=== PATIENT | female | born 1975 | race Caucasian/White ===

== ENCOUNTER 2022-03-08 08:44 | Emergency (ER) | payer OTHER, SELFPAY ==
--- NOTE | 2022-03-08 09:26 | EDPHYS ---
Physician Documentation [facility] Name: Judit Cox Age: 46 yrs Sex: Female : 1975 Arrival Date: 03/08/2022 Time: 08:48 Bed 12 Private MD: ED Physician Matthew Ruiz HPI: 03/08 09:00 This 46 yrs old Female presents to ER via Ambulatory with complaints of Thumb Injury, jmm Laceration. 09:00 The patient or guardian reports injury, pain. Onset: The symptoms/episode jmm began/occurred acutely, just prior to arrival. Modifying factors: The symptoms are alleviated by nothing, the symptoms are aggravated by nothing. Associated signs and symptoms: Pertinent negatives: fever. Patient states she accidently sliced her right thumb with a knife. Unsure of tetanus immunizations. . ROS: 09:00 Constitutional: Negative for fever, chills, and weight loss, Cardiovascular: Negative [facility] for chest pain, palpitations, and edema, Respiratory: Negative for shortness of breath, cough, wheezing, and pleuritic chest pain. 09:00 Skin: Positive for laceration(s). 09:00 All other systems are negative. Exam: 09:00 Constitutional: This is a well developed, well nourished patient who is awake, alert, jmm and in no acute distress. Head/Face: atraumatic. Eyes: EOMI, no conjunctival erythema appreciated ENT: Moist Mucus Membranes Neck: Trachea midline, Supple Chest/axilla: Normal chest wall appearance and motion. Cardiovascular: Regular rate and rhythm. No edema appreciated Respiratory: Normal respirations, no respiratory distress appreciated Abdomen/GI: Non distended Back: Normal ROM 09:00 Skin: small avulsion noted to the right thumb. 09:00 Neuro: Orientation: is normal, Mentation: is normal, Memory: is normal. 09:00 Psych: Behavior/mood is pleasant, cooperative. Vital Signs: 10:03 BP 134 / 85; Pulse 74; Resp 16; Pulse Ox 98% on R/A; iw MDM: 09:00 Patient medically screened. [facility] 09:25 Data reviewed: vital signs, nurses notes. Counseling: I had a detailed discussion with jmdyllan the patient and/or guardian regarding: the historical points, exam findings, and any diagnostic results supporting the discharge/admit diagnosis, the need for outpatient follow up, to return to the emergency department if symptoms worsen or persist or if there are any questions or concerns that arise at home. 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 Exp: iw 10/06/2023. Lot #: [id number]. } Route: IM; Site: right deltoid; 11:00 Follow up: Response: No adverse reaction iw Disposition Summary: 03/08/22 09:25 Discharge Ordered Location: Home [facility] Condition: Stable [facility] Diagnosis - Avulsion of the Thumb [facility] Followup: [facility] - With: Private Physician - When: 2 - 3 days - Reason: Recheck today's complaints, Continuance of care, Re-evaluation by your physician Followup: [facility] - With: Solitario Posada MD - When: 2 - 3 days - Reason: Recheck today's complaints, Continuance of care, Re-evaluation by your physician Discharge Instructions: - Discharge Summary Sheet [facility] - Nonsutured Laceration Care jm - Deep Skin Avulsion [facility] Forms: - Medication Reconciliation Form [facility] - Thank You Letter [facility] - Antibiotic Education [facility] - Prescription Opioid Use [facility] Addendum: 03/12/2022 04:04 Co-signature as Attending Physician, Matthew Ruiz MD I agree with the assessment and c connolly plan of care. Signatures: Matthew Ruiz MD MD cha Mickail, Joel, PA PA [facility] Taylor Valverde, RN RN
[2022-03-08] MEDS ORDERED: TETANUS & DIPHTHERIA TOX,ADULT 0.5 ML VIAL ONE (09:54)
--- NOTE | 2022-03-08 10:16 | ER ---
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 Risk iw Assessment: Do you want to hurt yourself or someone else? Patient reports no desire to harm self or others. Onset of symptoms was March 08, 2022. 10:03 Method Of Arrival: Ambulatory iw 10:03 Acuity: SEE 4 iw 10:05 Coronavirus screen: At this time, the client does not indicate any symptoms associated iw with coronavirus-19. Ebola Screen: Patient negative for fever greater than or equal to 101.5 degrees Fahrenheit, and additional compatible Ebola Virus Disease symptoms Patient denies exposure to infectious person. Patient denies travel to an Ebola-affected area in the 21 days before illness onset. No symptoms or risks identified at this time. Initial Sepsis Screen: Does the patient meet any 2 criteria? No. Patient's initial sepsis screen is negative. Does the patient have a suspected source of infection? No. Patient's initial sepsis screen is negative. Triage Assessment: 10:05 General: Appears in no apparent distress. Behavior is calm, cooperative. Neuro: Level iw of Consciousness is awake, alert, obeys commands. Injury Description: Avulsion sustained to palmar aspect of distal phalanx of left thumb. Screenin:14 Abuse screen: Denies threats or abuse. Denies injuries from another. Nutritional iw screening: No deficits noted. Tuberculosis screening: No symptoms or risk factors identified. Fall Risk None identified. Assessment: 10:05 General: Appears in no apparent distress. Behavior is calm, cooperative. Pain: iw Complains of pain in palmar aspect of distal phalanx of left thumb. Neuro: Level of Consciousness is awake, alert, obeys commands, Oriented to person, place, time, situation, Moves all extremities. Cardiovascular: Patient's skin is warm and dry. Respiratory: Respiratory effort is even, unlabored, Respiratory pattern is regular. Derm: Skin is intact, is healthy with good turgor. Musculoskeletal: Range of motion: intact in all extremities. Vital Signs: 10:03 BP 134 / 85; Pulse 74; Resp 16; Pulse Ox 98% on R/A; iw ED Course: 08:48 Patient arrived in ED. am2 08:48 Bryce Pritchard PA is PHCP. [facility] 08:48 Matthew Ruiz MD is Attending Physician. [facility] 09:25 Solitario Posada MD is Referral Physician. [facility] 09:51 Taylor Valverde, RN is Primary Nurse. iw 10:04 Triage completed. iw 10:05 No provider procedures requiring assistance completed. Patient did not have IV access iw during this emergency room visit. 10:14 Arm band placed on. 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 Exp: iw 10/06/2023. Lot #: [id number]. } Route: IM; Site: right deltoid; 11:00 Follow up: Response: No adverse reaction iw Medication: 10:15 Vaccine Information Statement (VIS) provided today. Questions and/or concerns iw addressed. VIS edition date: December 2020. Outcome: 09:25 Discharge ordered by . [facility] 10:14 Discharged to home ambulatory. iw 10:14 Condition: good 10:14 Discharge instructions given to patient, Instructed on discharge instructions, follow up and referral plans. Demonstrated understanding of instructions, follow-up care, medications. 10:15 Patient left the ED. iw Signatures: Bryce Pritchard PA PA jmm Williams, Irene, RN RN iw Anne-Marie Green am2
[2022-03-08 10:46] VITALS: BP 134/85; O2SAT 98
== END 2022-03-08 10:15 | disposition home or self-care (01) ==
LOC: ER 08:44
DX: S61.011A Laceration without foreign body of right thumb without damage to nail, initial encounter (principal); W45.8XXA Other foreign body or object entering through skin, initial encounter; Y93.89 Activity, other specified; Y92.9 Unspecified place or not applicable; Y99.9 Unspecified external cause status; Z23 Encounter for immunization
CPT/HCPCS: 90471; 90714; 99282

== ENCOUNTER 2022-07-18 09:35 | Emergency (ER) | payer SELFPAY ==
--- OUTSIDE RECORDS SUMMARY | 2022-07-18 09:42 | XMS REPORT | Continuity of Care Document ---
:1975 Author Organization [facility] t Address [address] [place] [address] Care Team Providers Name Role Phone Pcp, Patient Does Not Have A Primary Care Physician [id number] KAYA HERRERA Attending Clinician Unavailable Kaya Herrera DO Attending Clinician Doctor Unassigned, [place] Attending Clinician Unavailable Payers Payer Name Policy Type Policy Number Effective Date Expiration Date S ource [employer] [place] - [id number] 2016 00:00:00 OUT OF STATE Problems Condition Condition Condition Status Onset Resolution Last Treating Co mments Source Name Details Category Date Date Treatment Clinician Date B12 B12 Disease Active Univers deficiency deficiency 2-27 it y of 00:00: [place] 00 [facility] Anemia Anemia Disease Active Univers 2-09 ity of 00:00: [place] 00 [facility] Dyslipidem Dyslipidem Disease Active U nivers ia ia 2-09 ity of 00:00: [place] 00 [facility] Dizziness Dizziness Disease Active Uni vers 2-08 ity of 00:00: [place] 00 [facility] History of History of Disease Active U nivers abnormal abnormal 2-07 ity of cervical cervical 00:00: [place] Pap smear Pap smear 00 [facility] Tobacco Tobacco Disease Active Univers use use 1-23 ity of disorder disorder 00:00: [place] 00 [facility] Allergies, Adverse Reactions, Alerts Allergy Allergy Status Severity Reaction(s) Onset Inactive Treating Comm ents Source Name Type Date Date Clinician COCONUT DRUG Active Anaphylaxis 2021-05 Univ ers INGREDI 2-17 ity of 00:00: [place] 00 [facility] Coconut Propensi Active Anaphylaxis 2021-05 Un cassy ty to 17 ity of adverse 00:00: [place] reaction 00 [facility] NO KNOWN Drug Active Univers ALLERGIE Class ity of S [facility] Social History Social Habit Start Date Stop Date Quantity Comments Source History of Smokes tobacco University of tobacco use daily [facility] Alcohol intake 2022-05-04 2022-05-04 0 /d University of 00:00:00 00:00:00 [facility] Tobacco use and 2016-06-25 2016-06-25 Smokeless tobacco Un iversity of exposure 00:00:00 00:00:00 non-user [facility] Sex Assigned [birth year] Universit y of 00:00:00 00:00:00 [facility] Smoking Status Start Date Stop Date Source Smokes tobacco daily 2016-06-25 00:00:00 Univers ity [facility] Medications Ordered Filled Start Stop Current Ordering Indication Dosage Frequency Signature Comments Components Source Medication Medication Date Date Medication? Clinician (SIG) Name Name dexamethaso 2021-05 No 10mg 10 mg, Uni vers ne sod phos 07-05 Oral, ity of PF 20:00: 20:20 ONCE, 1 [place] injection 00 :00 dose, On Medica l 10 mg [facility] 05/04/22 at 1400, 1 mL diazePAM 2021-05 No 5mg 5 mg, Univers (VALIUM) 07-05 Oral, ity of tablet 5 mg 20:00[place] 20:20 [place] dose, On Medical [facility] 05/04/22 at 1400, FUNMILAYO cyclobenzap 2021-05 Yes [id number] 10mg Take 1 Univers rine 10 mg 2-17 tablet by ity of tablet 00:00: mouth 3 [place] 00 (three) Medical times [place] daily as needed for Muscle Spasms. vitamin Yes 1000ug Take 1 Univer s B-12 2-27 tablet by ity of (VITAMIN 00:00: mouth [place] B-12) 1,000 00 daily. Medica l mcg tablet Branch vitamin Yes 1000ug Take 1 Univer s B-12 2-27 tablet by ity of (VITAMIN 00:00: mouth [place] B-12) 1,000 00 daily. Medica l mcg tablet Branch meclizine Yes [id number] 25mg Take 1 Un cassy 25 mg 2-08 tablet by ity of tablet 00:00: mouth 3 00 (three) Medical times [place] daily as needed for Dizziness. meclizine Yes [id number] 25mg Take 1 Un cassy 25 mg 2-08 tablet by ity of tablet 00:00: mouth 3 00 (three) Medical times [place] daily as needed for Dizziness. Vital Signs Vital Name Observation Time Observation Value Comments Source Systolic blood 2022-05-04 19:51:00 159 mm[Hg] Univer sity of pressure [facility] Diastolic blood 2022-05-04 19:51:00 86 mm[Hg] [facility] rate 2022-05-04 19:51:00 86 /min [facility] Body temperature 2022-05-04 19:51:00 37.39 [place]ma [facility] Respiratory rate 2022-05-04 19:51:00 18 /min [facility] Body height 2022-05-04 19:51:00 175.3 cm [facility] Body weight 2022-05-04 19:51:00 83.462 kg [facility] BMI 2022-05-04 19:51:00 27.17 kg/m2 [facility] Oxygen saturation in 2022-05-04 19:51:00 99 /min [facility] Arterial blood by [facility] Pulse oximetry Branch Procedures Procedure Date / Time Performed Performing Clinician [facility] e NOTICE OF PRIVACY 2022-05-04 19:46:43 Doctor Unassigned, No Univ [facility] PRACTICES Name Medical Branch CONSENT/REFUSAL FOR 2022-05-04 19:45:29 [facility], [facility] AND Name Medical Branch TREATMENT Encounters Start End Encounter Admission Attending Care Care Encounter Source Date/Time Date/Time Type Type Clinicians Facility Department ID 2022-04-29 Outpatient [facility] [id number] Common 14:18:03 [id number] [facility] 2022-05-04 2022-05-04 Emergency X JAVIER [facility] ERT [id number] Univers 13:52:00 14:24:00 KAYA young of [facility] 2022-05-04 2022-05-04 Emergency Javier [facility] [id number] Univers 13:52:00 14:24:00 Kaya MOLINA [id number] ity of [place] [id number] [facility] [id number] [facility] 084 Branch 2022-05-04 2022-05-04 Orders Doctor LARON [id number] Univers 00:00:00 00:00:00 Only Unassigned, DAISY [id number] ity of [place] [facility] [id number] [facility] [id number] [facility] 009 Branch Results This patient has no known results.
[2022-07-18] MEDS ORDERED: DIPHENHYDRAMINE 25 MG TAB/CAP ONE (09:48)
--- NOTE | 2022-07-18 09:48 | ER ---
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 pt denies SOB. Pt reports allergy to coconut. 09:38 Onset of symptoms was July 17, 2022. aa5 09:38 Acuity: SEE 3 aa5 :38 Coronavirus screen: At this time, the client does not indicate any symptoms associated aa5 with coronavirus-19. Ebola Screen: Patient denies travel to an Ebola-affected area in the 21 days before illness onset. Onset: The symptoms/episode began/occurred 1 day(s) ago. :38 Method Of Arrival: Ambulatory aa5 09:38 Initial Sepsis Screen: Does the patient meet any 2 criteria? No. Patient's initial aa5 sepsis screen is negative. Does the patient have a suspected source of infection? No. Patient's initial sepsis screen is negative. Risk Assessment: Do you want to hurt yourself or someone else? Patient reports no desire to harm self or others. Historical: - Allergies: 09:48 Coconut; aa5 - Home Meds: 09:48 None [Active]; aa5 - PMHx: 09:48 None; aa5 - PSHx: 09:48 Cholecystectomy; Total abdominal hysterectomy; aa5 Vital Signs: 09:38 BP 148 / 96; Pulse 100; Resp 16 S; Temp 98.6(O); Pulse Ox 96% on R/A; Weight 83.91 kg aa5 (R); Height 5 ft. 9 in. (175.26 cm) (R); 09:38 Body Mass Index 27.32 (83.91 kg, 175.26 cm) aa5 ED Course: :38 Patient arrived in ED. mr 09:38 Radha Felix FNP-C is [facility]. kb 09:38 Angelo Archer MD is Attending Physician. kb 09:38 Arm band placed on Patient placed in an exam room, on a stretcher. aa5 09:44 Angeline Kaur, RN is Primary Nurse. ld1 09:45 Triage completed. aa5 10:12 Patient did not have IV access during this emergency room visit. ld1 Administered Medications: 09:49 Drug: predniSONE 40 mg Route: PO; ld1 09:49 Drug: Pepcid (famotidine) 20 mg Route: PO; ld1 09:49 Drug: Benadryl (diphenhydrAMINE) 25 mg Route: PO; ld1 Outcome: 09:47 Discharge ordered by . kb 10:11 Discharged to home ambulatory. ld1 10:11 Condition: good 10:11 Discharge instructions given to patient, family, Instructed on discharge instructions, follow up and referral plans. medication usage, safety practices, Demonstrated understanding of instructions, follow-up care, medications, Prescriptions given X 2. 10:12 Patient left the ED. ld1 Signatures: Radha Felix, SONIA AMAYAP-Jackie Brantley mr VidalTia, RN RN aa Angeline Kaur, RN RN ld1
--- NOTE | 2022-07-18 09:48 | EDPHYS ---
Physician Documentation [facility] Name: Judit Cox Age: 46 yrs Sex: Female : 1975 Arrival Date: 07/18/2022 Time: 09:38 Bed 13 Private MD: ED Physician Angelo Archer HPI: 07/18 09:46 This 46 yrs old Female presents to ER via Ambulatory with complaints of Allergic kb Reaction, Facial Swelling. 09:46 The patient presents with localized swelling. Onset: The symptoms/episode kb began/occurred yesterday. Associated signs and symptoms: Pertinent positives: swelling. Possible causes: coconut. At home the patient or guardian has treated the symptoms with Benadryl. Severity of symptoms: At their worst the symptoms were mild in the emergency department the symptoms are unchanged. The patient has not experienced similar symptoms in the past. The patient has not recently seen a physician. Historical: - Allergies: 09:48 Coconut; aa5 - Home Meds: 09:48 None [Active]; aa5 - PMHx: 09:48 None; aa5 - PSHx: 09:48 Cholecystectomy; Total abdominal hysterectomy; aa5 ROS: 09:43 Constitutional: Negative for fever, chills, and weight loss. kb 09:43 Neck: Positive for swelling. 09:43 All other systems are negative. Exam: 09:43 Constitutional: This is a well developed, well nourished patient who is awake, alert, kb and in no acute distress. Head/Face: Normocephalic, atraumatic. ENT: Moist Mucous membranes Cardiovascular: Regular rate and rhythm with a normal S1 and S2. No gallops, murmurs, or rubs. No pulse deficits. Respiratory: Respirations even and unlabored. No increased work of breathing. Talking in full sentences Abdomen/GI: Soft, non-tender. No distention MS/ Extremity: Pulses equal, no cyanosis. Neurovascular intact. Full, normal range of motion. Neuro: Awake and alert, GCS 15, oriented to person, place, time, and situation. Moves all extremities. Normal gait. Psych: Awake, alert, with orientation to person, place and time. Behavior, mood, and affect are within normal limits. 09:43 ENT: External ear(s): are unremarkable, Ear canal(s): are normal, TM's: erythema, is not appreciated, fluid levels, on the right, Mouth: is normal. 09:43 Neck: External neck: swelling, that is mild, of the left lateral aspect of neck and left anterior aspect of neck. Vital Signs: 09:38 BP 148 / 96; Pulse 100; Resp 16 S; Temp 98.6(O); Pulse Ox 96% on R/A; Weight 83.91 kg aa5 (R); Height 5 ft. 9 in. (175.26 cm) (R); 09:38 Body Mass Index 27.32 (83.91 kg, 175.26 cm) aa5 MDM: 09:38 Patient medically screened. kb 09:43 Differential diagnosis: anaphylaxis, angioedema. Data reviewed: vital signs, nurses kb notes. Counseling: I had a detailed discussion with the patient and/or guardian regarding: the historical points, exam findings, and any diagnostic results supporting the discharge/admit diagnosis, the need for outpatient follow up, a family practitioner, to return to the emergency department if symptoms worsen or persist or if there are any questions or concerns that arise at home. ED course: Patient is a 46-year-old female who developed swelling to the left side of her neck yesterday after drinking a vitamin water that contained coconut. Patient reports allergy to coconut. On exam patient has mild swelling to left side of neck, respirations even and unlabored, lungs clear bilaterally, posterior pharynx without redness or swelling, left ear exam normal, right TM with fluid levels noted. Gave option of IV or p.o. medications. Patient request oral medications. Educated on return precautions and need for follow-up with PCP.. Administered Medications: 09:49 Drug: predniSONE 40 mg Route: PO; ld1 09:49 Drug: Pepcid (famotidine) 20 mg Route: PO; ld1 09:49 Drug: Benadryl (diphenhydrAMINE) 25 mg Route: PO; ld1 Disposition: 10:31 Co-signature as Attending Physician, Angelo Archer MD I reviewed the patient's care rn provided by the Advanced Practice Provider and agree with the diagnosis and treatment plan. Disposition Summary: 07/18/22 09:47 Discharge Ordered Location: Home kb Condition: Stable kb Diagnosis - Allergy to other foods - coconut kb Followup: kb - With: Emergency Department - When: As needed - Reason: Worsening of condition Followup: kb - With: Private Physician - When: 2 - 3 days - Reason: Recheck today's complaints, Continuance of care, Re-evaluation by your physician Discharge Instructions: - Discharge Summary Sheet kb - Food Allergy, [id number] kb Forms: - Medication Reconciliation Form kb - Thank You Letter kb - Antibiotic Education kb - Prescription Opioid Use kb Prescriptions: - Pepcid 20 mg Oral Tablet - take 1 tablet by ORAL route every 12 hours for 5 days; 10 tablet; Refills: 0, kb Product Selection Permitted - Prednisone 20 mg Oral Tablet - take 1 tablet by ORAL route once daily for 5 days; 5 tablet; Refills: 0, kb Product Selection Permitted Signatures: Radha Felix, ANNEMARIE-C ANNEMARIE-Angelo Wu MD MD rn Calderon, Audri, RN RN aa5 Angeline Kaur RN RN ld1
[2022-07-18] MEDS ORDERED: FAMOTIDINE 20 MG TAB ONE (09:49)
[2022-07-18] MEDS ORDERED: predniSONE 20 MG TAB ONE (09:49)
[2022-07-18 10:35] VITALS: BP 136/78; TEMP 98; O2SAT 100
== END 2022-07-18 10:12 | disposition home or self-care (01) ==
LOC: ER 09:35
DX: R22.1 Localized swelling, mass and lump, neck (principal); Z91.018 Allergy to other foods
CPT/HCPCS: 99283; J7512

== ENCOUNTER 2022-07-25 08:38 | Emergency (ER) | payer SELFPAY ==
--- OUTSIDE RECORDS SUMMARY | 2022-07-25 08:42 | XMS REPORT | Continuity of Care Document ---
:1975 Author Organization [facility] t Address [address] [facility] [address] [place] [address] Care Team Providers Name Role Phone Pcp, Patient Does Not Have A Primary Care Physician [id number] KAYA HERRERA Attending Clinician Unavailable Kaya Herrera DO Attending Clinician Doctor Unassigned, [place] Attending Clinician Unavailable Payers Payer Name Policy Type Policy Number Effective Date Expiration Date S ource [employer] [place] - [id number] 2016 00:00:00 OUT OF STATE Problems Condition Condition Condition Status Onset Resolution Last Treating Co mments Source Name Details Category Date Date Treatment Clinician Date B12 B12 Disease Active Univers deficiency deficiency 2-27 it y of 00:00: [place] 00 [facility] Anemia Anemia Disease Active Univers 2-09 ity of 00:00: [place] 00 [facility] Dyslipidem Dyslipidem Disease Active U nivers ia ia 2-09 ity of 00:00: [place] 00 [facility] Dizziness Dizziness Disease Active Uni vers 2-08 ity of 00:00: [place] 00 Medical Branch History of History of Disease Active U nivers abnormal abnormal 2-07 ity of cervical cervical 00:00: [place] Pap smear Pap smear 00 [facility] Tobacco Tobacco Disease Active Univers use use 1-23 ity of disorder disorder 00:00: [place] 00 [facility] Allergies, Adverse Reactions, Alerts Allergy Allergy Status Severity Reaction(s) Onset Inactive Treating Comm ents Source Name Type Date Date Clinician COCONUT DRUG Active Anaphylaxis 2021-05 Univ ers INGREDI 2-17 ity of 00:00: [place] 00 Medical [facility] Coconut Propensi Active Anaphylaxis 2021-05 Un cassy ty to 17 ity of adverse 00:00: [place] reaction 00 [facility] NO KNOWN Drug Active Univers ALLERGIE Class ity of S [facility] Social History Social Habit Start Date Stop Date Quantity Comments Source History of Smokes tobacco University of tobacco use daily [facility] Alcohol intake 2022-05-04 2022-05-04 0 /d University of 00:00:00 00:00:00 [facility] Tobacco use and 2016-06-25 2016-06-25 Smokeless tobacco Un iversity of exposure 00:00:00 00:00:00 non-user [facility] Sex Ass[birth year] Universit y of 00:00:00 00:00:00 [facility] Smoking Status Start Date Stop Date Source Smokes tobacco daily 2016-06-25 00:00:00 Univers ity [facility] Medications Ordered Filled Start Stop Current Ordering Indication Dosage Frequency Signature Comments Components Source Medication Medication Date Date Medication? Clinician (SIG) Name Name dexamethaso 2021-05 No 10mg 10 mg, Uni vers ne sod phos 07-05 Oral, ity of PF 20:00: 20:20 ONCE, 1 [place] injection 00 :00 dose, On Medica l 10 mg [facility] 05/04/22 at 1400, 1 mL diazePAM 2021-05 No 5mg 5 mg, Univers (VALIUM) 07-05 Oral, ity of tablet 5 mg 20:00[place] 20[place]20 [place] dose[place] On Medical [facility] 05/04/22 at 1400, FUNMILAYO cyclobenzap 2021-05 Yes [id number] 10mg Take 1 Univers rine 10 mg 2-17 tablet by ity of tablet 00:00: mouth 3 [place] 00 (three) Medical times [place] daily as needed for Muscle Spasms. vitamin Yes 1000ug Take 1 Univer s B-12 2-27 tablet by ity of (VITAMIN 00:00: mouth [place] B-12) 1,000 00 daily. Medica l mcg tablet Branch vitamin Yes 1000ug Take 1 Univer s B-12 2-27 tablet by ity of (VITAMIN 00:00: mouth [place] B-12) 1,000 00 daily. Medica l mcg tablet Branch meclizine Yes [id number] 25mg Take 1 Un cassy 25 mg 2-08 tablet by ity of tablet 00:00: mouth 3 00 (three) Medical times [place] daily as needed for Dizziness. meclizine Yes [id number] 25mg Take 1 Un cassy 25 mg 2-08 tablet by ity of tablet 00:00: mouth 3 00 (three) Medical times [place] daily as needed for Dizziness. Vital Signs Vital Name Observation Time Observation Value Comments Source Systolic blood 2022-05-04 19:51:00 159 mm[Hg] Univer sity of pressure [facility] Diastolic blood 2022-05-04 19:51:00 86 mm[facility]Hg[facility] 2022-05-04 19:51:00 86 /min [facility] Body temperature 2022-05-04 19:51:00 37.39 [facility] Respiratory rate 2022-05-04 19:51:00 18 /min [facility] Body height 2022-05-04 19:51:00 175.3 cm [facility] Body weight 2022-05-04 19:51:00 83.462 kg [facility] BMI 2022-05-04 19:51:00 27.17 kg/m2 [facility] Oxygen saturation in 2022-05-04 19:51:00 99 /min [facility] Arterial blood by [facility] Pulse oximetry Branch Procedures Procedure Date / Time Performed Performing Clinician [facility] e NOTICE OF PRIVACY 2022-05-04 19:46:43 Doctor Unassigned, No Univ [facility] Name Medical Branch CONSENT/REFUSAL FOR 2022-05-04 19:45:29 [facility], [facility] AND Name Medical Branch TREATMENT Encounters Start End Encounter Admission Attending Care Care Encounter Source Date/Time Date/Time Type Type Clinicians Facility Department ID 2022-04-29 Outpatient [facility] [id number] Common 14:18:03 [id number] [facility] 2022-05-04 2022-05-04 Emergency X JAVIER [facility] ERT [id number] Univers 13:52:00 14:24:00 KAYA young of [facility] 2022-05-04 2022-05-04 Emergency Javier [facility] [id number] Univers 13:52:00 14:24:00 Kaya MOLINA [id number] ity of [place] [id number] [facility] [id number] [facility] 084 Branch 2022-05-04 2022-05-04 Orders Doctor LARON [id number] Univers 00:00:00 00:00:00 Only Unassigned, DAISY [id number] ity of [place] [facility] [id number] [facility] [id number] [facility] 009 Branch Results This patient has no known results.
[2022-07-25] MEDS ORDERED: KETOROLAC 30 MG/ML INJ ONE (09:19)
[2022-07-25] MEDS ORDERED: dexAMETHasone 10 MG/ML VIAL ONE (09:19)
[2022-07-25] MEDS ORDERED: HYDROCODONE/CHLORPHEN 5 ML/OSYR ONE (09:19)
[2022-07-25] MEDS ORDERED: ALBUTEROL 2.5 MG/3 ML NEB SOL ONE (09:19)
--- NOTE | 2022-07-25 10:04 | RAD REPORT ---
[facility]25/[facility] 9:30 am CLINICAL HISTORY: Chest pain;Cough COMPARISON: No comparisons TECHNIQUE: PA and lateral views of the chest. FINDINGS: Right hemidiaphragm is elevated. Patchy right basilar airspace opacities, could reflect at electasis or early airspace disease. No pneumothorax or effusion. The cardiomediastinal contours are unremarkable. IMPRESSION: Patchy right basilar airspace opacities, could reflect atelectasis or early airspace dis ease.
[2022-07-25 10:34] LABS: SARS-COV-2 RT PCR NEGATIVE (NEGATIVE)
[2022-07-25] MEDS ORDERED: NA CHLORIDE 0.9% 0 ML ONE (11:23)
[2022-07-25] MEDS ORDERED: CEFTRIAXONE 1000 MG/VIAL ONE (11:23)
[2022-07-25] MEDS ORDERED: LIDOCAINE 1% MPF 5 ML VIAL ONE (11:28)
[2022-07-25 12:58] VITALS: TEMP 97.5
[2022-07-25 13:01] VITALS: BP 138/80; O2SAT 96
--- NOTE | 2022-07-29 13:18 | EKG ---
Test Date: 2022-07-25 Test Time: 08:55:58 Combiner: DADA MEASUREMENT RESULTS: Intervals: Rate: 97 AR: 124 QRSD: 78 QT: 346 QTc: 439 [place]: P: 37 AR: 124 QRS: 45 T: 51 INTERPRETIVE STATEMENTS: Normal sinus rhythm Normal ECG No previous ECG available for comparison Electronically Signed On 07-29-22 13:09:47 CDT by Jean [place]
--- NOTE | 2022-07-29 13:18 | EKG ---
Test Date: 2022-07-25 Test Time: 08:57:12 Line Haul Driver: DADA MEASUREMENT RESULTS: Intervals: Rate: 94 MT: 122 QRSD: 78 QT: 340 QTc: 425 [place]: P: 52 MT: 122 QRS: 52 T: 52 INTERPRETIVE STATEMENTS: Normal sinus rhythm Normal ECG No previous ECG available for comparison Electronically Signed On 07-29-22 13:09:45 CDT by Jean [place]
--- NOTE | 2022-08-09 15:20 | ER ---
Nurse's Notes [facility] Name: Judit Cox Age: 46 yrs Sex: Female : 1975 Arrival Date: 07/25/2022 Time: 08:39 Bed 5 Private MD: Diagnosis: Pneumonia, unspecified organism Presentation: 07/25 08:43 Chief complaint: Right sided chest pressure, cough, congestion, pain with cough, and hb SOB x 2 days. Coronavirus screen: Client presents with at least one sign or symptom that may indicate coronavirus-19. Standard/surgical mask placed on the client. Provider contacted for isolation considerations. Ebola Screen: No symptoms or risks identified at this time. Initial Sepsis Screen: Does the patient meet any 2 criteria? No. Patient's initial sepsis screen is negative. Does the patient have a suspected source of infection? No. Patient's initial sepsis screen is negative. Risk Assessment: Do you want to hurt yourself or someone else? Patient reports no desire to harm self or others. Onset of symptoms was July 24, 2022. 08:43 Method Of Arrival: Ambulatory hb 08:43 Acuity: SEE 3 hb Triage Assessment: 09:00 General: Appears in no apparent distress. Behavior is calm, cooperative. Pain: db Complains of pain in chest. Respiratory: Reports shortness of breath cough that is Breath sounds are coarse bilaterally. Onset: The symptoms/episode began/occurred gradually, the patient has mild shortness of breath. 09:00 Neuro: Level of Consciousness is awake, alert, obeys commands, Oriented to person, db place, time. 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 - Social history:: Smoking status: Patient denies any tobacco usage or history of. Screenin:00 [facility] ED Fall Risk Assessment (Adult) History of falling in the last 3 months, db including since admission No falls in past 3 months (0 pts) Confusion or Disorientation No (0 pts) Intoxicated or Sedated No (0 pts) Impaired Gait No (0 pts) Mobility Assist Device Used No (0 pt) Altered Elimination No (0 pt) Score/Fall Risk Level 0 - 2 = Low Risk Oriented to surroundings, Maintained a safe environment, Educated pt \T\ family on fall prevention, incl call for assistance when getting out of bed. Abuse screen: Denies threats or abuse. Denies injuries from another. Nutritional screening: No deficits noted. Tuberculosis screening: No symptoms or risk factors identified. Assessment: 09:00 Reassessment: Patient appears in no apparent distress at this time. Patient and/or db family updated on plan of care and expected duration. Pain level reassessed. Patient is alert, oriented x 3, equal unlabored respirations, skin warm/dry/pink. sob at rest gradually worse. right side neck feels swollen. Reassessment: chest pain with cough. General: Appears in no apparent distress. comfortable. Pain: Complains of pain in chest. Neuro: Level of Consciousness is awake, alert, obeys commands, Oriented to person, place, time, situation, Speech is normal. Cardiovascular: Reports chest pain, with cough Capillary refill < 3 seconds Rhythm is sinus rhythm. 10:00 Reassessment: Patient appears in no apparent distress at this time. Patient and/or db family updated on plan of care and expected duration. Pain level reassessed. Patient is alert, oriented x 3, equal unlabored respirations, skin warm/dry/pink. 11:00 Reassessment: Patient appears in no apparent distress at this time. Patient and/or db family updated on plan of care and expected duration. Pain level reassessed. Patient is alert, oriented x 3, equal unlabored respirations, skin warm/dry/pink. 11:38 Respiratory: Airway is patent Respiratory effort is even, unlabored. db Vital Signs: 08:43 BP 183 / 93; Pulse 105; Resp 24; Temp 97.5(TE); Pulse Ox 100% on R/A; Weight 83.91 kg; hb Height 5 ft. 9 in. ; Pain 5/10; 09:00 BP 157 / 90; Pulse 96; Resp 18; Pulse Ox 96% on Nebulizer Mask; db 10:30 BP 141 / 75; Pulse 82; Resp 16; Pulse Ox 94% ; db 11:00 BP 138 / 80; Pulse 88; Resp 16; Pulse Ox 96% on R/A; db 08:43 Body Mass Index 27.32 (83.91 kg, 175.26 cm) hb 08:43 Pain Scale: Adult hb ED Course: 08:39 Patient arrived in ED. am2 08:40 Lane Solis, ROWENA is PHCP. pm1 08:40 Angelo Archer MD is Attending Physician. pm1 08:44 Triage completed. hb 09:05 Gricelda Cavanaugh, RN is Primary Nurse. db 09:08 EKG done, by ED staff, reviewed by Lane Solis NP. em1 09:31 Chest Pa And Lat (2 Views) XRAY In Process Unspecified. EDMS 11:37 Patient has correct armband on for positive identification. Placed in gown. Bed in low db position. Call light in reach. Side rails up X 1. Client placed on continuous cardiac and pulse oximetry monitoring. NIBP monitoring applied. Warm blanket given. 11:38 No provider procedures requiring assistance completed. Patient did not have IV access db during this emergency room visit. 11:38 Patient placed in an exam room. db Administered Medications: 09:20 Drug: Tussionex Pennkinetic ER PO Suspension 5 ml Route: PO; db 09:54 Follow up: Response: No adverse reaction; Pain is decreased db 11:32 Follow up: Response: No adverse reaction db 09:22 Drug: Ketorolac IM 60 mg Route: IM; Site: left ventrogluteal; db 11:32 Follow up: Response: No adverse reaction; Pain is decreased db 09:23 Drug: Dexamethasone IM 10 mg Route: IM; Site: right ventrogluteal; db 11:32 Follow up: Response: No adverse reaction db 09:30 Drug: Albuterol Inhalation 5 mg Route: Inhalation; db 11:32 Follow up: Response: No adverse reaction db 10:09 CANCELLED (pending covid and flu swabs): Rocephin IV 1 grams IV at calculated rate pm1 once; Given slow IV push per pharmacy instructions 11:22 CANCELLED (Physician Discretion): Rocephin IV 1 grams IV at calculated rate once; Given pm1 slow IV push per pharmacy instructions 11:22 Drug: Rocephin (cefTRIAXone) IM 1 grams Route: IM; Site: left ventrogluteal; db 11:33 Follow up: Response: No adverse reaction db Medication: 09:00 VIS not applicable for this client. db Outcome: 10:54 Discharge ordered by . pm1 11:38 Discharged to home ambulatory. db 11:38 Condition: stable 11:38 Discharge instructions given to patient, Instructed on discharge instructions, follow up and referral plans. Prescriptions given X 3. 11:44 Patient left the ED. db Signatures: Dispatcher [employer] [place] Harkins em1 Lane Solis, GLASS TECHNICIAN GLASS TECHNICIAN pm1 Karyn Lebron, RN RN Anne-Marie Cohen am2 Gricelda Cavanaugh RN RN db
--- NOTE | 2022-08-09 15:20 | EDPHYS ---
Physician Documentation [facility] Name: Judit Cox Age: 46 yrs Sex: Female : 1975 Arrival Date: 07/25/2022 Time: 08:39 Bed 5 Private MD: ED Physician Angelo Archer HPI: 07/25 09:00 This 46 yrs old Female presents to ER via Ambulatory with complaints of Cough, Chest pm1 pain, Breathing Difficulty, Chest Pressure. 09:00 The patient or guardian reports cough, with productive sputum. Onset: The pm1 symptoms/episode began/occurred 3 day(s) ago. Severity of symptoms: in the emergency department the symptoms are actually worse. Modifying factors: The symptoms are alleviated by nothing, the symptoms are aggravated by nothing. Associated signs and symptoms: Pertinent positives: chest pain, with cough, shortness of breath, post nasal drainage, Pertinent negatives: diarrhea, ear ache, fever, nausea, sore throat, vomiting. The patient has not experienced similar symptoms in the past. The patient has not recently seen a physician. 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 - Social history:: Smoking status: Patient denies any tobacco usage or history of. ROS: 09:00 Constitutional: Negative for fever, chills, and weight loss. pm1 09:00 Abdomen/GI: Negative for abdominal pain, nausea, vomiting, diarrhea, and constipation, Back: Negative for injury and pain, MS/Extremity: Negative for injury and deformity, Skin: Negative for injury, rash, and discoloration, Neuro: Negative for headache, weakness, numbness, tingling, and seizure. 09:00 Cardiovascular: Positive for chest pain, with cough, of the anterior aspect of right upper chest. 09:00 Respiratory: Positive for cough, shortness of breath. 09:00 All other systems are negative. Exam: 09:00 Constitutional: This is a well developed, well nourished patient who is awake, alert, pm1 and in no acute distress. Head/Face: Normocephalic, atraumatic. 09:00 Back: No spinal tenderness. No costovertebral tenderness. Full range of motion. Skin: Warm, dry with normal turgor. Normal color with no rashes, no lesions, and no evidence of cellulitis. MS/ Extremity: Pulses equal, no cyanosis. Neurovascular intact. Full, normal range of motion. 09:00 Eyes: Exam is negative for acute changes. 09:00 ENT: Exam is negative for acute changes, External ear(s): no acute changes, Ear canal(s): no acute changes, TM's: no acute changes, Mouth: no acute changes, Lips: normal, moist, Oral mucosa: normal, pink and intact, moist. 09:00 Neck: Exam negative for acute changes. 09:00 Chest/axilla: Inspection: normal, Palpation: tenderness, that is moderate, of the anterior aspect of right upper chest, that totally reproduces the patient's complaints, focal point pain on right upper chest that is reproducible with palpation, deep breathing, and coughing. 09:00 Cardiovascular: Exam negative for acute changes, Rate: normal, Rhythm: regular, Pulses: no pulse deficits are appreciated, Heart sounds: normal, normal S1and S2. 09:00 Respiratory: Exam negative for acute changes, respiratory distress, shortness of breath, Breath sounds: are clear throughout. 09:00 Abdomen/GI: Exam negative for acute changes, Inspection: abdomen appears normal, Palpation: abdomen is soft and non-tender. 09:00 Neuro: Exam negative for acute changes, Orientation: is normal, Mentation: is normal, Motor: is normal, moves all fours. Vital Signs: 08:43 BP 183 / 93; Pulse 105; Resp 24; Temp 97.5(TE); Pulse Ox 100% on R/A; Weight 83.91 kg; hb Height 5 ft. 9 in. ; Pain 5/10; 09:00 BP 157 / 90; Pulse 96; Resp 18; Pulse Ox 96% on Nebulizer Mask; db 10:30 BP 141 / 75; Pulse 82; Resp 16; Pulse Ox 94% ; db 11:00 BP 138 / 80; Pulse 88; Resp 16; Pulse Ox 96% on R/A; db 08:43 Body Mass Index 27.32 (83.91 kg, 175.26 cm) hb 08:43 Pain Scale: Adult hb MDM: 08:45 Patient medically screened. pm1 09:21 Differential Diagnosis: Bronchitis Influenza Upper Respiratory Infection Pneumonia pm1 Other COVID. 09:31 Data reviewed: vital signs. pm1 10:53 Counseling: I had a detailed discussion with the patient and/or guardian regarding: the pm1 historical points, exam findings, and any diagnostic results supporting the discharge/admit diagnosis, lab results, radiology results, the need for outpatient follow up, to return to the emergency department if symptoms worsen or persist or if there are any questions or concerns that arise at home. 07/25 09:12 Order name: COVID-19/FLU A+B; Complete Time: 10:47 pm1 07/25 08:58 Order name: Chest Pa And Lat (2 Views) XRAY; Complete Time: 10:04 pm1 07/25 08:58 Order name: EKG; Complete Time: 08:58 pm1 07/25 08:58 Order name: EKG - Nurse/Tech; Complete Time: 09:06 pm1 EC:11 Rate is 94 beats/min. Rhythm is regular, Normal Sinus Rhythm with No ectopy. QRS [place] pm1 is Normal. CA interval is normal. QRS interval is normal. QT interval is normal. No Q waves. T waves are Normal. No ST changes noted. Clinical impression: Normal ECG. Administered Medications: 09:20 Drug: Tussionex Pennkinetic ER PO Suspension 5 ml Route: PO; db 09:54 Follow up: Response: No adverse reaction; Pain is decreased db 11:32 Follow up: Response: No adverse reaction db 09:22 Drug: Ketorolac IM 60 mg Route: IM; Site: left ventrogluteal; db 11:32 Follow up: Response: No adverse reaction; Pain is decreased db 09:23 Drug: Dexamethasone IM 10 mg Route: IM; Site: right ventrogluteal; db 11:32 Follow up: Response: No adverse reaction db 09:30 Drug: Albuterol Inhalation 5 mg Route: Inhalation; db 11:32 Follow up: Response: No adverse reaction db 10:09 CANCELLED (pending covid and flu swabs): Rocephin IV 1 grams IV at calculated rate pm1 once; Given slow IV push per pharmacy instructions 11:22 CANCELLED (Physician Discretion): Rocephin IV 1 grams IV at calculated rate once; Given pm1 slow IV push per pharmacy instructions 11:22 Drug: Rocephin (cefTRIAXone) IM 1 grams Route: IM; Site: left ventrogluteal; db 11:33 Follow up: Response: No adverse reaction db Disposition: 15:18 Co-signature as Attending Physician, Angelo Archer MD I reviewed the patient's care rn provided by the Advanced Practice Provider and agree with the diagnosis and treatment plan. Disposition Summary: 07/25/22 10:54 Discharge Ordered Location: Home pm1 Problem: new pm1 Symptoms: have improved pm1 Condition: Stable pm1 Diagnosis - Pneumonia, unspecified organism pm1 Followup: pm1 - With: Emergency Department - When: As needed - Reason: Worsening of condition Followup: pm1 - With: Private Physician - When: 2 - 3 days - Reason: Recheck today's complaints, Continuance of care, Re-evaluation by your physician Discharge Instructions: - Discharge Summary Sheet pm1 - Community-Acquired Pneumonia, Adult pm1 Forms: - Work release form pm1 - Medication Reconciliation Form pm1 - Thank You Letter pm1 - Antibiotic Education pm1 - Prescription Opioid Use pm1 Prescriptions: - Ventolin HFA 90 mcg/actuation Inhalation HFA Aerosol Inhaler - inhale 2 inhalation by INHALATION route every 4 to 6 hours As needed; 1 unit; pm1 Refills: 0, Product Selection Permitted - Zithromax Z-Rich 250 mg Oral Tablet - take 1 tablet by ORAL route as directed for 5 days Day 1 - take two (2) tablets pm1 one time. Day 2, 3, 4 , 5 take one (1) tablet once daily.; 6 tablet; Refills: 0, Product Selection Permitted - Guaifenesin AC 10-100 mg/5 mL Oral Liquid - take 10 milliliters by ORAL route every 4 hours As needed; 240 milliliter; pm1 Refills: 0, Product Selection Permitted Signatures: Dispatcher [employer] EDME Angelo Archer MD MD rn Marinas, Patrick, NP BATH MIX OPERATOR pm1 Karyn Lebron RN RN hb Benton, Danielle, RN RN db Corrections: (The following items were deleted from the chart) 10:09 10:05 Rocephin IV 1 grams IV at calculated rate once; Given slow IV push per pharmacy pm1 instructions ordered. pm1 11:22 10:48 Rocephin IV 1 grams IV at calculated rate once; Given slow IV push per pharmacy pm1 instructions ordered. pm1
== END 2022-07-25 11:44 | disposition home or self-care (01) ==
LOC: ER 08:38
DX: J18.9 Pneumonia, unspecified organism (principal); Z20.822 Contact with and (suspected) exposure to COVID-19
CPT/HCPCS: 0240U; 71046; 93005; 96372; 99285; J1100; J2001; J7613

== ENCOUNTER 2022-10-05 20:47 | Emergency (ER) | payer OTHER ==
--- OUTSIDE RECORDS SUMMARY | 2022-10-05 20:52 | XMS REPORT | Clinical Summary ---
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 HYDROcodone-acetamin Take 1 tablet 60 tablet 0 09/10/2022 Active ophen (NORCO) 5 by mouth mg-325 mg per every 6 (six) tabletIndications: hours as Non-small cell lung needed for cancer <Right side>, moderate Neoplasm related pain. pain (acute) (chronic) clopidogrel (PLAVIX) Take 1 tablet 30 tablet 0 09/18/2022 Active 75 mg (75 mg) by tabletIndications: mouth daily. Non-small cell lung cancer <Right side> clopidogrel (Plavix) Take 1 tablet 60 tablet 0 09/19/2022 07/0 /20 Active 75 mg (75 mg) by 23 tabletIndications: mouth daily Non-small cell lung for 60 days. cancer <Right side>, Superior vena cava syndrome apixaban (Eliquis) 5 Take 1 tablet 60 tablet 10 09/19/2022 03/2 20 Active mg (5 mg) by 24 tabletIndications: mouth every Non-small cell lung 12 (twelve) cancer <Right side>, hours for 330 Stent in anterior days. descending branch of left coronary artery pantoprazole Take 1 tablet 30 tablet 1 09/25/2022 Ac tive (PROTONIX) 40 mg EC (40 mg) by tabletIndications: mouth every Non-small cell lung morning cancer <Right side> before breakfast. clopidogrel (PLAVIX) TAKE 1 TABLET 0 09/04/2022/0 08/05 Discontinued 75 mg tablet BY MOUTH IN 23 (Reor martha) THE MORNING dexAMETHasone TAKE 1 TABLET 0 09/04/2022 09/19/19 D iscontinued (DECADRON) 4 mg BY MOUTH IN 23 (D uplicate tablet THE MORNING order) enoxaparin (LOVENOX) INJECT 0.9 ML 0 09/05/20220 09/05 Discontinued 100 mg/1 mL UNDER THE 23 prefilled syringe SKIN EVERY 12 HOURS dexAMETHasone Take 1 tablet 18 tablet 2 09/15/2022 09/19/19 D iscontinued (DECADRON) 4 mg (4 mg) by 23 tabletIndications: mouth twice Non-small cell lung daily. On the cancer <Right side> day before and day after chemo ondansetron (ZOFRAN) Take 1 tablet 30 tablet 3 09/15/20220 08/05 Discontinued 8 mg (8 mg) by 23 tabletIndications: mouth every 8 Non-small cell lung (eight) hours cancer <Right side> as needed for nausea or vomiting. folic acid (FOLVITE) Take 1 tablet 30 tablet 2 09/15/20220 08/05 Discontinued 400 mcg (400 mcg) by 23 tabletIndications: mouth daily. Non-small cell lung cancer <Right side> pantoprazole Take 1 tablet 0 09/26/19 Dis continued (PROTONIX) 40 mg EC (40 mg) by 23 (Reorder) tablet mouth every morning before breakfast. ondansetron (ZOFRAN) Take 1 tablet 30 tablet 2 10/08/2022/0 10/05 Discontinued 8 mg (8 mg) by 23 tabletIndications: mouth every 8 Non-small cell lung (eight) hours cancer <Right side> as needed for nausea or vomiting. 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 Added automatically from request for inna koenig [id number] Cobalamin deficiency 07/15/2016 Anemia 06/27/2016 Chronic obstructive pulmonary disease 09/09/2014 Encounters Date Type Specialty Care Team Description 10/05/2022 Nurse Triage Rosa Wyatt PA 10/03/2022 Telephone Oncology Nicole Canales RN 09/25/2022 Infusion Infusion Services Mojgan Lopez MD Non-small cell lung cancer <Right side> (Primary Dx); Rosario Khanna Secondary an d unspecified malignant neoplasm of lymph nodes of head, face and neck CHELE Engle 09/25/2022 Follow-Up Thoracic Medicine Mojgan Lopez MD Non-small cell lung cancer <Right side> (Primary Dx); Secondary and u nspecified malignant neoplasm of lymph nodes of head, face and neck 09/25/2022 Travel 09/24/2022 Orders Only Thoracic Medicine Serafin Whitman-sm all cell Eloina, RN lung cancer <Right side> (Primary Dx) 09/24/2022 Orders Only Oncology Kaykay Hoyt, FINANCIAL SERVICES EDUCATION CONSULTANT 09/23/2022 Orders Only Head and Neck Medical Stewart Curry Non -small cell Oncology lung cancer <Right side> (Primary Dx) 09/20/2022 Orders Only Thoracic Medicine Serafin Whitman Non-sm all cell Eloina, RN lung cancer <Right side> (Primary Dx) 09/19/2022 Ancillary Procedure Radiology Kirit Escobar MD Non- small cell lung cancer <Right side> 09/19/2022 Telephone Oncology Kaykay Hoyt, FINANCIAL SERVICES EDUCATION CONSULTANT 09/19/2022 Orders Only Oncology Kaykay Hoyt, Superior ve na cava syndrome (Primary Dx); FINANCIAL SERVICES EDUCATION CONSULTANT Non-small cell lung cancer <Right side> 09/19/2022 Orders Only Oncology Papito Flores NP 09/19/2022 Travel 09/18/2022 Follow-Up Thoracic Medicine Mojgan Lopez MD Non-small cell lung cancer <Right side> (Primary Dx); Stent in anteri or descending branch of left coronary artery; Secondary and u nspecified malignant neoplasm of lymph nodes of head, face and neck 09/18/2022 Consult Radiation Oncology Kirit Escobar MD Non-s mall cell lung cancer <Right side> 09/18/2022 Documentation Radiation Oncology Kirit Escobar MD 09/18/2022 Orders Only Thoracic Medicine Mojgan Lopez MD 09/18/2022 Orders Only Radiation Oncology Kirit Escobar MD Non-s mall cell lung cancer <Right side> (Primary Dx) 09/18/2022 Travel 09/17/2022 Orders Only Oncology Papito Flores NP 09/16/2022 Anesthesia Event Radiology Buffy Serrano MD 09/16/2022 Hospital Encounter Radiology Mojgan Lopez MD Non-small cell Buffy Serrano, lung cancer MD <Unspecified Fang, Maddy, ENGINEERING RESEARCH MANAGER side> 09/16/2022 Orders Only Thoracic Surgery Britta Mckeon, FINANCIAL SERVICES EDUCATION CONSULTANT 09/16/2022 Travel 09/13/2022 Anesthesia Event Anesthesiology Paulette Hernandez, CHELE 09/13/2022 POEM Appointments Anesthesiology Mojgan Lopez MD 09/13/2022 Hospital Encounter Pulmonology Britta Mckeon Non-sma ll cell M, FINANCIAL SERVICES EDUCATION CONSULTANT lung cancer <Right side> 09/13/2022 Ancillary Procedure Radiology Mojgan Lopez MD Non-sma ll cell lung cancer <Unspecified side> 09/13/2022 Ancillary Procedure Radiology Mojgan Lopez MD Non-sma ll cell lung cancer <Unspecified side> 09/13/2022 Hospital Encounter Radiology Papito Flores NP Non-sm all cell lung cancer <Right side> 09/13/2022 Orders Only Thoracic Medicine Mojgan Lopez MD Non-small cell lung cancer <Unspecified side> (Primary Dx) 09/13/2022 Travel 09/09/2022 Ancillary Procedure Radiology Mojgan Lopez MD Cancer 09/09/2022 Ancillary Procedure Radiology Mojgan Lopez MD Cancer 09/09/2022 Ancillary Procedure Radiology Mojgan Lopez MD Cancer 09/09/2022 Ancillary Procedure Radiology Mojgan Lopez MD Cancer 09/09/2022 Ancillary Procedure Radiology Mojgan Lopez MD Cancer 09/09/2022 Ancillary Procedure Radiology Mojgan Lopez MD Cancer 09/09/2022 Ancillary Procedure Radiology Mojgan Lopez MD Cancer 09/09/2022 Ancillary Procedure Radiology Mojgan Lopez MD Cancer 09/09/2022 Office Visit Thoracic Medicine Mojgan Lopez MD Non-small cell lung cancer <Right side> (Primary Dx); Neoplasm relate d pain (acute) (chronic) 09/09/2022 Orders Only Thoracic Surgery Britta Mckeon Non-small cell M, FINANCIAL SERVICES EDUCATION CONSULTANT lung cancer <Right side> (Primary Dx) 09/09/2022 Travel 09/09/2022 Orders Only Radiology Beth Leon MD 09/09/2022 Orders Only Thoracic Medicine Mojgan Lopez MD Non-small cell lung cancer <Unspecified side> (Primary Dx) 09/05/2022 NPR Patient Access Mojgan Lopez MD Services 09/05/2022 Lab Requisition El Garcia MD Nawgiri, Jazmin Urena MD 09/05/2022 Travel after 10/05/2021 Surgical History Surgery Date Site/Laterality Comments LAPAROSCOPIC HYSTERECTOMY 2001 ROBOTIC ASSISTED CHOLYCYSTECTOMY 05/19/2016 - 05/18/2017 N/A Medical History Medical History Date Comments Cervical cancer 2001 Family History Medical History Relation Name Comments Emphysema Father Diabetes Mother Fibromyalgia Mother Hypertension Mother Kidney cancer Paternal Grandfather Alzheimer's disease Paternal Grandmother Relation Name Status Comments Father Mother Paternal Grandfather Paternal Grandmother Social History Tobacco Use Types Packs/Day Years Used Date Smoking Tobacco: Former Cigarettes 1.5 20 Quit : 08/09/2022 Smokeless Tobacco: Never Tobacco Cessation: Counseling Given: Not Answered Alcohol Use Standard Drinks/Week Comments Not Currently 0 (1 standard drink = 0.6 oz pure alcoho l) Sex Assigned at Date Recorded Not on file Job Start Date Occupation Industry Not on file Not on file Not on file COVID-19 Exposure Response Date Recorded In the last 10 days, have you been in contact with No / Unsu re 09/25/2022 9:27 AM CDT someone who was confirmed or suspected to have Coronavirus/COVID-19? Obstetrics History Last Filed Vital Signs Vital Sign Reading Time Taken Comments Blood Pressure 143/89 09/25/2022 11:18 AM CDT Pulse 102 09/25/2022 11:18 AM CDT Temperature 37 C (98.6 F) 09/25/2022 11:18 AM CDT Respiratory Rate 19 09/25/2022 11:18 AM CDT Oxygen Saturation 97% 09/19/2022 9:30 AM CDT Inhaled Oxygen Concentration - - Weight 87.3 kg (192 lb 7.4 oz) 09/25/2022 11:18 AM CDT Height 170.1 cm (5' 6.97") 09/25/2022 11:18 AM CDT Body Mass Index 30.17 09/25/2022 11:18 AM CDT Plan of Treatment Date Type Specialty Care Team Description 10/16/2022 Lab Lab Mojgan Lopez MD [address] [place] [address] 7703 (Kenan rk) 10/16/2022 Follow-Up Thoracic Medicine Mojgan Lopez MD [address] [place] [address] 7703 (Kenan rk) 10/16/2022 Infusion Infusion Services Mojgan Lopez MD [address] [place] [address] 7703 (Kenan rk) 11/06/2022 Lab Lab Mojgan Lopez MD [address] [place] [address] 7703 (Wo rk) 11/06/2022 Follow-Up Thoracic Medicine Mojgan Lopez MD [address] [place] [address] 7703 (Kenan rk) 11/06/2022 Infusion Infusion Services Mojgan Lopez MD [address] [place] [address] 7703 (Kenan rk) 11/27/2022 Lab Lab Mojgan Lopez MD [address] [place], [place] 7703 (Wo rk) 11/27/2022 Follow-Up Thoracic Medicine Mojgan Lopez MD [address] [place], [place] 7703 (Wo rk) 11/27/2022 Infusion Infusion Services Mojgan Lopez MD [address] [place], [place] 7703 (Kenan rk) Health Maintenance Due Date Last Done Comments COVID-19 Vaccination (#1) 04[birth year]06/1976 Medical Devices Implanted Type Area Outbound Sales Representative Device Identifier Shelf Exp iration Model / Serial Date / Lot Stent Stent Procedures Procedure Name Priority Date/Time Associated Comments Diagnosis LACTATE DEHYDROGENASE Routine 09/25/2022 10:41 Non-small cell Results for this AM CDT lung cancer <Right procedure are in side> the results section. HUMAN CHORIONIC Routine 09/25/2022 9:29 Non-small cell Results for this GONADOTROPIN, AM CDT lung cancer <Right procedur e are in QUALITATIVE, URINE side> the resul ts section. MANUAL DIFFERENTIAL Routine 09/25/2022 9:26 Non-small cell Res ults for this AM CDT lung cancer <Right procedure are in side> the results section. Results CBC Routine 09/25/2022 9:26 Non-small cell Results fo r this AM CDT lung cancer <Right procedure are in side> the results section. FRACTIONATED BILIRUBIN Routine 09/25/2022 9:26 Non-small cell Results for this AM CDT lung cancer <Right procedure are in side> the results section. TOTAL PROTEIN Routine 09/25/2022 9:26 Non-small cell Results f or this AM CDT lung cancer <Right procedure are in side> the results section. ASPARTATE Routine 09/25/2022 9:26 Non-small cell Results fo r this AMINOTRANSFERASE AM CDT lung cancer <Right proce dure are in side> the results section. ALANINE AMINOTRANSFERASE Routine 09/25/2022 9:26 Non-small coretta l Results for this AM CDT lung cancer <Right procedure are in side> the results section. ALKALINE PHOSPHATASE Routine 09/25/2022 9:26 Non-small cell Re sults for this AM CDT lung cancer <Right procedure are in side> the results section. CALCIUM LEVEL TOTAL Routine 09/25/2022 9:26 Non-small cell Res ults for this AM CDT lung cancer <Right procedure are in side> the results section. .GLOMERULAR FILTRATION Routine 09/25/2022 9:26 Non-small cell Results for this RATE AM CDT lung cancer <Right procedure are in side> the results section. SERUM CREATININE Routine 09/25/2022 9:26 Non-small cell Result s for this AM CDT lung cancer <Right procedure are in side> the results section. ELECTROLYTE PANEL Routine 09/25/2022 9:26 Non-small cell Resul ts for this AM CDT lung cancer <Right procedure are in side> the results section. BLOOD UREA NITROGEN Routine 09/25/2022 9:26 Non-small cell Res ults for this AM CDT lung cancer <Right procedure are in side> the results section. GLUCOSE LEVEL Routine 09/25/2022 9:26 Non-small cell Results f or this AM CDT lung cancer <Right procedure are in side> the results section. RESEARCH PROTOCOL Routine 09/25/2022 9:26 Non-small cell Resul ts for this [id number] AM CDT lung cancer <Right procedure are in side> the results section. PROTHROMBIN TIME Routine 09/25/2022 9:26 Non-small cell Result s for this AM CDT lung cancer <Right procedure are in side> the results section. APTT Routine 09/25/2022 9:26 Non-small cell Results fo r this AM CDT lung cancer <Right procedure are in side> the results section. COMPLETE BLOOD COUNT W/ Routine 09/25/2022 9:26 Non-small cell DIFFERENTIAL AM CDT lung cancer <Right side> URIC ACID Routine 09/25/2022 9:26 Non-small cell Results fo r this AM CDT lung cancer <Right procedure are in side> the results section. MAGNESIUM LEVEL Routine 09/25/2022 9:26 Non-small cell Results for this AM CDT lung cancer <Right procedure are in side> the results section. THYROID STIMULATING Routine 09/25/2022 9:26 Non-small cell Res ults for this HORMONE AM CDT lung cancer <Right procedure are in side> the results section. FREE THYROXINE Routine 09/25/2022 9:26 Non-small cell Results for this AM CDT lung cancer <Right procedure are in side> the results section. COMPREHENSIVE METABOLIC Routine 09/25/2022 9:26 Non-small cell PANEL AM CDT lung cancer <Right side> ALBUMIN LEVEL Routine 09/25/2022 9:26 Non-small cell Results f or this AM CDT lung cancer <Right procedure are in side> the results section. AP IHC PD-L1 MATERIAL Routine 09/19/2022 3:44 Non-small cell REQUEST PM CDT lung cancer <Right side> US FINE NEEDLE Routine 09/19/2022 9:55 Non-small cell Results for this ASPIRATION AM CDT lung cancer <Right procedure are in side> the results section. US HEAD NECK SOFT TISSUE Routine 09/19/2022 9:55 Non-small coretta l Results for this AM CDT lung cancer <Right procedure are in side> the results section. CYTOLOGY IMAGE-GUIDED Routine 09/19/2022 9:09 Non-small cell R esults for this FNA INTERPRETATION AM CDT lung cancer <Right pro cedure are in side> the results section. MRI BRAIN W WO CONTRAST Routine 09/16/2022 11:00 Non-small coretta l Results for this AM CDT lung cancer procedure are i n <Unspecified side> the resul ts section. SPIROMETRY W/DILATORS, Routine 09/13/2022 3:38 Non-small cell Results for this DLCO AND BODY PM CDT lung cancer <Right procedur e are in PLETHSMOGRAPHIC LUNG side> the res ults VOLUMES section. PETCT INITIAL TREATMENT Routine 09/13/2022 12:28 Non-small coretta l Results for this STRATEGY PM CDT lung cancer procedure are i n <Unspecified side> the resul ts section. CT CHEST W CONTRAST Routine 09/13/2022 9:42 Non-small cell Res ults for this AM CDT lung cancer <Right procedure are in side> the results section. AP IHC PD-L1 MATERIAL Routine 09/11/2022 4:29 Non-small cell REQUEST PM CDT lung cancer <Right side> NGS BLOOD CONTROL STAT 09/09/2022 12:17 Res ults for this PM CDT procedure are i n the results section. HP LB LIQUID BIOPSY STAT 09/09/2022 12:17 PANEL V1 INTERPRETATION PM CDT AND REPORT FRACTIONATED BILIRUBIN STAT 09/09/2022 12:17 Non-small cell Results for this PM CDT lung cancer procedure are i n <Unspecified side> the resul ts section. TOTAL PROTEIN STAT 09/09/2022 12:17 Non-small cell Results for this PM CDT lung cancer procedure are i n <Unspecified side> the resul ts section. ASPARTATE STAT 09/09/2022 12:17 Non-small cell Results f or this AMINOTRANSFERASE PM CDT lung cancer procedure a re in <Unspecified side> the resul ts section. ALANINE AMINOTRANSFERASE STAT 09/09/2022 12:17 Non-small ce ll Results for this PM CDT lung cancer procedure are i n <Unspecified side> the resul ts section. ALKALINE PHOSPHATASE STAT 09/09/2022 12:17 Non-small cell R esults for this PM CDT lung cancer procedure are i n <Unspecified side> the resul ts section. ALBUMIN LEVEL STAT 09/09/2022 12:17 Non-small cell Results for this PM CDT lung cancer procedure are i n <Unspecified side> the resul ts section. CALCIUM LEVEL TOTAL STAT 09/09/2022 12:17 Non-small cell Re sults for this PM CDT lung cancer procedure are i n <Unspecified side> the resul ts section. .GLOMERULAR FILTRATION STAT 09/09/2022 12:17 Non-small cell Results for this RATE PM CDT lung cancer procedure are i n <Unspecified side> the resul ts section. SERUM CREATININE STAT 09/09/2022 12:17 Non-small cell Resul ts for this PM CDT lung cancer procedure are i n <Unspecified side> the resul ts section. ELECTROLYTE PANEL STAT 09/09/2022 12:17 Non-small cell Resu lts for this PM CDT lung cancer procedure are i n <Unspecified side> the resul ts section. BLOOD UREA NITROGEN STAT 09/09/2022 12:17 Non-small cell Re sults for this PM CDT lung cancer procedure are i n <Unspecified side> the resul ts section. GLUCOSE LEVEL STAT 09/09/2022 12:17 Non-small cell Results for this PM CDT lung cancer procedure are i n <Unspecified side> the resul ts section. MANUAL DIFFERENTIAL STAT 09/09/2022 12:17 Non-small cell Re sults for this PM CDT lung cancer procedure are i n <Unspecified side> the resul ts section. Results CBC STAT 09/09/2022 12:17 Non-small cell Results f or this PM CDT lung cancer procedure are i n <Unspecified side> the resul ts section. HP LB ROS1 FUSION STAT 09/09/2022 12:17 Non-small cell Resu lts for this ANALYSIS COLLECTION, PM CDT lung cancer procedu re are in BLOOD <Unspecified side> the resul ts section. HP LB RET FUSION STAT 09/09/2022 12:17 Non-small cell Resul ts for this ANALYSIS COLLECTION, PM CDT lung cancer procedu re are in BLOOD <Unspecified side> the resul ts section. HP LB MET MUTATION STAT 09/09/2022 12:17 Non-small cell Res ults for this ANALYSIS COLLECTION, PM CDT lung cancer procedu re are in BLOOD <Unspecified side> the resul ts section. HP LB ERBB2 FULL GENE STAT 09/09/2022 12:17 Non-small cell Results for this MUTATION ANALYSIS PM CDT lung cancer procedure are in COLLECTION, BLOOD <Unspecified side> the results section. HP LB EML4/ALK FUSION STAT 09/09/2022 12:17 Non-small cell Results for this ANALYSIS COLLECTION, PM CDT lung cancer procedu re are in BLOOD <Unspecified side> the resul ts section. HP LB BRAF MUTATION STAT 09/09/2022 12:17 Non-small cell Re sults for this ANALYSIS COLLECTION, PM CDT lung cancer procedu re are in BLOOD <Unspecified side> the resul ts section. APTT STAT 09/09/2022 12:17 Non-small cell Results f or this PM CDT lung cancer procedure are i n <Unspecified side> the resul ts section. PROTHROMBIN TIME STAT 09/09/2022 12:17 Non-small cell Resul ts for this PM CDT lung cancer procedure are i n <Unspecified side> the resul ts section. LACTATE DEHYDROGENASE STAT 09/09/2022 12:17 Non-small cell Results for this PM CDT lung cancer procedure are i n <Unspecified side> the resul ts section. MAGNESIUM LEVEL STAT 09/09/2022 12:17 Non-small cell Result s for this PM CDT lung cancer procedure are i n <Unspecified side> the resul ts section. COMPREHENSIVE METABOLIC STAT 09/09/2022 12:17 Non-small coretta l PANEL PM CDT lung cancer <Unspecified side> COMPLETE BLOOD COUNT W/ STAT 09/09/2022 12:17 Non-small coretta l DIFFERENTIAL PM CDT lung cancer <Unspecified side> OSI CHEST Routine 08/23/2022 3:20 Cancer Results for this PM CDT procedure are i n the results section. OSI CATHETER PLACEMENT Routine 08/23/2022 3:20 Cancer Re sults for this STUDY PM CDT procedure are i n the results section. OSI CHEST Routine 08/21/2022 3:20 Cancer Results for this PM CDT procedure are i n the results section. PATHOLOGY OUTSIDE Routine 08/21/2022 Results fo r this INTERPRETATION procedure are in the results section. OSI CT ABDOMEN AND Routine 08/17/2022 3:19 Cancer Result s for this PELVIS PM CDT procedure are i n the results section. OSI CT CHEST Routine 08/15/2022 3:32 Cancer Results for this PM CDT procedure are i n the results section. OSI CT MAXILLOFACIAL Routine 08/15/2022 3:31 Cancer Resu lts for this AREA PM CDT procedure are i n the results section. OSI CT SFT TISS NECK Routine 08/15/2022 3:31 Cancer Resu lts for this PM CDT procedure are i n the results section. OSI CHEST Routine 08/15/2022 3:18 Cancer Results for this PM CDT procedure are i n the results section. after 10/05/2021 Results (ABNORMAL) LDH (09/25/2022 10:41 AM CDT)Only the most recent of2 resultswithin the time period is included. athologist Signature LDH 294 (H) 135 - 214 [place] U/L Comment: Results greater than 1651 U/L may not be reliable due to matrix effect with extended dilution as it exceeds the metal roaster's recommended limit. Caution should be exercised when interpreting such values and done in conjunction with clinical context. Testing performed at [facility], [address] [place] [id number] Specimen Anatomical Collection Method Collection Time Receive d Time (Source) Location / / Volume Laterality Blood 09/25/2022 10:41 09/25/2022 5:51 AM CDT PM CDT Mojgan Lopez MD LAB BLOOD ORDERABLES Performing Organization Address City/State/[place] [address] [place] [address] U HCG (09/25/2022 9:29 AM CDT) athologist Signature U beta hCG Ql Negative Negative [place] Comment: Very dilute urine specimens may cause fa lse negative results. Suggest repeat in 48 hours with a first morning voided urine or request quantitative serum beta HCG test. Testing performed at [facility], [address] [place], [place] [id number] Specimen Anatomical Collection Method Collection Time Receive d Time (Source) Location / / Volume Laterality Urine 09/25/2022 9:29 AM 3 9:29 CDT AM CDT Mojgan Lopez MD URINE ORDERABLES Performing Organization Address City/State/ZIP Code Phon e Number [place] [id number] [place] [address] Research Protocol [id number] (09/25/2022 9:26 AM CDT) athologist Signature Research Prot [id number] [facility] Specimen Anatomical Collection Method Collection Time Receive d Time (Source) Location / / Volume Laterality Blood 09/25/2022 9:26 AM 3 2:09 CDT PM CDT Mojgan Lopez MD RESEARCH LAB Z CODES Performing Organization Address City/[facility]/ZIP Code Phon e Number [facility] Unless otherwise noted, [place] [address] [place] all lab tests performed by: Division of Pathology and Laboratory Medicine [address] [place], [place] [address]luciano MoraPlush .Serum Creatinine (09/25/2022 9:26 AM CDT)Only the most recent of2 resultswithin the time period is included. athologist [facility] Creatinine 0.62 0.51 - 0.95 [place] mg/dL Comment: [facility], [address] [place] [id number] Specimen Anatomical Collection Method Collection Time Receive d Time (Source) Location / / Volume Laterality Blood 09/25/2022 9:26 AM 9:26 CDT AM CDT Mojgan Lopez MD LAB BLOOD ORDERABLES Performing Organization Address City/State/ZIP Code Phon e Number [place] [address] (ABNORMAL) .CBC (09/25/2022 9:26 AM CDT)Only the most recent of2 resultswithin the time period is included. athologist Signature WBC 10.4 4.0 - 11.0 [place] K/uL Comment: All components of the CBC perfo rmed at [facility], [address] [place] [address] RBC 3.85 (L) 4.00 - 5.50 M/uL [place] Comment: As part of CBC testing performe d at [facility], [address] [place] [address] Hgb 11.6 (L) 12.0 - 16.0 gm/dL [place] Comment: As part of CBC or as an individ ual orderable testing performed at [facility], [address] [place] [address] Hct 34.9 (L) 37.0 - 47.0 % [place] Comment: As part of CBC or as an individ ual orderable testing performed at [facility], [address] [place] [address] MCV 91 82 - 98 fL [place] Comment: As part of CBC testing performe d at [facility], [address] [place] [address] MCH 30.1 27.0 - 31.0 pg [place] Comment: As part of CBC testing performe d at [facility], [address] [place] [address] MCHC 33.2 31.0 - 36.0 gm/dL [place] Comment: As part of CBC testing performe d at [facility], [address] [place] [address] RDW-SD 47.3 (H) 35.1 - 46.3 fL [place] Comment: As part of CBC testing performe d at [facility], [address] [place] [address] RDW-CV 14.5 12.0 - 15.5 % [place] Comment: As part of CBC testing performe d at [facility], [address] [place] [address] Platelet count 338 140 - 440 K/uL [place] Comment: As part of CBC or as an individ ual orderable testing performed at [facility], [address] [place] [address] MPV 9.3 4.0 - 10.4 fL [place] Comment: As part of CBC testing performe d at [facility], [address] [place] [address] Specimen Anatomical Collection Method Collection Time Receive d Time (Source) Location / / Volume Laterality Blood 09/25/2022 9:26 AM 9:26 CDT AM CDT Mojgan Lopez MD LAB BLOOD ORDERABLES Performing Organization Address City/State/ZIP Code Phon e Number PETR BLOOM MD [place] [id number] [place] [address] Glomerular Filtration Rate (09/25/2022 9:26 AM CDT)Only the most recent of2 resultswithin the time period is included. P athologist Signature eGFR 110 >=60 [place] mL/min/1.73 sq. m Comment: The eGFRcr is calculated with the 2020 KD-EPI creatinine equation using creatinine, patient's age, and sex for adults 18 years of age and older. Other factors, especially muscle mass, may affect accuracy and need to be considered. According to the Kidney Disease: Improvi ng Global Outcomes (KDIGO) CKD Work Group 2012 Clinical Practice Guideline, chronic kidney disease (CKD) is defined as the abnormalities of kidney structure or function, present for more than 3 months, with implications for health. CKD should be c lassified by cause, GFR category, and albuminuria category. KDIGO guidelines provide the following GFR categories Stage Description GFR mL/min/1.73 m2 G1* Normal or high >= 90 G2* Mildly decreased 60-89 G3a Mildly to moderately decreased 45-59 G3b Moderately to severely decreased 30- 44 G4 Severely decreased 15-29 G5 Kidney failure <15 *In the absence of evidence of kidney da mage, neither G1 nor G2 fulfill criteria for CKD. Testing performed at [facility], [address] [place], [place] [address] Specimen Anatomical Collection Method Collection Time Receive d Time (Source) Location / / Volume Laterality Blood 09/25/2022 9:26 AM 3 9:26 CDT AM CDT Mojgan Lopez MD LAB BLOOD ORDERABLES Performing Organization Address [facility] [place] [address] [place] [address] Fractionated Bilirubin (09/25/2022 9:26 AM CDT)Only the most recent of2 results within the time period is included. athologist Signature Bili Total 0.3 <=1.2 mg/dL [place] Comment: Indocyanine Green (ICG) may cause falsel y elevated bilirubin results. Total and direct bilirubin must not be measured from samples containing indocyanine green. False elevation of total bilirubin can b e seen in patients with IgG concentrations above 28 g/L. Testing performed at [facility], [address] [place] [address] Bili Direct <0.2 <=0.3 mg/dL [place] Comment: Indocyanine Green (ICG) may cause falsel y elevated bilirubin results. Total and direct bilirubin must not be measured from samples containing indocyanine green. Testing performed at [facility], [address] [place], [place] [address] Bili Indirect See Note 0.0 - 0.9 mg/dL [place] Comment: Unable to calculate Indirect Bilirubin r esult due to some parameters are outside reportable range Testing performed at [facility], [address] [place] [address] Specimen Anatomical Collection Method Collection Time Receive d Time (Source) Location / / Volume Laterality Blood 09/25/2022 9:26 AM 3 9:26 CDT AM CDT Mojgan Lopez MD LAB BLOOD ORDERABLES Performing Organization Address [facility] [place] [address] [place] [address] aPTT (09/25/2022 9:26 AM CDT)Only the most recent of2 resultswithin the time period is included. athologist Signature aPTT 29.6 22.8 - 34.2 [place] second(s) Comment: Testing performed at [facility], [address] [place] [address] Specimen Anatomical Collection Method Collection Time Receive d Time (Source) Location / / Volume Laterality Blood 09/25/2022 9:26 AM 3 9:26 CDT AM CDT Narrative [place] - 09/25/2022 10:10 AM CDT This lab cannot be scheduled at the foll owing locations due to collection/proccessing restrictions: [facility] and [facility]. Mojgan Lopez MD LAB BLOOD ORDERABLES Performing Organization Address City/State/ZIP Code Phon e Number [address] (ABNORMAL) Differential (09/25/2022 9:26 AM CDT)Only the most recent of2 results within the time period is included. athologist Signature Neutrophil % 79.4 (H) 42.0 - [place] 66.0 % Comment: All components of the Different ial performed at [facility], [address] [place] [address] Lymphocyte % 11.8 (L) 24.0 - 44.0 % [place] Comment: As part of Differential, testin g performed at [facility], [address] [place] [address] Monocyte % 8.7 (H) 2.0 - 7.0 % [place] [facility] Comment: As part of Differential, testin g performed at [facility], [address] [place] [address] Eosinophil % 0.0 (L) 1.0 - 4.0 % [place] [facility] Comment: As part of Differential, testin g performed at [facility], [address] [place] [address] Basophil % 0.1 0.0 - 1.0 % [place] Comment: As part of Differential, testin g performed at [facility], [address] [place] [address] Neutrophil Abs 8.24 (H) 1.70 - 7.30 K/uL [place] Comment: As part of Differential, testin g performed at [facility], [address] [place] [address] Lymphocyte Abs 1.22 1.00 - 4.80 K/uL [place] Comment: As part of Differential, testin g performed at [facility], [address] [place] [address] Monocyte Abs 0.90 (H) 0.08 - 0.70 K/uL [place] Comment: As part of Differential, testin g performed at [facility], [address] [place] [address] Eosinophil Abs 0.00 (L) 0.04 - 0.40 K/uL [place] Comment: As part of Differential, testin g performed at [facility], [address] [place] [address] Basophil Abs 0.01 0.00 - 0.10 K/uL [place] Comment: As part of Differential, testin g performed at [facility], [address] [place] [address] Specimen Anatomical Collection Method Collection Time Receive d Time (Source) Location / / Volume Laterality Blood 09/25/2022 9:26 AM 9:26 CDT AM CDT Mojgan Lopez MD LAB BLOOD ORDERABLES Performing Organization Address City/State/ZIP Code Phon e Number [address] (ABNORMAL) Prothrombin Time (09/25/2022 9:26 AM CDT)Only the most recent of2 resultswithin the time period is included. athologist Signature PT 15.6 (H) 11.9 - 14.1 [place] second(s) Comment: Repeated and verified Testing performed at [facility], [address] [place] [address] INR 1.29 (H) 0.89 - 1.10 [place] Comment: Testing performed at [facility], [address] [place] [address] Specimen Anatomical Collection Method Collection Time Receive d Time (Source) Location / / Volume Laterality Blood 09/25/2022 9:26 AM 3 CDT 9:26 AM CDT Narrative [place] - 09/25/2022 10:16 AM CDT This lab cannot be scheduled at the [facility] locations due to collection/proccessing restrictions: [facility] and [facility]. Mojgan Lopez MD LAB BLOOD ORDERABLES Performing Organization Address City/[facility] Phon e Number [address] Uric Acid (09/25/2022 9:26 AM CDT) P athologist Signature Uric Acid 4.7 2.4 - 5.7 [place] mg/dL Comment: Testing performed at [facility], [address] [place] [address] Specimen Anatomical Collection Method Collection Time Receive d Time (Source) Location / / Volume Laterality Blood 09/25/2022 9:26 AM 3 9:26 CDT AM CDT Mojgan Lopez MD LAB BLOOD ORDERABLES Performing Organization Address City/[facility] Code Phon e Number [address] BUN (09/25/2022 9:26 AM CDT)Only the most recent of2 resultswithin the time period is included. P athologist Signature BUN 18 6 - 23 mg/dL [place] Comment: Testing performed at [facility], [address] [place] [address] Specimen Anatomical Collection Method Collection Time Receive d Time (Source) Location / / Volume Laterality Blood 09/25/2022 9:26 AM 3 9:26 CDT AM CDT Mojgan Lopez MD LAB BLOOD ORDERABLES Performing Organization Address City/[facility]/[place] [address] [place] [address] ALT (09/25/2022 9:26 AM CDT)Only the most recent of2 resultswithin the time period is included. P athologist Signature ALT 31 <=33 U/L [place] Comment: Testing performed at [facility], [address] [place] [address] Specimen Anatomical Collection Method Collection Time Receive d Time (Source) Location / / Volume Laterality Blood 09/25/2022 9:26 AM 3 9:26 CDT AM CDT Mojgan Lopez MD LAB BLOOD ORDERABLES Performing Organization Address [facility] Phon e Number [address] Aspartate Aminotransferase (09/25/2022 9:26 AM CDT)Only the most recent of2 resultswithin the time period is included. athologist Signature AST 16 <=32 U/L [place] Comment: Testing performed at [facility], [address] [place], [place] [address] Specimen Anatomical Collection Method Collection Time Receive d Time (Source) Location / / Volume Laterality Blood 09/25/2022 9:26 AM 3 9:26 CDT AM CDT Mojgan Lopez MD LAB BLOOD ORDERABLES Performing Organization Address [facility] Phon e Number [place] [id number] [place] [address] TSH (09/25/2022 9:26 AM CDT) athologist Signature TSH 0.80 0.27 - 4.20 [place] mcunit/mL Comment: Testing performed at [facility], [address] [place] [address] Specimen Anatomical Collection Method Collection Time Receive d Time (Source) Location / / Volume Laterality Blood 09/25/2022 9:26 AM 3 9:26 CDT AM CDT Mojgan Lopez MD LAB BLOOD ORDERABLES Performing Organization Address City/[facility]/ZIP Code Phon e Number [address] Free T4 (09/25/2022 9:26 AM CDT) athologist Signature T4 Free 1.10 0.93 - 1.70 [place] ng/dL Comment: Testing performed at [facility], [address] [place] [address] Specimen Anatomical Collection Method Collection Time Receive d Time (Source) Location / / Volume Laterality Blood 09/25/2022 9:26 AM 9:26 CDT AM CDT Mojgan Lopez MD LAB BLOOD ORDERABLES Performing Organization Address City/[facility]/ZIP Code Phon e Number [address] Total Protein (09/25/2022 9:26 AM CDT)Only the most recent of2 resultswithin the time period is included. athologist Signature Total Protein 8.0 6.4 - 8.3 [place] [facility] g/dL Comment: Testing performed at [facility], [address] [place] [address] Specimen Anatomical Collection Method Collection Time Receive d Time (Source) Location / / Volume Laterality Blood 09/25/2022 9:26 AM 3 9:26 CDT AM CDT Mojgan Lopez MD LAB BLOOD ORDERABLES Performing Organization Address City/[facility]/ZIP Code Phon e Number [address] (ABNORMAL) Alkaline Phosphatase (09/25/2022 9:26 AM CDT)Only the most recent of2 resultswithin the time period is included. athologist Signature Alk Phos 158 (H) 35 - 104 [place] U/L Comment: Testing performed at [facility], [address] [place] [address] Specimen Anatomical Collection Method Collection Time Receive d Time (Source) Location / / Volume Laterality Blood 09/25/2022 9:26 AM 3 9:26 CDT AM CDT Mojgan Lopez MD LAB BLOOD ORDERABLES Performing Organization Address City/[facility] Code Phon e Number PETR BLOOM MD [address] Magnesium Level (09/25/2022 9:26 AM CDT)Only the most recent of2 resultswithin the time period is included. athologist Signature Magnesium 2.0 1.6 - 2.6 [place] [facility] mg/dL Comment: [facility], [address] [place] [address] Specimen Anatomical Collection Method Collection Time Receive d Time (Source) Location / / Volume Laterality Blood 09/25/2022 9:26 AM 3 9:26 CDT AM CDT Mojgan Lopez MD LAB BLOOD ORDERABLES Performing Organization Address [facility] Phon e Number [place]R [facility] [address] (ABNORMAL) Glucose Level (09/25/2022 9:26 AM CDT)Only the most recent of2 resultswithin the time period is included. athologist Signature Glucose Level 140 (H) 70 - 99 [place] mg/dL Comment: Effective 12/13/15, the glucose reference intervals have been updated based on [place] [employer] guidelines (Standards of Medical Care in Diabetes 2016. Diabetes Care 2016; 39: S13-S22). Fasting blood glucose: Normal: 70-99 mg/dL Impaired fasting glucose (increased risk for diabetes or pre-diabetes): 100- 125 mg/dL Diabetes mellitus: >/=126 mg/dL Random blood glucose: Normal: 70-199 mg/dL Note: Random glucose >100 mg/dL is assoc iated with increased risk for diabetes [facility] [address] [place] [address] Specimen Anatomical Collection Method Collection Time Receive d Time (Source) Location / / Volume Laterality Blood 09/25/2022 9:26 AM 3 9:26 CDT AM CDT Mojgan Lopez MD LAB BLOOD ORDERABLES Performing Organization Address City/State/ZIP Code Phon e Number [place] [id number] [place] [address] Calcium Level (09/25/2022 9:26 AM CDT)Only the most recent of2 resultswithin the time period is included. athologist Signature Calcium Lvl 10.0 8.4 - 10.2 [place] mg/dL Comment: Testing performed at [facility], [address] [place] [address] Specimen Anatomical Collection Method Collection Time Receive d Time (Source) Location / / Volume Laterality Blood 09/25/2022 9:26 AM 3 9:26 CDT AM CDT Mojgan Lopez MD LAB BLOOD ORDERABLES Performing Organization Address City/[facility]/ZIP Code Phon e Number [place] [id number] [place] [address] Albumin Level (09/25/2022 9:26 AM CDT)Only the most recent of2 resultswithin the time period is included. athologist Signature Albumin Lvl 4.3 3.5 - 5.2 [place] gm/dL Comment: Testing performed at [facility], [address] [place], [place] [address] Specimen Anatomical Collection Method Collection Time Receive d Time (Source) Location / / Volume Laterality Blood 09/25/2022 9:26 AM 9:26 CDT AM CDT Mojgan Lopez MD LAB BLOOD ORDERABLES Performing Organization Address City/[facility]/ZIP Code Phon e Number [place] [id number] [place] [address] Electrolyte Panel (09/25/2022 9:26 AM CDT)Only the most recent of2 resultswithin the time period is included. athologist Signature Sodium Lvl 137 136 - 145 [place] mEq/L Comment: Testing performed at [facility], [address] [place], [place] [address] Potassium Lvl 3.6 3.5 - 5.1 mEq/L [place] Comment: Testing performed at [facility], [address] [place] [address] Chloride 102 98 - 107 mEq/L [place] Comment: Testing performed at [facility], [address] [place] [id number] CO2 22 22 - 29 mEq/L [place] Comment: Testing performed at [facility], [address] [place] [id number] Anion Gap 13 4 - 14 mEq/L [place] Comment: Testing performed at [facility], [address] [place], [place] [address] Specimen Anatomical Collection Method Collection Time Receive d Time (Source) Location / / Volume Laterality Blood 09/25/2022 9:26 AM 9:26 CDT AM CDT Mojgan Lopez MD LAB BLOOD ORDERABLES Performing Organization Address City/State/ZIP Code Phon e Number [address] IHC PD-L1 Material Request (09/19/2022 3:44 PM CDT)Only the most recent of2 resultswithin the time period is included. Specimen Anatomical Collection Method Collection Time Receive d Time (Source) Location / / Volume Laterality Tissue 09/19/2022 3:44 PM 3:44 CDT PM CDT Mojgan Lopez MD, MDA IP AP BIOMARKERS Performing Organization Address City/State/ZIP Code Phon e Number [facility] [place] [address] [address] US Fine Needle Aspiration (09/19/2022 9:55 AM CDT) Anatomical Region Laterality Modality Ultrasound Specimen (Source) Anatomical Collection Method Collection Time Re ceived Time Location / / Volume Laterality 09/19/2022 8:27 AM CDT Impressions 09/19/2022 12:03 PM CDT 1. Right mid and inferior neck cervical adenopathy with ultrasonographic features concerning for metastasis. The larger 2.4 cm right mid neck lymph node was targeted for biopsy. Technically successful percutaneous ultrasound-guided fine nee dle aspiration with immediate cytologic assessment concerning for metastasis. Final cytologic report is pending to be followed. 2. Subcentimeter left supraclavicular lymph nodes are also suspicious for metastatic adenopathy. Patient opted out from the biopsy of the FDG avid lymph node after discussion of the risks. Narrative 09/19/2022 12:03 PM CDT FULL RESULT: Examination: US HEAD NECK SOFT TISSUE, U S FINE NEEDLE ASPIRATION, 09/19/2022 9:55 AM Clinical History: Non-small cell lung cancer for evaluation of cervical adenopathy. Indication: Abnormal Lymph Node, Biopsy Comparison: PET/CT from 09/13/2022 Technique: Grayscale and color Doppler ultrasound of the neck was performed. Subsequently, an ultrasound-guided fine needle aspiration was performed, as described in detail below. Findings: Right neck: A mildly enlarged lymph node measuring 1.2 x 0.7 x 0.7 cm is seen within right inferior neck with asymmetrical cortical bulge. Another enlarged lymph node measuring 1. 2 x 2.4 x 0.8 cm is seen within right mid neck with asymmetrical cortical bulge. This lymph node was selected for FNA. Left neck: Two subcentimeter suspicious looking lymph nodes are seen in the left supraclavicular region measuring 0.7 x 0.6 x 0.3 cm and 0.4 x 0.7 x 0.7 cm respectively. The latter lymph node correspond s to the FDG avid lymph node seen on the recent PET/CT from 09/05/2022. Given its small in size, deeper location and close proximity with the blood vessels, it was deemed to be a difficult biopsy. Upon explaining the procedure to the patient, the patient opted out of the biopsy given the risks. ULTRASOUND-GUIDED FINE NEEDLE ASPIRATION : The procedure(s) and associated risks, b enefits, and alternatives were discussed with the patient, who agreed to proceed and signed an informed consent form. A safety timeout was done to verify the patient's identity, review any allergies, and confirm the side and site of the procedure. The right neck was cleansed with alcohol . 1% Xylocaine was used for local anesthesia. Fine-needle aspiration of the 2.4 cm r ight mid neck lymph node was performed using a 20-gauge needle under sonographic guidance. 2 passes were made. Immediate cytologic assessment: Adequate cellularity Preliminary cytology result is concernin g for metastasis and final results are pending. Estimated Blood Loss: None. Specimens removed: No Immediate Complications:None. The sandy ent tolerated the procedure well. Disposition: The post-biopsy instruction s were reviewed with the patient. The patient was discharged from Neurointerventional Ultrasound in stable in condition. Procedure Note Baljinder Cornejo MD - 09/19/2022Form atting of this note might be different from the original. FULL RESULT: Examination: US HEAD NECK SOFT TISSUE, U S FINE NEEDLE ASPIRATION, 09/19/2022 9:55 AM Clinical History: Non-small cell lung ca ncer for evaluation of cervical adenopathy. Indication: Abnormal Lymph Node, Biopsy Comparison: PET/CT from 09/13/2022 Technique: Grayscale and color Doppler u ltrasound of the neck was performed. Subsequently, an ultrasound-guided fine needle aspiration was performed, as described in detail below. Findings: Right neck: A mildly enlarged lymph node measuring 1.2 x 0.7 x 0.7 cm is seen within right inferior neck with asymmetrical cortical bulge. Another enlarged lymph node measuring 1. 2 x 2.4 x 0.8 cm is seen within right mid neck with asymmetrical cortical bulge. This lymph node was selected for FNA. Left neck: Two subcentimeter suspicious looking lymph nodes are seen in the left supraclavicular region measuring 0.7 x 0.6 x 0.3 cm and 0.4 x 0.7 x 0.7 cm respectively. The latter lymph node corresponds to the FDG avid lymph node seen on the recent PET/CT fro m 09/05/2022. Given its small in size, deeper location and close proximity with the blood vessels, it was deemed to be a difficult biopsy. Upon explaining the procedure to the patient, the patient opted out of the bi opsy given the risks. ULTRASOUND-GUIDED FINE NEEDLE ASPIRATION : The procedure(s) and associated risks, b enefits, and alternatives were discussed with the patient, who agreed to proceed and signed an informed consent form. A safety timeout was done to verify the patient's identity, review any allergies, and confirm the side and site of the procedure. The right neck was cleansed with alcohol . 1% Xylocaine was used for local anesthesia. Fine-needle aspiration of the 2.4 cm rig ht mid neck lymph node was performed using a 20-gauge needle under sonographic guidance. 2 passes were made. Immediate cytologic assessment: Adequate cellularity Preliminary cytology result is concernin g for metastasis and final results are pending. Estimated Blood Loss: None. Specimens removed: No Immediate Complications:None. The sandy ent tolerated the procedure well. Disposition: The post-biopsy instruction s were reviewed with the patient. The patient was discharged from Neurointerventional Ultrasound in stable in condition. IMPRESSION: 1. Right mid and inferior neck cervical adenopathy with ultrasonographic features concerning for metastasis. The larger 2.4 cm right mid neck lymph node was targeted for biopsy. Technically successful percutaneous ultrasound-guided fine needle aspiration with immediate cytologic assessment concerning for metastasis. Final cytologic report is pending to be followed. 2. Subcentimeter left supraclavicular ly mph nodes are also suspicious for metastatic adenopathy. Patient opted out from the biopsy of the FDG avid lymph node after discussion of the risks. Kirit Escobar MD IMG US ORDERABLES US HEAD NECK SOFT TISSUE (09/19/2022 9:55 AM CDT) Anatomical Region Laterality Modality Head, Neck Ultrasound Specimen (Source) Anatomical Collection Method Collection Time Re ceived Time Location / / Volume Laterality 09/19/2022 8:27 AM CDT Impressions 09/19/2022 12:03 PM CDT 1. Right mid and inferior neck cervical adenopathy with ultrasonographic features concerning for metastasis. The larger 2.4 cm right mid neck lymph node was targeted for biopsy. Technically successful percutaneous ultrasound-guided fine nee dle aspiration with immediate cytologic assessment concerning for metastasis. Final cytologic report is pending to be followed. 2. Subcentimeter left supraclavicular lymph nodes are also suspicious for metastatic adenopathy. Patient opted out from the biopsy of the FDG avid lymph node after discussion of the risks. Narrative 09/19/2022 12:03 PM CDT FULL RESULT: Examination: US HEAD NECK SOFT TISSUE, U S FINE NEEDLE ASPIRATION, 09/19/2022 9:55 AM Clinical History: Non-small cell lung cancer for evaluation of cervical adenopathy. Indication: Abnormal Lymph Node, Biopsy Comparison: PET/CT from 09/13/2022 Technique: Grayscale and color Doppler ultrasound of the neck was performed. Subsequently, an ultrasound-guided fine needle aspiration was performed, as described in detail below. Findings: Right neck: A mildly enlarged lymph node measuring 1.2 x 0.7 x 0.7 cm is seen within right inferior neck with asymmetrical cortical bulge. Another enlarged lymph node measuring 1. 2 x 2.4 x 0.8 cm is seen within right mid neck with asymmetrical cortical bulge. This lymph node was selected for FNA. Left neck: Two subcentimeter suspicious looking lymph nodes are seen in the left supraclavicular region measuring 0.7 x 0.6 x 0.3 cm and 0.4 x 0.7 x 0.7 cm respectively. The latter lymph node correspond s to the FDG avid lymph node seen on the recent PET/CT from 09/05/2022. Given its small in size, deeper location and close proximity with the blood vessels, it was deemed to be a difficult biopsy. Upon explaining the procedure to the patient, the patient opted out of the biopsy given the risks. ULTRASOUND-GUIDED FINE NEEDLE ASPIRATION : The procedure(s) and associated risks, b enefits, and alternatives were discussed with the patient, who agreed to proceed and signed an informed consent form. A safety timeout was done to verify the patient's identity, review any allergies, and confirm the side and site of the procedure. The right neck was cleansed with alcohol . 1% Xylocaine was used for local anesthesia. Fine-needle aspiration of the 2.4 cm r ight mid neck lymph node was performed using a 20-gauge needle under sonographic guidance. 2 passes were made. Immediate cytologic assessment: Adequate cellularity Preliminary cytology result is concernin g for metastasis and final results are pending. Estimated Blood Loss: None. Specimens removed: No Immediate Complications:None. The sandy ent tolerated the procedure well. Disposition: The post-biopsy instruction s were reviewed with the patient. The patient was discharged from Neurointerventional Ultrasound in stable in condition. Procedure Note Baljinder Cornejo MD - 09/19/2022Form atting of this note might be different from the original. FULL RESULT: Examination: US HEAD NECK SOFT TISSUE, U S FINE NEEDLE ASPIRATION, 09/19/2022 9:55 AM Clinical History: Non-small cell lung ca ncer for evaluation of cervical adenopathy. Indication: Abnormal Lymph Node, Biopsy Comparison: PET/CT from 09/13/2022 Technique: Grayscale and color Doppler u ltrasound of the neck was performed. Subsequently, an ultrasound-guided fine needle aspiration was performed, as described in detail below. Findings: Right neck: A mildly enlarged lymph node measuring 1.2 x 0.7 x 0.7 cm is seen within right inferior neck with asymmetrical cortical bulge. Another enlarged lymph node measuring 1. 2 x 2.4 x 0.8 cm is seen within right mid neck with asymmetrical cortical bulge. This lymph node was selected for FNA. Left neck: Two subcentimeter suspicious looking lymph nodes are seen in the left supraclavicular region measuring 0.7 x 0.6 x 0.3 cm and 0.4 x 0.7 x 0.7 cm respectively. The latter lymph node corresponds to the FDG avid lymph node seen on the recent PET/CT fro m 09/05/2022. Given its small in size, deeper location and close proximity with the blood vessels, it was deemed to be a difficult biopsy. Upon explaining the procedure to the patient, the patient opted out of the bi opsy given the risks. ULTRASOUND-GUIDED FINE NEEDLE ASPIRATION : The procedure(s) and associated risks, b enefits, and alternatives were discussed with the patient, who agreed to proceed and signed an informed consent form. A safety timeout was done to verify the patient's identity, review any allergies, and confirm the side and site of the procedure. The right neck was cleansed with alcohol . 1% Xylocaine was used for local anesthesia. Fine-needle aspiration of the 2.4 cm rig ht mid neck lymph node was performed using a 20-gauge needle under sonographic guidance. 2 passes were made. Immediate cytologic assessment: Adequate cellularity Preliminary cytology result is concernin g for metastasis and final results are pending. Estimated Blood Loss: None. Specimens removed: No Immediate Complications:None. The sandy ent tolerated the procedure well. Disposition: The post-biopsy instruction s were reviewed with the patient. The patient was discharged from Neurointerventional Ultrasound in stable in condition. IMPRESSION: 1. Right mid and inferior neck cervical adenopathy with ultrasonographic features concerning for metastasis. The larger 2.4 cm right mid neck lymph node was targeted for biopsy. Technically successful percutaneous ultrasound-guided fine needle aspiration with immediate cytologic assessment concerning for metastasis. Final cytologic report is pending to be followed. 2. Subcentimeter left supraclavicular ly mph nodes are also suspicious for metastatic adenopathy. Patient opted out from the biopsy of the FDG avid lymph node after discussion of the risks. Kirit Escobar MD IM US ORDERABLES (ABNORMAL) Cytology Image-Guided FNA Interpretation (09/19/2022 9:09 AM CDT) Component Value Ref Test Analysis Performed Pathologis t Range Method Time At Signature Gross Specimens procured: 09/23/2022 [facility] Description 2 Diff Quik; 6 Pap Stain Slides 8:53 A M 10 ml, slightly cloudy bloody fluid in RPMI CDT 1 Cell Block Date/Time Placed in Formalin: 09/19/22 @ 10:03 AM Size: 2.4 cm Immediate assessment for specimen adequacy was made x1 by Dr Randy Perla. Immediate Adequate 09/23/2022 [facility] Assessment cellularity, 8:53 AM favor malignant CDT Major MALIGNANT (A) 09/23/2022 [facility] Ruth ctronically Classification 8:53 AM livan d by Heath Perla MD on 09/23/2022 a t 8:53 AM Diagnosis Lymph node, right middle neck, fine needle aspiration: 09/23/2022 [facility] Electronically 8:53 AM signed by Heath SPARSE MALIGNANT CELLS, CONS ISTENT WITH METASTATIC ADENOCARCINOMA (see comment) BRITTA Perla MD on 09/23/2022 a t 8:53 AM Comment The cell block preparation w as contributory toward making the above diagnosis, but containing limited amount of tumor cells. The material is not adequate for molecular test. 09/23/2022 [facility] 8:53 AM PD-L1 (Clone 22C3, Dako Phar mDx) Tumoral Proportion Score (TPS): negative. Please note, the cellularity of tumor cells is very limited in this specimen (<50). Repeat testing is recommended if other specimen is available. CDT Assay Information: This assa y is manufactured by [employer] and uses a monoclonal anti-PD-L1, clone [id number]. It is performed on formalin-fixed paraffin- embedded tissue using an [employer] Dako autostainer a nd polymer based detection k it, as specified by the metal roaster. It is approved for use as a director of parks and recreation diagnostic assay for specific therapies on certain tumor types. Interpretation guidelines vary. Fo r tumoral percentage score ( TPS), the percentage of tumoral membranous labeling of any intensity is assessed. Please refer to the intended therapy package insert for appropriate use of results. Performa nce characteristics on other tissue types such decalcified specimens and on non-approved tumor types and therapies cannot be guaranteed. Retained/Biomark SR: 8 S, 2 CB, 1 IP 09/23/2022 [facility] er Testing 8:53 AM Biomarker Testing: CDT MDRedd Cell Block: <50 ([facility] only) MAUREEN Pap: No MDL DQ: No FISH DQ: No Informational Some tests 09/23/2022 [facility] Points reported here may 8:53 AM have been CDT developed and performance characteristics determined by [facility]. These tests have not been specifically cleared or approved by the U.S. Food and Drug Administration. Specimen Anatomical Collection Method Collection Time Receive d Time (Source) Location / / Volume Laterality Fine Needle Asp 09/19/2022 9:09 AM 2022 9:26 (Lymph Node(s), CDT AM CDT Right Middle, Neck) Kirit Escobar MD LAB CYTOLOGY ORDERABLES Performing Organization Address City/State/ZIP Code Phon e Number [facility] [place] [id number] [facility] MRI Brain with and without Contrast (09/16/2022 11:00 AM CDT) Anatomical Region Laterality Modality Head Magnetic Resonance Specimen (Source) Anatomical Collection Method Collection Time Re ceived Time Location / / Volume Laterality 09/16/2022 12:35 PM CDT Impressions 09/16/2022 2:23 PM CDT No definite intracranial metastasis. Questionable punctate foci of enhancement in the internal auditory canals are favored artifactual and have been annotated for close follow-up. Narrative 09/16/2022 2:23 PM CDT FULL RESULT: EXAMINATION: MRI BRAIN W WO CONTRAST on 09/16/2022 11:00 AM CLINICAL HISTORY: Non-small cell lung ca ncer <Unspecified side> INDICATION: Cancer staging or restaging COMPARISON: None TECHNIQUE: MRI of the brain without and with administration of intravenous contrast. FINDINGS: Intracranial: There is no acute hemorrhage or acute in farct. There is no mass effect or midline shift . The ventricles and extra-axial spaces ar e appropriate for age. There is no definite parenchymal or lept omeningeal enhancement. Questionable punctate enhancement in the bilateral internal auditory canals is favored artifactual and has been annotated for future follow-up. There is no sellar or suprasellar abnorm alities. Bone: There are no suspicious calvarial or sku ll base lesions. Extracranial: The orbits are unremarkable. The visualized paranasal sinuses are pre dominantly clear. The mastoid air cells are predominantly clear. Few opacified mastoid air cells are noted in the right mastoid tip. Procedure Note Sofie Fulton MD - 09/16/2022 FULL RESULT: EXAMINATION: MRI BRAIN W WO CONTRAST on 09/16/2022 11:00 AM CLINICAL HISTORY: Non-small cell lung ca ncer <Unspecified side> INDICATION: Cancer staging or restaging COMPARISON: None TECHNIQUE: MRI of the brain without and with administration of intravenous contrast. FINDINGS: Intracranial: There is no acute hemorrhage or acute in farct. There is no mass effect or midline shift . The ventricles and extra-axial spaces ar e appropriate for age. There is no definite parenchymal or lept omeningeal enhancement. Questionable punctate enhancement in the bilateral internal auditory canals is favored artifactual and has been annotated for future follow-up. There is no sellar or suprasellar abnorm alities. Bone: There are no suspicious calvarial or sku ll base lesions. Extracranial: The orbits are unremarkable. The visualized paranasal sinuses are pre dominantly clear. The mastoid air cells are predominantly clear. Few opacified mastoid air cells are noted in the right mastoid tip. IMPRESSION: No definite intracranial metastasis. Que stionable punctate foci of enhancement in the internal auditory canals are favored artifactual and have been annotated for close follow-up. Mojgan Lopez MD IMG MRI ORDERABLES (ABNORMAL) SPIROMETRY W/DILATORS, DLCO AND BODY PLETHSMOGRAPHIC LUNG VOLUMES (09/13/2022 3:38 PM CDT) Analysis Performed At Patho logist Time Signature FVC (L) post 2.081 (L) 3.288 - 09/13/2022 [facility] 4.836 L 3:38 PM CDT FEV1 (L) post 1.570 (L) 2.581 - 09/13/2022 [facility] 3.891 L 3:38 PM CDT FEV1/FVC (%) 75.454 71.028 - 09/13/2022 [facility] post 90.615 % 3:38 PM CDT DLCO_SB 13.306 (L) 15.953 - 09/13/2022 [facility] ml/(min*mmHg) 36.120 3:38 PM CDT ml/(min*mm Hg) DLCOc_SB 13.654 (L) 15.953 - 09/13/2022 [facility] ml/(min*mmHg) 36.120 3:38 PM CDT ml/(min*mm Hg) TLC (L) 3.984 (L) 4.575 - 09/13/2022 [facility] 6.549 L 3:38 PM CDT RV (L) 1.842 1.289 - 09/13/2022 [facility] 2.441 L 3:38 PM CDT RV/TLC (%) 46.235 (H) 25.350 - 09/13/2022 [facility] 44.530 % 3:38 PM CDT FVC (L) pre 1.983 (L) 3.288 - 09/13/2022 [facility] 4.836 L 3:38 PM CDT FEV1 (L) pre 1.468 (L) 2.581 - 09/13/2022 [facility] 3.891 L 3:38 PM CDT FEV1/FVC (%) 74.017 71.028 - 09/13/2022 [facility] pre 90.615 % 3:38 PM CDT FVC (% pred) 49 % 09/13/2022 [facility] pre 3:38 PM CDT FVC (% pred) 51 % 09/13/2022 [facility] post 3:38 PM CDT FEV1 (%pred) 45 % 09/13/2022 [facility] pre 3:38 PM CDT FEV1 (% pred) 49 % 09/13/2022 [facility] post 3:38 PM CDT FEV1/FVC (% 92 % 09/13/2022 [facility] pred) pre 3:38 PM CDT FEV1/FVC (% 93 % 09/13/2022 [facility] pred) post 3:38 PM CDT TLC (% pred) 72 % 09/13/2022 [facility] 3:38 PM CDT RV (% pred) 99 % 09/13/2022 [facility] 3:38 PM CDT RV/TLC (% 132 % 09/13/2022 [facility] pred) 3:38 PM CDT DLCO_SB (% 51 % 09/13/2022 [facility] pred) 3:38 PM CDT DLCOc_SB (% 52 % 09/13/2022 [facility] pred) 3:38 PM CDT Specimen (Source) Anatomical Collection Method Collection Time Re ceived Time Location / / Volume Laterality 09/13/2022 2:55 PM CDT Narrative This result has an attachment that is no t available. Britta Shay Mike [employer] SERVICES EDUCATION CONSULTANT PFT ORDERABLES Performing Organization Address City/State/ZIP Code Phon e Number [facility] PETCT Initial Treatment Strategy (09/13/2022 12:28 PM CDT) Anatomical Region Laterality Modality Whole Body Positron Emission To mography (PET) Specimen (Source) Anatomical Collection Method Collection Time Re ceived Time Location / / Volume Laterality 09/13/2022 4:14 PM CDT Impressions 09/13/2022 4:23 PM CDT 1. Confluent tumor at the right hilum and right mediastinum up to the thoracic inlet surrounds the stented superior vena cava is markedly FDG avid. There is extensive adenopathy along the left main br onchus. There are also suspicious but sm all lymph nodes in the lower neck bilaterally. 2. There is postobstructive consolidat ion in the right middle and lower lobe but no definite primary lung nodule could be separately identified. No distant metastatic disease is otherwise seen. Narrative 09/13/2022 4:23 PM CDT FULL RESULT: Examination: PETCT INITIAL TREATMENT STR ATEGY, 09/13/2022 12:28 PM Clinical History: Lung adenocarcinoma Indication: Staging. Determine initial t reatment strategy. Comparison: CT 09/13/[address] 08/15/2022 Technique: F-18 fluorodeoxyglucose (FDG) 9.7 mCi was administered intravenously via right antecubital vein. To allow for distribution and uptake of radiotracer, the patient was asked to rest quietly f or approximately 60-90 minutes. PET/CT imaging was performed from the skull vertex to upper thighs. CT scanning was done for attenuation correction, image registration, and diagnosis with scan paramet ers optimized to minimize radiation expo sure to the patient. SUV measurements are reported as maximum SUV based on body weight unless otherwise specified. Findings: Head and Neck: No intracranial abnormali ty. The orbits and paranasal sinuses are normal. Small thoracic inlet lymph nodes are mildly avid bilaterally. Chest: Cardiac chamber sizes are normal. There is a stent in the right brachiocephalic vein and superior vena cava. Confluent mass in the right mid and upper mediastinum extending down to the subcarinal station surrounds the superior vena cav a. SUV max is 52. The adenopathy is partly contiguous into the right hilum. The adenopathy only extends slightly across the midline but there is avid adenopathy a long the left main bronchus. There is co nsolidation peripheral to the adenopathy along the right hemidiaphragm and in the basal segments of the right lower lobe. There is little or no avidity in the con solidation. Scarring at the lung apices. No separate pulmonary nodules. No pleural effusion. Abdomen and Pelvis: Left hemidiaphragm i s elevated. Cholecystectomy. The liver, spleen, pancreas, adrenals and kidneys are unremarkable. Contrast media presumably from preceding chest CT. Nodularity in the anterior abdominal wall presumably i njection sites. There is no mesenteric adenopathy. There is no retroperitoneal adenopathy. The bowel appears normal. The uterus is absent, presumably surgically. The urinary bladder is normal. No pelvic or inguinal adenopathy. Musculoskeletal: There is no focal FDG a vid or destructive bone lesion. Procedure Note Xander Scanlon MD - 09/13/2022Formatt ing of this note might be different from the original. FULL RESULT: Examination: PETCT INITIAL TREATMENT STR GIANNA, 09/13/2022 12:28 PM Clinical History: Lung adenocarcinoma Indication: Staging. Determine initial t reatment strategy. Comparison: CT 09/13/[address] 08/15/2022 Technique: F-18 fluorodeoxyglucose (FDG) 9.7 mCi was administered intravenously via right antecubital vein. To allow for distribution and uptake of radiotracer, the patient was asked to rest quietly for approximately 60-90 minutes. PET/CT imag ing was performed from the skull vertex to upper thighs. CT scanning was done for attenuation correction, image registration, and diagnosis with scan parameters optimized to minimize radiation exposure to the patie nt. SUV measurements are reported as maximum SUV based on body weight unless otherwise specified. Findings: Head and Neck: No intracranial abnormali ty. The orbits and paranasal sinuses are normal. Small thoracic inlet lymph nodes are mildly avid bilaterally. Chest: Cardiac chamber sizes are normal. There is a stent in the right brachiocephalic vein and superior vena cava. Confluent mass in the right mid and upper mediastinum extending down to the subcarinal station surrounds the superior vena cava. SUV ma x is 52. The adenopathy is partly contiguous into the right hilum. The adenopathy only extends slightly across the midline but there is avid adenopathy along the left main bronchus. There is consolidation periphe ral to the adenopathy along the right hemidiaphragm and in the basal segments of the right lower lobe. There is little or no avidity in the consolidation. Scarring at the lung apices. No separate pulmonary nodules. N o pleural effusion. Abdomen and Pelvis: Left hemidiaphragm i s elevated. Cholecystectomy. The liver, spleen, pancreas, adrenals and kidneys are unremarkable. Contrast media presumably from preceding chest CT. Nodularity in the anterior abdominal wall presumably injection site s. There is no mesenteric adenopathy. There is no retroperitoneal adenopathy. The bowel appears normal. The uterus is absent, presumably surgically. The urinary bladder is normal. No pelvic or inguinal adenopa thy. Musculoskeletal: There is no focal FDG a vid or destructive bone lesion. IMPRESSION: 1. Confluent tumor at the right hilum an d right mediastinum up to the thoracic inlet surrounds the stented superior vena cava is markedly FDG avid. There is extensive adenopathy along the left main bronchus. There are also suspicious but small lymph node s in the lower neck bilaterally. 2. There is postobstructive consolidatio n in the right middle and lower lobe but no definite primary lung nodule could be separately identified. No distant metastatic disease is otherwise seen. Mojgan Lopez MD IMG PETCT ORDERABLES CT Chest with Contrast (09/13/2022 9:42 AM CDT) Anatomical Region Laterality Modality Chest Computed Tomography Specimen (Source) Anatomical Collection Method Collection Time Re ceived Time Location / / Volume Laterality 09/13/2022 4:13 PM CDT Impressions 09/13/2022 4:33 PM CDT Right hilar, infrahilar and bilateral mediastinal lymphadenopathy, some of which have increased in size since 08/15/2022. Subcentimeter supraclavicular lymph nodes are nonspecific but metastatic involvement cannot be excluded Nonspecific stable asymmetric right apic al opacity may represent sequela of prior infection. This can be reevaluated on follow-up CT. Narrative 09/13/2022 4:33 PM CDT FULL RESULT: Examination: CT CHEST W CONTRAST, 023 9:42 AM Clinical History: Non-small cell lung ca ncer <Right side> Indication: Cancer staging or restaging, COVID-19 Not Suspected, baseline CT chest Comparison: Outside CT chest 08/15/2022, outside abdominal CT 08/17/2022 Technique: CT of the chest was performed using intravenous contrast. Findings: Tubes and Lines: None Lungs and Airways: There is elevation of the right hemidiaphragm with associated basilar atelectasis. Upper lobe predominant emphysema is noted. Asymmetric right apical nodular opacity (image 24) measuring 1.6 cm stable. There are nonspecific 2 to 4 mm pulmonary nodules, for example in the left apex (images 21, 22), in the left upper lobe (image 53) Pleura: The pleural spaces are clear. Heart and Mediastinum: A stent is note d in the superior vena cava. Right hilar lymph node measures 2 cm, previously 1.8 cm. Subcarinal lymph node measures 2.2 cm, previously 1.4 cm. Lower right paratr acheal lymph node measures 2.5 cm, previ ously 2.1 cm. A right infrahilar confluent reji mass measures 2.6 cm in short axis, previously 1.5 cm. A left lower paratracheal lymph node measures 1 cm has inc reased in size. Other mediastinal lymph nodes are stable or larger. The heart is normal in size Soft Tissues: A right supraclavicular ly mph node measures 7 mm. There are additional subcentimeter bilateral supraclavicular lymph nodes Upper Abdomen: The patient is status pos t cholecystectomy. No evidence of hydronephrosis in the visualized right kidney. Visualized adrenal glands are within normal limits. The spleen is not enlarged. Bones: The visualized bony thorax show s degenerative changes. Procedure Note Susanne Tavarez MD - 09/13/2022 FULL RESULT: Examination: CT CHEST W CONTRAST, 023 9:42 AM Clinical History: Non-small cell lung ca ncer <Right side> Indication: Cancer staging or restaging, COVID-19 Not Suspected, baseline CT chest Comparison: Outside CT chest 08/15/2022, outside abdominal CT 08/17/2022 Technique: CT of the chest was performed using intravenous contrast. Findings: Tubes and Lines: None Lungs and Airways: There is elevation of the right hemidiaphragm with associated basilar atelectasis. Upper lobe predominant emphysema is noted. Asymmetric right apical nodular opacity (image 24) measuring 1.6 cm stable. There are nonspecific 2 to 4 mm pulmonary nodules, for example in the left apex (images 21, 22), in the left upper lobe (image 53) Pleura: The pleural spaces are clear. Heart and Mediastinum: A stent is noted in the superior vena cava. Right hilar lymph node measures 2 cm, previously 1.8 cm. Subcarinal lymph node measures 2.2 cm, previously 1.4 cm. Lower right paratracheal lymph node measures 2.5 cm, previously 2.1 cm. A ri ght infrahilar confluent reji mass measures 2.6 cm in short axis, previously 1.5 cm. A left lower paratracheal lymph node measures 1 cm has increased in size. Other mediastinal lymph nodes are stable or la rger. The heart is normal in size Soft Tissues: A right supraclavicular ly mph node measures 7 mm. There are additional subcentimeter bilateral supraclavicular lymph nodes Upper Abdomen: The patient is status pos t cholecystectomy. No evidence of hydronephrosis in the visualized right kidney. Visualized adrenal glands are within normal limits. The spleen is not enlarged. Bones: The visualized bony thorax shows degenerative changes. IMPRESSION: Right hilar, infrahilar and bilateral me diastinal lymphadenopathy, some of which have increased in size since 08/15/2022. Subcentimeter supraclavicular lymph nodes are nonspecific but metastatic involvement cannot be excluded Nonspecific stable asymmetric right apic al opacity may represent sequela of prior infection. This can be reevaluated on follow-up CT. Papito Flores NP IM CT ORDERABLES LB Liquid Biopsy Panel V1 Interpretation and Report (09/09/2022 12:17 PM CDT) Specimen (Source) Anatomical Collection Method Collection Time Re ceived Time Location / / Volume Laterality 09/09/2022 12:17 PM CDT Narrative This result has an attachment that is no t available. Mojgan Lopez MD, MDA [facility] MOLECULAR DIAGNOSTICS (HP MD) LB EML4/ALK Fusion Analysis Collection, Blood (09/09/2022 12:17 PM CDT) athologist Signature Molecular Yes [facility] (Received) Specimen Anatomical Collection Method Collection Time Receive d Time (Source) Location / / Volume Laterality Blood 09/09/2022 12:17 09/09/2022 2:37 PM CDT PM CDT Narrative [facility] - 3 2:38 PM CDT Link with other labwork ordered. Mojgan Lopez MD, MDA HP MD BLOOD COLLECTIONS Performing Organization Address City/[facility] Phon e Number [facility] Unless otherwise noted, [address] all lab tests performed by: Division of Pathology and Laboratory Medicine [address] [place], [place] [address]vinnie Coughlin LB ROS1 Fusion Analysis Collection, Blood (09/09/2022 12:17 PM CDT) athologist Signature Molecular Yes [facility] (Received) Specimen Anatomical Collection Method Collection Time Receive d Time (Source) Location / / Volume Laterality Blood 09/09/2022 12:17 09/09/2022 2:37 PM CDT PM CDT Narrative [facility] - 3 2:38 PM CDT Link with other labwork ordered. Mojgan GUAN MD BLOOD COLLECTIONS Performing Organization Address City/State/ZIP Code Phon e Number [facility] Unless otherwise noted, [address] all lab tests performed by: Division of Pathology and Laboratory Medicine [address] [place] [address] Ced LB RET Fusion Analysis Collection, Blood (09/09/2022 12:17 PM CDT) athologist Signature Molecular Yes [facility] (Received) Specimen Anatomical Collection Method Collection Time Receive d Time (Source) Location / / Volume Laterality Blood 09/09/2022 12:17 09/09/2022 2:37 PM CDT PM CDT Narrative [facility] - 3 2:38 PM CDT Link with other labwork ordered. Mojgan GUAN MD BLOOD COLLECTIONS Performing Organization Address City/[facility]/ZIP Code Phon e Number [facility] Unless otherwise noted, [address] all lab tests performed by: Division of Pathology and Laboratory Medicine Олег HARRINGTON MET Mutation Analysis Collection, Blood (09/09/2022 12:17 PM CDT) athologist Signature Molecular Yes [facility] (Received) Specimen Anatomical Collection Method Collection Time Receive d Time (Source) Location / / Volume Laterality Blood 09/09/2022 12:17 09/09/2022 2:37 PM CDT PM CDT Narrative [facility] - 3 2:38 PM CDT Link with other labwork ordered. Mojgan GUAN MD BLOOD COLLECTIONS Performing Organization Address City/[facility]/ZIP Code Phon e Number [facility] Unless otherwise noted, [address] all lab tests performed by: Division of Pathology and Laboratory Medicine Олег Coughlin LB ERBB2 Full Gene Mutation Analysis Collection, Blood (09/09/2022 12:17 PM CDT) athologist Signature Molecular Yes [facility] (Received) Specimen Anatomical Collection Method Collection Time Receive d Time (Source) Location / / Volume Laterality Blood 09/09/2022 12:17 09/09/2022 2:37 PM CDT PM CDT Narrative [facility] - 3 2:38 PM CDT Link with other labwork ordered. Mojgan GUAN MD BLOOD COLLECTIONS Performing Organization Address City/[facility]/ZIP Code Phon e Number [facility] Unless otherwise noted, [address] all lab tests performed by: Division of Pathology and Laboratory Medicine [address]av[address] LB BRAF Mutation Analysis Collection, Blood (09/09/2022 12:17 PM CDT) athologist Signature Molecular Yes [facility] (Received) Specimen Anatomical Collection Method Collection Time Receive d Time (Source) Location / / Volume Laterality Blood 09/09/2022 12:17 09/09/2022 2:37 PM CDT PM CDT Narrative [facility] - 2:38 PM CDT Link with other labwork ordered. Mojgan GUAN MD BLOOD COLLECTIONS Performing Organization Address City/State/ZIP Code Phon e Number [facility] Unless otherwise noted, [address] all lab tests performed by: Division of Pathology and Laboratory Medicine [facility]5 Tatyana Coughlin MD NGS Blood Control (09/09/2022 12:17 PM CDT) P athologist [facility] Molecular Yes [facility] (Received) Specimen Anatomical Collection Method Collection Time Receive d Time (Source) Location / / Volume Laterality Blood 09/09/2022 12:17 09/09/2022 2:38 PM CDT PM CDT Mojgan Lopez MD, MDA IP HP MOLECULAR DIAG IF ORDERABLES Performing Organization Address City/[facility]/ZIP Code Phon e Number [facility] Unless otherwise noted, [address] all lab tests performed by: Division of Pathology and Laboratory Medicine [facility]5 Tatyana Coughlin OSI Chest (08/23/2022 3:20 PM CDT)Only the most recent of3 resultswithin the time period is included. Specimen (Source) Anatomical Location Collection Method / Collectio n Time Received Time / Laterality Volume Narrative Systemgenerated, Documentation - 023 3:20 PM CDT Study acquired at another institution. For comparison only. No Joseph originated interpretation requested or a vailable. Mojgan GUEVARAG OUTSIDE IMAGE ORDERABLES OSI Catheter Placement Study (08/23/2022 3:20 PM CDT) Specimen (Source) Anatomical Location Collection Method / Collectio n Time Received Time / Laterality Volume Narrative Systemgenerated, Documentation - 023 3:20 PM CDT Study acquired at another institution. For comparison only. No MD Ruiz originated interpretation requested or a vailable. Mojgan DURANT OUTSIDE IMAGE ORDERABLES Pathology Outside Interpretation (08/21/2022) Component Value Ref Test Analysis Performed Pathologis t Range Method Time At [facility] Materials Accession#, Stained, Block, Unstained Collected Received 09/06/2022 [facility] Received A. [id number], 22 SS, 0 BLOCKS, 0 USS 08/21/2022 09/05/2022 3:20 PM CDT Diagnosis Received 22 slides ([id number]) designated lymph node, station 4R, EBUS-fine needle aspiration and biopsy: 09/06/2022 [facility] Electronically 3:20 PM signed by Mark TALBOT CDT Alfredo white MD on 09/06/2022 at 3:20 PM Comment Immunoperoxidase 09/06/2022 [facility] stains, performed 3:20 PM on cell block (A3) CDT sections at the referring institution and submitted for review with appropriate controls, are positive for CK7 and negative for CK20, CK5/6, p40, TTF1, NapsinA, ER, DC, and HER2 (score 0+). Although not specific, the findings would be compatible with a lung primary in the appropriate clinical and radiological setting. Biomarker Insufficient 09/06/2022 [facility] Block(s) 3:20 PM CDT Disclaimer "Some tests 09/06/2022 [facility] reported here may 3:20 PM have been developed CDT and performance characteristics determined by [facility] Pathology and Laboratory Medicine. These tests have not been specifically cleared or approved by the U.S. Food and Drug Administration. If applicable, controls were reviewed and showed appropriate reactivity." Specimen (Source) Anatomical Collection Method Collection Time Re ceived Time Location / / Volume Laterality Tissue 08/21/2022 09/05/2022 2:50 PM CDT Jazmin Fox MD LAB PATHOLOGY ORDERABLES Performing Organization Address City/State/ZIP Code Phon e Number [facility] [place] [address] [id number] [facility] [address] Abdomen and Pelvis (08/17/2022 3:19 PM CDT) Specimen (Source) Anatomical Location Collection Method / Collectio n Time Received Time / Laterality Volume Narrative Systemgenerated, Documentation - 023 3:19 PM CDT Study acquired at another institution. For comparison only. No [facility] originated interpretation requested or a vailable. Mojgan Lopez MD IMG OUTSIDE IMAGE ORDERABLES OSI CT Chest (08/15/2022 3:32 PM CDT) Specimen (Source) Anatomical Location Collection Method / Collectio n Time Received Time / Laterality Volume Narrative Systemgenerated, Documentation - 023 3:32 PM CDT Study acquired at another institution. For comparison only. No MD Ruiz originated interpretation requested or a vailable. Mojgan DURANT OUTSIDE IMAGE ORDERABLES OSI CT Sft Tiss Neck (08/15/2022 3:31 PM CDT) Specimen (Source) Anatomical Location Collection Method / Collectio n Time Received Time / Laterality Volume Narrative Systemgenerated, Documentation - 023 3:31 PM CDT Study acquired at another institution. For comparison only. No MD Ruiz originated interpretation requested or a vailable. Mojgan DURANT OUTSIDE IMAGE ORDERABLES OSI CT Maxillofacial Area (08/15/2022 3:31 PM CDT) Specimen (Source) Anatomical Location Collection Method / Collectio n Time Received Time / Laterality Volume Narrative Systemgenerated, Documentation - 023 3:31 PM CDT Study acquired at another institution. For comparison only. No MD Ruiz originated interpretation requested or a vailable. Mojgan DURANT OUTSIDE IMAGE ORDERABLES after 10/05/2021 Insurance Payer Benefit Plan / Subscriber ID Effective Dates Phone Addre ss Type Group [facility] [id number] 2022-Presen [address] [facility] [place] [address] Care Teams [employer] Attendant Relationship Specialty Start Date End Date Mojgan Lopez MD PCP - General Medical Oncology 09/03/[address] [place] [id number]
--- OUTSIDE RECORDS SUMMARY | 2022-10-05 20:56 | XMS REPORT | Continuity of Care Document ---
:1975 Author Organization [facility] t Address [address] [facility]. [address] [place] [address] Care Team Providers Name Role Phone [phone] Primary Care Physician Unavailable Mahendra Malik Attending Clinician Unavailable DEBORAH SANDHU Attending Clinician Unavailable DEBORAH SANDHU Attending Clinician Unavailable Rosa Carney Attending Clinician Nicole Canales RN Attending Clinician Unavailable Mojgan Lopez MD Attending Clinician Rosario Khanna RN Attending Clinician MOJGAN LOPEZ Attending Clinician Unavailable Serafin Whitman RN Attending Clinician Kaykay Silva Attending Clinician Stewart Curry Attending Clinician Unavailable Oliva Webster MD Attending Clinician OLIVA WEBSTER Attending Clinician Unavailable Papito Larry NP Attending Clinician Buffy Serrano MD Attending Clinician Maddy Godoy CRNA Attending Clinician Britta Hylton Attending Clinician David ELAINE, Paulette Attending Clinician BRITTA SWEET Attending Clinician Unavailable PAPITO LARRY Attending Clinician Unavailable Edward LANDA, Beth Attending Clinician [phone] Heidi Garcia MD, El Qureshi Attending Clinician Dominique LANDA, Jazmin Urena Attending Clinician Unavailable Shree LANDA, Deshaun Shay Attending Clinician Praveen ELAINE, Jackie Estrella Attending Clinician Kim RALPH, Radha Attending Clinician Zulma LANDA, Onofre Attending Clinician Gini AMAYAP, Troy Zamudio Attending Clinician Carlos Alberto LANDA, Bety Attending Clinician Gregory Helm MD Attending Clinician GREGORY HELM Attending Clinician Unavailable Mine LANDA, Lawanda Attending Clinician Ratna Ramirez LVN Attending Clinician Brenda Dobbins MD Attending Clinician Ronnie Hammond DO Attending Clinician Jack Webster DO Attending Clinician Clinic-Stv, Care Transition Attending Clinician Unavailable Doctor Unassigned, Maeser Attending Clinician Unavailable KAYA HERRERA Attending Clinician Unavailable Kaya Herrera DO Attending Clinician DEBORAH SANDHU Admitting Clinician Unavailable Bety Carcamo MD Admitting Clinician BETY CARCAMO Admitting Clinician Unavailable Payers Payer Name Policy Type Policy Number Effective Date Expiration Date Donald grant [facility] [id number] 2022 PPO 00:00:00 [place] [id number] 2016 OF [facility] 00:00:00 Problems Condition Condition Condition Status Onset Resolution Last Treating Co mments Source Name Details Category Date Date Treatment Clinician Date 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 Center Formattin g of this note might be different from the original. Added automatic ally from request for surgery [id number] Cobalamin Cobalamin Disease Active Uni vers deficiency deficiency 2-27 it y of 00:00: [place] 00 MD Nadege domínguez [facility] Dyslipidem Dyslipidem Disease Active U john ia ia 2- ity of 00:00: [place] [facility] Anemia Anemia Disease Active Univers 2-09 ity of 00:00: [place] 00 MD Nadege domínguez [facility] Dizziness Dizziness Disease Active Uni vers 2-08 ity of 00:00: [place] 00 [facility] History of History of Disease Active U nivakash abnormal abnormal 2-07 ity of cervical cervical 00:00: [place] Pap smear Pap smear 00 [facility] Chronic Chronic Disease Active Univers obstructiv obstructiv 4-24 it y of e e 00:00: [place] pulmonary pulmonary 00 disease [facility] Tobacco Tobacco Disease Active Univers use use 1-23 ity of disorder disorder 00:00: [place] 00 [facility] Allergies, Adverse Reactions, Alerts Allergy Allergy Status Severity Reaction(s) Onset Inactive Treating Comm ents Source Name Type Date Date Clinician AZITHROM DRUG Active Swelling Univer s YCIN INGREDI 3-30 ity of 00:00: [place] 00 Medical Branch AZITHROM DRUG Active Swelling MD YCIN INGREDI 3-30 Anderso 00:00: n 00 AZITHROM DRUG Active Swelling MD YCIN INGREDI 3-30 Anderso 00:00: n 00 AZITHROM DRUG Active Swelling 2023-0 MD YCIN INGREDI 3-30 Anderso 00:00: n 00 AZITHROM DRUG Active Swelling 2023-0 MD YCIN INGREDI 3-30 Anderso 00:00: n 00 AZITHROM DRUG Active Swelling 2023-0 MD YCIN INGREDI 3-30 Anderso 00:00: n 00 AZITHROM DRUG Active Swelling 2023-0 MD YCIN INGREDI 3-30 Anderso 00:00: n 00 AZITHROM DRUG Active Swelling 2023-0 MD YCIN INGREDI 3-30 Anderso 00:00: n 00 AZITHROM DRUG Active Swelling 2023-0 MD YCIN INGREDI 3-30 Anderso 00:00: n 00 AZITHROM DRUG Active Swelling 2023-0 MD YCIN INGREDI 3-30 Anderso 00:00: n 00 AZITHROM DRUG Active Swelling 2023-0 MD YCIN INGREDI 3-30 Anderso 00:00: n 00 AZITHROM DRUG Active Swelling 2023-0 MD YCIN INGREDI 3-30 Anderso 00:00: n 00 AZITHROM DRUG Active Swelling 2023-0 MD YCIN INGREDI 3-30 Anderso 00:00: n 00 AZITHROM DRUG Active Swelling 2023-0 MD YCIN INGREDI 3-30 Anderso 00:00: n 00 AZITHROM DRUG Active Swelling 2023-0 MD YCIN INGREDI 3-30 Anderso 00:00: n 00 AZITHROM DRUG Active Swelling 2023-0 MD YCIN INGREDI 3-30 Anderso 00:00: n 00 AZITHROM DRUG Active Swelling 2023-0 MD YCIN INGREDI 3-30 Anderso 00:00: n 00 AZITHROM DRUG Active Swelling 2023-0 MD YCIN INGREDI 3-30 Anderso 00:00: n 00 AZITHROM DRUG Active Swelling 2023-0 MD YCIN INGREDI 3-30 Anderso 00:00: n 00 AZITHROM DRUG Active Swelling 2023-0 MD YCIN INGREDI 3-30 Anderso 00:00: n 00 AZITHROM DRUG Active Swelling 2023-0 MD YCIN INGREDI 3-30 Anderso 00:00: n 00 AZITHROM DRUG Active Swelling 2023-0 MD YCIN INGREDI 3-30 Anderso 00:00: n 00 AZITHROM DRUG Active Swelling 2023-0 MD YCIN INGREDI 3-30 [place]o 00:00: n 00 AZITHROM DRUG Active Swelling 2023-0 MD YCIN INGREDI 3-30 [place]o 00:00: n 00 AZITHROM DRUG Active Swelling 2023-0 MD YCIN INGREDI 3-30 [place]o 00:00: n 00 AZITHROM DRUG Active Swelling 2023-0 MD YCIN INGREDI 3-30 Anderso 00:00: n 00 AZITHROM DRUG Active Swelling 2023-0 MD YCIN INGREDI 3-30 Anderso 00:00: n 00 AZITHROM DRUG Active Swelling 2023-0 MD YCIN INGREDI 3-30 Anderso 00:00: n 00 AZITHROM DRUG Active Swelling 2023-0 MD YCIN INGREDI 3-30 Anderso 00:00: n 00 AZITHROM DRUG Active Swelling 2023-0 MD YCIN INGREDI 3-30 Anderso 00:00: n 00 AZITHROM DRUG Active Swelling 2023-0 MD YCIN INGREDI 3-30 [place]o 00:00: n 00 AZITHROM DRUG Active Swelling 2023-0 MD YCIN INGREDI 3-30 [place]o 00:00: n 00 AZITHROM DRUG Active Swelling 2023-0 MD YCIN INGREDI 3-30 [place]o 00:00: n 00 AZITHROM DRUG Active Swelling 2023-0 MD YCIN INGREDI 3-30 [place]o 00:00: n 00 AZITHROM DRUG Active Swelling 2023-0 MD YCIN INGREDI 3-30 [place]o 00:00: n 00 AZITHROM DRUG Active Swelling 2023-0 MD YCIN INGREDI 3-30 [place]o 00:00: n 00 AZITHROM DRUG Active Swelling 2023-0 MD YCIN INGREDI 3-30 Anderso 00:00: n 00 AZITHROM DRUG Active Swelling 2023-0 MD YCIN INGREDI 3-30 Anderso 00:00: n 00 AZITHROM DRUG Active Swelling 2023-0 MD YCIN INGREDI 3-30 Anderso 00:00: n 00 Azithrom Propensi Active Swelling 2023-0 Univ ers ycin ty to 3-30 ity of adverse 00:00: [place] reaction 00 [facility] AZITHROM DRUG Active Swelling 2023-0 MD YCIN INGREDI 3-30 Anderso 00:00: n 00 AZITHROM DRUG Active Swelling 2023-0 MD YCIN INGREDI 3-30 Anderso 00:00: n 00 AZITHROM DRUG Active Swelling 2023-0 MD YCIN INGREDI 3-30 Anderso 00:00: n 00 AZITHROM DRUG Active Swelling 2023-0 MD YCIN INGREDI 3-30 Anderso 00:00: n 00 AZITHROM DRUG Active Swelling 2023-0 MD YCIN INGREDI 3-30 Anderso 00:00: n 00 AZITHROM DRUG Active Swelling 2023-0 MD YCIN INGREDI 3-30 Anderso 00:00: n 00 AZITHROM DRUG Active Swelling 2023-0 MD YCIN INGREDI 3-30 Anderso 00:00: n 00 AZITHROM DRUG Active Swelling 2023-0 MD YCIN INGREDI 3-30 Anderso 00:00: n 00 AZITHROM DRUG Active Swelling 2023-0 MD YCIN INGREDI 3-30 Anderso 00:00: n 00 AZITHROM DRUG Active Swelling 2023-0 MD YCIN INGREDI 3-30 Anderso 00:00: n 00 AZITHROM DRUG Active Swelling 2023-0 MD YCIN INGREDI 3-30 Anderso 00:00: n 00 AZITHROM DRUG Active Swelling 2023-0 MD YCIN INGREDI 3-30 Anderso 00:00: n 00 AZITHROM DRUG Active Swelling 2023-0 MD YCIN INGREDI 3-30 Anderso 00:00: n 00 AZITHROM DRUG Active Swelling 2023-0 MD YCIN INGREDI 3-30 Anderso 00:00: n 00 AZITHROM DRUG Active Swelling 2023-0 MD YCIN INGREDI 3-30 Anderso 00:00: n 00 AZITHROM DRUG Active Swelling 2023-0 MD YCIN INGREDI 3-30 Anderso 00:00: n 00 AZITHROM DRUG Active Swelling 2023-0 MD YCIN INGREDI 3-30 Anderso 00:00: n 00 AZITHROM DRUG Active Swelling 2023-0 MD YCIN INGREDI 3-30 Anderso 00:00: n 00 AZITHROM DRUG Active Swelling 2022-0 YCIN INGREDI 3-30 Anderso 00:00: n 00 AZITHROM DRUG Active Swelling 2022-0 MD YCIN INGREDI 3-30 Anderso 00:00: n 00 AZITHROM DRUG Active Swelling 2022-0 MD YCIN INGREDI 3-30 Anderso 00:00: n 00 AZITHROM DRUG Active Swelling 2022-0 MD YCIN INGREDI 3-30 Anderso 00:00: n 00 COCONUT DRUG Active Anaphylaxis 2021-05 Univ ers INGREDI 2-17 ity of 00:00: [address] [place] Propensi Active Anaphylaxis 2021-05 Un cassy ty to 217 ity of adverse 00:00: [place] reaction 00 MD donald Light [facility] COCONUT DRUG Active High Anaphylaxis 2021-05 MD INGREDI 2 Anderso 00:00: n 00 NO KNOWN Drug Active Univers ALLERGIE Class ity of [facility] Family History Family Member Diagnosis Comments Start Date Stop Date Source Natural father Bipolar disorder Univ ersity [facility] Natural father Pulmonary [facility] Natural father Emphysema [facility]iel [facility] Natural [facility] Natural mother Diabetes [facility] Jasiel son Cancer Center Natural mother Fibromyalgia Universi ty [facility] Jasiel son Cancer Center Natural mother Hypertension Universi ty of [place] [facility] Cancer Center Paternal Kidney cancer [facility] MD [place] rs Cancer [place] Paternal Alzheimer's disease Unive rsity of grandmother [place] MD [facility] [place] Social History Social Habit Start Date Stop Date Quantity Comments Source History SDOH University o f Alcohol Std Drinks [place] [facility] History SDOH University o f Alcohol Binge [place] [facility] History SDOH Social Unive rsity of Connections Phone [place] M edical Branch History SDOH Social Unive rsity of Connections Get [place] Med ical Together Branch History SDOH Social Unive rsity of Connections [facility] Medical Branch History SDOH Social Unive rsity of Connections [place] Medical Membership Branch History SDOH Social Unive rsity of Connections [place] Medical Meetings Branch History SDOH University o f Housing Places [facility] Branch Exposure to 2022-09-15 2022-09-25 Not sure University of SARS-CoV-2 (event) 00:00:00 09:27:00 [facility] Alcohol intake 2022-09-25 2022-09-25 Ex-drinker University of 00:00:00 00:00:00 (finding) [place] MD Jasiel fernandez [facility] Cigarettes smoked 2022-09-09 2022-09-09 Univers ity of current (pack per 00:00:00 00:00:00 [place] Jaspal Dupont ) - Reported Cancer Ce nter Cigarette 2022-09-09 2022-09-09 University of pack-years 00:00:00 00:00:00 [place] MD Jasiel fernandez [facility] Tobacco use and 2022-09-09 2022-09-09 Smokeless Universit y of exposure 00:00:00 00:00:00 tobacco non-user [facility] History SDOH 2022-08-20 2022-08-20 1 University o f Financial 00:00:00 00:00:00 [place] [facility] History SDOH Food 2022-08-20 2022-08-20 1 Univers ity of Worry 00:00:00 00:00:00 [place] [facility] History SDOH Food 2022-08-20 2022-08-20 1 Univers ity of Scarcity 00:00:00 00:00:00 [place] [facility] History SDOH 2022-08-20 2022-08-20 2 University o f Transport Med 00:00:00 00:00:00 [place] Medic al [facility] History SDOH 2022-08-20 2022-08-20 2 University o f Transport Non-Med 00:00:00 00:00:00 [place] M edical Branch History SDOH 2022-08-20 2022-08-20 2 University o f Housing Unable to 00:00:00 00:00:00 [place] M edical Pay Branch History SDOH 2022-08-20 2022-08-20 2 University o f Housing Homeless 00:00:00 00:00:00 [place] Me dical Last Year Branch History SDOH 2022-08-17 2022-08-17 1 University o f Alcohol Frequency 00:00:00 00:00:00 [facility] edical Branch History SDOH Social 2022-08-17 2022-08-17 8 Unive rsity of Connections Living 00:00:00 00:00:00 [place] [facility] History of tobacco 2022-08-09 Current smoker Un iversity of use 00:00:00 [facility] Sex Ass[birth year] Universit y of 00:00:00 00:00:00 [place] MD Jasiel fernandez [facility] Smoking Status Start Date Stop Date Source Ex-smoker 2022-09-09 00:00:00 2022-09-09 00:00:00 [facility] [place] Smokes tobacco daily 2022-08-17 00:00:00 [facility] ity [facility] Medications Ordered Filled Start Stop Current Ordering Indication Dosage Frequency Signature Comments Components Source Medication Medication Date Date Medication? Clinician (SIG) Name Name pantoprazol 2022- No 40mg Take 1 Uni vers e 5-10 05-10 tablet (40 ity of (PROTONIX) 10:27: 00:00 mg) [place] 40 mg EC 52 :00 mouth MD tablet every [place] morning n before Cancer breakfast. [place] acetaminoph Yes 500mg Take 1 Uni vers en 5-10 tablet ity of (TYLENOL) 09:41: (500 mg[place] 500 mg 49 by mouth MD tablet every 6 [place]o (six) n hours as Cancer needed for Center mild pain. pantoprazol Yes Non-small 40mg Take 1 Univers e 5-10 cell lung tablet (40 ity of (PROTONIX) 00:00: cancer mg) by Luis Angel as 40 mg EC 00 <Right mouth MD tablet side> every [place] morning n before Cancer breakfast. [place] apixaban 2023- Yes Stent in 5mg Take 1 Un cassy (Eliquis) 5 04 03-30 anterior tablet (5 ity of mg tablet 00:00: 04:59 descending mg) by [place] 00 :00 branch of mouth left every 12 Anderso coronary (twelve) n artery hours for Cancer 330 days. [place] clopidogrel 2022- Yes Superior 75mg Take 1 Univers (Plavix) 75 5-04 07-04 vena cava tablet (75 ity of mg tablet 00:00: 04:59 syndrome mg) by Lizz hinojosa 00 :00 mouth daily for Anderso 60 days. n Cancer Center clopidogrel Yes Non-small 75mg Take 1 Univers (PLAVIX) 75 5-03 cell lung tablet (75 ity of mg tablet 00:00: [place] mg[place] <Right mouth MD side> daily. [facility] dexAMETHaso 2022- No Non-small 4mg Take 1 Univers ne 09-15- cell lung tablet (4 ity of (DECADRON) 00:00: 00:00 [place] mg[place] 4 mg tablet 00 :00 <Right mouth MD side> twice Anderso daily. On n the day Cancer before and Center day after chemo ondansetron 2022- No Non-small 8mg Take 1 Univers (ZOFRAN) 8 09-15 cell lung tablet (8 ity of mg tablet 00:00: 00:00 cancer mg) by Luis Angel as 00 :00 <Right mouth MD side> every 8 Anderso (eight) n hours as Cancer needed for Center nausea or vomiting. folic acid 2022- No Non-small 400ug Take 1 Univers (FOLVITE) 09-15 cell lung tablet it y of 400 mcg 00:00: 00:00 cancer (400 mcg) [place] tablet 00 :00 <Right by mouth MD side> daily. [facility] HYDROcodone Yes Neoplasm 1{tbl} Take 1 Univers -acetaminop 4-25 related tablet by ity of hen (NORCO) 00:00: pain mouth [place] 5 mg-325 mg 00 (acute) every 6 MD per tablet (chronic) (six) And erso hours as n needed for Cancer moderate Center pain. enoxaparin 2022- No INJECT 0.9 Univers (LOVENOX) 4-20 05-04 ML UNDER ity o f 100 mg/1 mL 00:00: 00:00 THE SKIN [place] prefilled 00 :00 EVERY 12 MD syringe HOURS [facility] clopidogrel 2022- No TAKE 1 Uni vers (PLAVIX) 75 -04 10- TABLET BY it y of mg tablet 00:00: 00:00 MOUTH IN [place] Angel as 00 :00 THE MD MORNING [facility] dexAMETHaso 2022- No TAKE 1 Uni vers ne 4-19 05-03 TABLET BY ity of (DECADRON) 00:00: 00:00 [place]TH IN [place] 4 mg tablet 00 :[address] [facility] clopidogreL 2022-0 Yes [id number] 75mg Take 1 Univers 75 mg 4-18 tablet by ity of tablet 00:00: mouth in [place] 00 the Medical morning. Branch dexAMETHaso 2022-0 Yes [id number] 4mg Take 1 Univers ne 4 mg 4-18 tablet by ity of tablet 00:00: mouth in [place] 00 the Medical morning. Branch enoxaparin 2022-0 Yes [id number] 90mg inject 0.9 Univers 100 mg/mL 4-18 mL under ity of injection 00:00: the skin [place] 00 every 12 Medical (twelve) Branch hours. pantoprazol 2022-0 Yes [id number] 40mg Take 1 Univers e 40 mg EC 4-18 tablet by ity of tablet 00:00: mouth in [place] the Medical morning. 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 Branch clopidogreL 2022-0 Yes [id number] 75mg Take 1 Univers 75 mg 4-09 tablet by ity of tablet 00:00: mouth in [place] the Medical morning. Branch clopidogreL 2022-0 Yes [id number] 75mg Take 1 Univers 75 mg 4-09 tablet by ity of tablet 00:00: mouth in [place] the Medical morning. Branch clopidogreL 3-0 Yes [id number] 75mg Take 1 Univers 75 mg 4-09 tablet by ity of tablet 00:00: mouth in [place] the Medical morning. Branch clopidogreL 3-0 Yes [id number] 75mg Take 1 Univers 75 mg 4-09 tablet by ity of tablet 00:00: mouth in [place] 00 the Medical morning. Branch clopidogreL 3-0 Yes [id number] 75mg Take 1 Univers 75 mg 4-09 tablet by ity of tablet 00:00: mouth in [place] 00 the Medical morning. Branch clopidogreL 2022-0 Yes [id number] 75mg Take 1 Univers 75 mg 4-09 tablet by ity of tablet 00:00: mouth in [place] 00 the Medical morning. Branch clopidogreL 2022-0 2022- No [id number] 75mg Take 1 Univers 75 mg 4-09 04-18 tablet by ity of tablet 00:00: 00:00 mouth in [place] 00 :00 the Medical morning. Branch Cetirizine 2022-0 Yes 20mg Take 2 Unive rs (ZYRTEC) 10 4-08 capsules ity of mg capsule 17:28: by mouth. [address] Branch ALBUTEROL 2022-0 Yes 1{puff} Inhale 1 U nivers INHALE 4-08 Puff as ity of 17:28: needed. [address] Branch fluticasone 2022-0 Yes 1{puff} Inhale 1 Univers -umeclidin- 4-08 Puff in ity o f vilanter 17:28: the [address] Medical [facility]) Branch 200-62.5-25 mcg DsDv meloxicam 0 Yes 15mg Take 1 Univer s 15 mg 4-08 tablet by ity of tablet 17:28: mouth in [place] [address] the Medical morning. Branch Cetirizine 2022-0 Yes 20mg Take 2 Unive rs (ZYRTEC) 10 4-08 capsules ity of mg capsule 17:28: by mouth. [address] Branch ALBUTEROL 0 Yes 1{puff} Inhale 1 U nivers INHALE 4-08 Puff as ity of 17:28: needed. [place] [address] Medical Branch fluticasone 2022-0 Yes 1{puff} Inhale 1 Univers -umeclidin- 4-08 Puff in ity o f vilanter 17:28: the [place] ([place] [address] morning. Medical ELLIP) Branch 200-62.5-25 mcg DsDv meloxicam 2022-0 Yes 15mg Take 1 Univer s 15 mg 4-08 tablet by ity of tablet 17:28: mouth in [place] [address] the Medical morning. Branch Cetirizine 2022-0 Yes 20mg Take 2 Unive rs (ZYRTEC) 10 4-08 capsules ity of mg capsule 17:28: by mouth. [address] Branch ALBUTEROL 2022-0 Yes 1{puff} Inhale 1 U nivers INHALE 4-08 Puff as ity of 17:28: needed. [address] Branch fluticasone 2022-0 Yes 1{puff} Inhale 1 Univers -umeclidin- 4-08 Puff in ity o f vilanter 17:28: the [place] ([place] [address] morning. [facility]) Branch 200-62.5-25 mcg DsDv meloxicam 2022-0 Yes 15mg Take 1 Univer s 15 mg 4-08 tablet by ity of tablet 17:28: mouth in [place] [address] the [facility] morning. Branch Cetirizine 2022-0 Yes 20mg Take 2 Unive rs (ZYRTEC) 10 4-08 capsules ity of mg capsule 17:28: by mouth. [address] Branch ALBUTEROL 2022-0 Yes 1{puff} Inhale 1 U nivers INHALE 4-08 Puff as ity of 17:28: needed. [address] Branch fluticasone 0 Yes 1{puff} Inhale 1 Univers -umeclidin- 4-08 Puff in ity o f vilanter 17:28: the [place] ([place] [address] morning. [facility]) Branch 200-62.5-25 mcg DsDv meloxicam 2022-0 Yes 15mg Take 1 Univer s 15 mg 4-08 tablet by ity of tablet 17:28: mouth in [place] [address] the [facility] morning. Branch Cetirizine 2022-0 Yes 20mg Take 2 Unive rs (ZYRTEC) 10 4-08 capsules ity of mg capsule 17:28: by mouth. [address] Branch ALBUTEROL 2022-0 Yes 1{puff} Inhale 1 U nivers INHALE 4-08 Puff as ity of 17:28: needed. [address] Branch fluticasone 2022-0 Yes 1{puff} Inhale 1 Univers -umeclidin- 4-08 Puff in ity o f vilanter 17:28: the [place] ([place] [address] morning. Medical [facility]) Branch 200-62.5-25 mcg DsDv meloxicam 2022-0 Yes 15mg Take 1 Univer s 15 mg 4-08 tablet by ity of tablet 17:28: mouth in [place] [address] the [facility] morning. Branch Cetirizine 2022-0 Yes 20mg Take 2 Unive rs (ZYRTEC) 10 4-08 capsules ity of mg capsule 17:28: by mouth. [place] [address] Medical Branch ALBUTEROL 2022-0 Yes 1{puff} Inhale 1 U nivers INHALE 4-08 Puff as ity of 17:28: needed. [place] [address] Medical Branch fluticasone 2022-0 Yes 1{puff} Inhale 1 Univers -umeclidin- 4-08 Puff in ity o f vilanter 17:28: the [place] ([place] [address] morning. Medical [facility]) Branch 200-62.5-25 mcg DsDv meloxicam 2022-0 Yes 15mg Take 1 Univer s 15 mg 4-08 tablet by ity of tablet 17:28: mouth in [address] morning. Branch Cetirizine 2022-0 Yes 20mg Take 2 Unive rs (ZYRTEC) 10 4-08 capsules ity of mg capsule 17:28: by mouth. [place] [address] Medical Branch ALBUTEROL 2022-0 Yes 1{puff} Inhale 1 U nivers INHALE 4-08 Puff as ity of 17:28: needed. [place] [address] Medical Branch fluticasone 2022-0 Yes 1{puff} Inhale 1 Univers -umeclidin- 4-08 Puff in ity o f vilanter 17:28: the [place] ([place] [address] morning. Medical ELLIP) Branch 200-62.5-25 mcg DsDv meloxicam 2022-0 Yes 15mg Take 1 Univer s 15 mg 4-08 tablet by ity of tablet 17:28: mouth in [address] morning. Branch Cetirizine 2022-0 Yes 20mg Take 2 Unive rs (ZYRTEC) 10 4-08 capsules ity of mg capsule 17:28: by mouth. [place] [address] Medical Branch ALBUTEROL 2022-0 Yes 1{puff} Inhale 1 U nivers INHALE 4-08 Puff as ity of 17:28: needed. [place] [address] Medical Branch fluticasone 2023-0 Yes 1{puff} Inhale 1 Univers -umeclidin- 4-08 Puff in ity o f vilanter 17:28: the [place] ([place] [address] morning. [facility]) Branch 200-62.5-25 mcg DsDv meloxicam 0 Yes 15mg Take 1 Univer s 15 mg 4-08 tablet by ity of tablet 17:28: mouth in [place] [address] the Medical morning. Branch Cetirizine 0 Yes 20mg Take 2 Unive rs (ZYRTEC) 10 4-08 capsules ity of mg capsule 17:28: by mouth. [place] [address] Medical Branch ALBUTEROL 0 Yes 1{puff} Inhale 1 U nivers INHALE 4-08 Puff as ity of 17:28: needed. [place] [address] Medical Branch fluticasone 0 Yes 1{puff} Inhale 1 Univers -umeclidin- 4-08 Puff in ity o f vilanter 17:28: the [place] ([place] [address] morning. [facility]) Branch 200-62.5-25 mcg DsDv meloxicam 0 Yes 15mg Take 1 Univer s 15 mg 4-08 tablet by ity of tablet 17:28: mouth in [place] [address] the Medical morning. Branch cefdinir 2022-0 2022- No 300mg Take 1 Unive rs 300 mg 4-08 04-08 capsule by ity of capsule 17:28: 00:00 mouth [place] 55 :00 every 12 Medical (twelve) Branch hours. cefdinir 2022-0 2022- No 300mg Take 1 Unive rs 300 mg 4-08 04-08 capsule by ity of capsule 17:28: 00:00 mouth [place] 55 :00 every 12 Medical (twelve) Branch hours. clopidogreL 0 Yes [id number] 75mg 75 mg, Univers (PLAVIX) 75 4-08 Oral, ity of mg tablet 14:00: DAILY, [place] 75 mg 00 First dose Medical on Sat Branch 08/24/22 at 0900, Until Discontinu ed, Routine enoxaparin 2022-0 Yes [id number] 1mg/kg 90 mg Univers (LOVENOX) 4-08 (rounded ity of injection 01:00: from 88.5 Luis Angel as 90 mg 00 mg = 1 Medical mg/kg Branch ?88.5 kg), Subcutaneo us, Q12H, First dose on Fri08/23/22 at 2000, Until Discontinu ed, Routine enoxaparin 2023-0 Yes [id number] 90mg inject 0.9 Univers 100 mg/mL 4-08 mL under ity of injection 00:00: [place] 00 every 12 Medical (twelve) Branch hours. dexAMETHaso 2023-0 Yes [id number] 4mg Take 1 Univers ne 4 mg 4-08 tablet by ity of tablet 00:00: mouth in [place] 00 the Medical morning. Branch enoxaparin 2023-0 Yes [id number] 90mg inject 0.9 Univers 100 mg/mL 4-08 mL under ity of injection 00:00: [place] 00 every 12 Medical (twelve) Branch hours. dexAMETHaso 2023-0 Yes [id number] 4mg Take 1 Univers ne 4 mg 4-08 tablet by ity of tablet 00:00: mouth in [place] 00 the Medical morning. Branch enoxaparin 2023-0 Yes [id number] 90mg inject 0.9 Univers 100 mg/mL 4-08 mL under ity of injection 00:00: [place] 00 every 12 Medical (twelve) Branch hours. dexAMETHaso 2023-0 Yes [id number] 4mg Take 1 Univers ne 4 mg 4-08 tablet by ity of tablet 00:00: mouth in [place] 00 the Medical morning. Branch enoxaparin 2023-0 Yes [id number] 90mg inject 0.9 Univers 100 mg/mL 4-08 mL under ity of injection 00:00: [place] 00 every 12 Medical (twelve) Branch hours. dexAMETHaso 2023-0 Yes [id number] 4mg Take 1 Univers ne 4 mg 4-08 tablet by ity of tablet 00:00: mouth in [place] 00 the Medical morning. Branch enoxaparin 2023-0 Yes [id number] 90mg inject 0.9 Univers 100 mg/mL 4-08 mL under ity of injection 00:00: [place] 00 every 12 Medical (twelve) Branch hours. dexAMETHaso 2023-0 Yes [id number] 4mg Take 1 Univers ne 4 mg 4-08 tablet by ity of tablet 00:00: mouth in [place] 00 the Medical morning. Branch enoxaparin 3-0 Yes [id number] 90mg inject 0.9 Univers 100 mg/mL 4-08 mL under ity of injection 00:00: [place] 00 every 12 Medical (twelve) Branch hours. dexAMETHaso 3-0 Yes [id number] 4mg Take 1 Univers ne 4 mg 4-08 tablet by ity of tablet 00:00: mouth in [place] 00 the Medical morning. [place] enoxaparin 2022-0 Yes [id number] 90mg inject 0.9 Univers 100 mg/mL 4-08 mL under ity of injection 00:00: [place] 00 every 12 Medical (twelve) Branch hours. dexAMETHaso 2022-0 Yes [id number] 4mg Take 1 Univers ne 4 mg 4-08 tablet by ity of tablet 00:00: mouth in [place] 00 the Medical morning. [place] enoxaparin 2022-0 2022- No [id number] 90mg inject 0.9 Univers 100 mg/mL 4-08 04-18 mL under ity o f injection 00:00: 00:00 the skin [place] Angel as 00 :00 every 12 Medical (twelve) Branch hours. dexAMETHaso 2022-0 2022- No [id number] 4mg Take 1 Univers ne 4 mg 4-08 04-18 tablet by ity of tablet 00:00: 00:00 mouth in [place] 00 :00 the Medical morning. [place] clopidogreL 2022- No [id number] 300mg 300 mg, Univers (PLAVIX) 08-23 04-07 Oral, ity of 300 mg 21:15: 23:17 ONCE, 1 [place] tablet 300 00 :00 dose, On Medic al mg Fri08/23/22 Branch at 1615, FUNMILAYO FENTanyl PF 2022-0 Yes Slow IV Uni vers (SUBLIMAZE 4-07 Push, PRN, ity of (PF)) 20:17: Starting [place] injection 46 on Fri08/23/22 at Branch 1517, Until Discontinu ed, Routine, Intra-op iopamidol 2022-0 2022- No [id number] 150mL 150 mL, Univers (ISOVUE - 04-07 Intravenou ity o f 300-100 mL) 20:00: 19:57 s, ONCE, 1 [place] injection 00 :00 dose, On Medica l 150 mL Fri08/23/22 Branch at 1500, Routine magnesium 2022-0 2022- No 2g 2 g, IV Univ ers sulfate in 08-23 Piggyback, it y of water 2 13:00: 15:15 Administer Luis Angel as gram/50 mL 00 :00 over 60 Medica l (4 %) Minutes, Branch infusion 2 ONCE, 1 g dose, On Fri08/23/22 at 0800, Routine LORazepam 2022-0 Yes .5mg 0.5 mg, Unive rs (ATIVAN) 08-22 Oral, ity of tablet 0.5 13:40: TIDPRN, [place] mg 50 Starting Medical on [facility] Branch 08/22/22 at 0840, Until Discontinu ed, Routine, Anxiety LORazepam 2022-0 Yes .5mg 0.5 mg, Unive rs (ATIVAN) 08-22 Oral, ity of tablet 0.5 13:40: TIDPRN, [place] mg 50 Starting Medical on [facility] Branch 08/22/22 at 0840, Until Discontinu ed, Routine, Anxiety lidocaine 2022-0 2022- No PRN, Univers in 08-21 Starting ity of NaCl,iso-os 16:26: 17:41 on Fri Luis Angel as mo(PF) 100 00 :30 08/21/22 at Medi inocencio mg/10 mL (1 1126, Branch %) Until Fri injection 08/21/22 at syringe 1241, Routine, Intra-op cefdinir 2022-0 Yes 300mg Take 1 Univer s 300 mg 4-05 capsule by ity of capsule 13:09: mouth [place] 19 every 12 Medical (twelve) Branch hours. Cetirizine 2022-0 Yes 20mg Take 2 Unive rs (ZYRTEC) 10 4-05 capsules ity of mg capsule 13:09: [place] [place] ALBUTEROL 2022-0 Yes 1{puff} Inhale 1 U nivers INHALE 4-05 Puff as ity of 13:09: needed. [address] Branch fluticasone 2022- Yes 1{puff} Inhale 1 Univers -umeclidin- 4-05 Puff in ity o f vilanter 13:09: the [place] (TRELEGY 19 morning. Medical ELLIP) Branch 200-62.5-25 mcg DsDv meloxicam 2022-0 Yes 15mg Take 1 Univer s 15 mg 4-05 tablet by ity of tablet 13:09: mouth in [place] 19 the Medical morning. Branch cefdinir 2022-0 Yes 300mg Take 1 Univer s 300 mg 4-05 capsule by ity of capsule 13:09: mouth [place] [address] every 12 Medical (twelve) Branch hours. Cetirizine 2022-0 Yes 20mg Take 2 Unive rs (ZYRTEC) 10 4-05 capsules ity of mg capsule 13:09: [place] 19 [place] Branch ALBUTEROL 2022-0 Yes 1{puff} Inhale 1 U nivers INHALE 4-05 Puff as ity of 13:09: needed. [place] [address] Medical Branch fluticasone 2022-0 Yes 1{puff} Inhale 1 Univers -umeclidin- 4-05 Puff in ity o f vilanter 13:09: the [place] (TREGY 19 morning. Medical ELLIP) Branch 200-62.5-25 mcg DsDv meloxicam 2022-0 Yes 15mg Take 1 Univer s 15 mg 4-05 tablet by ity of tablet 13:09: mouth in [place] [address] the Medical morning. Branch dextrometho 3-0 Yes 5mL 5 mL, Unive rs rphan-guaif 4-04 Oral, QHS, it y of enesin 02:00: First dose [place] (ROBITUSSIN 00 on Fri Medica l DM) 1008/19/22 at Bran ch mg/5 mL 2099, solution 5 Until mL Discontinu ed, Routine melatonin 3-0 Yes 3mg 3 mg, Univers (MELATIN) 4-04 Oral, QHS, ity of tablet 3 mg 02:00: First dose Fri Medical 08/19/22 at Branch 2100, Until Discontinu ed, Routine dextrometho 3-0 Yes 5mL 5 mL, Unive rs rphan-guaif 4-04 Oral, QHS, it y of enesin 02:00: First dose [place] (ROBITUSSIN 00 on Fri Medica l DM) 10-100 08/19/22 at Bran ch mg/5 mL 2100, solution 5 Until mL Discontinu ed, Routine melatonin 2022-0 Yes 3mg 3 mg, Univers (MELATIN) 04 Oral, QHS, ity of tablet 3 mg 02:00: First dose [place] 00 on Mon Medical 08/19/22 at Branch 2100, Until Discontinu ed, Routine benzonatate 0 Yes 100mg 100 mg, Un cassy (TESSALON 03 Oral, ity of PERLES) 14:58: Q8HPRN, [place] capsule 100 05 Starting Medi inocencio mg on Mon Branch 08/19/22 at 0958, Until Discontinu ed, Routine, Cough benzonatate 2022-0 Yes 100mg 100 mg, Un cassy (TESSALON 03 Oral, ity of PERLES) 14:58: Q8HPRN, [place] capsule 100 05 Starting Medi inocencio mg on Mon Branch 08/19/22 at 0958, Until Discontinu ed, Routine, Cough enoxaparin Yes 40mg 40 mg, Unive rs (LOVENOX) 08-18 Subcutaneo ity of injection 14:00: [place], [place]ILY, [place] 40 mg 00 First dose [facility] 08/18/22 at 0900, Until Discontinu ed, Routine enoxaparin 2022- No 40mg 40 mg, Univ ers (LOVENOX) 08-1808 Subcutaneo ity of injection 14:00: 00:44 us, DAILY, [place] 40 mg 00 :12 First dose Medical on [facility] 08/18/22 at 0900, Until Discontinu ed, Routine iopamidol 2022- No [id number] 80mL 80 mL, U nivers (ISOVUE 08-17 Intravenou ity o f 370-500 mL) 11:13: 11:05 s, ONCE, 1 [place] injection 00 :00 dose, On Medica l 80 mL 08/17/22 Branch at 0615, Routine NaCl 0.9% Yes 10mL 10 mL, Univer s (NS) 3-31 Slow IV ity of injection 16:21: Push, PRN, [place] 10 mL 53 Starting Medical on Fri Branch 08/16/22 at 1121, Until Discontinu ed, Routine, line maintenanc e lidocaine 2022-0 Yes 5mL 5 mL, Univers 1% (PF) 08-16 Subcutaneo ity of (XYLOCAINE) 16:21: us, PRN, [place] injection 5 53 Starting Medi inocencio mL on Fri Branch 08/16/22 at 1121, Until Discontinu ed, Routine, Local anesthesia NaCl 0.9% 2022-0 Yes 10mL 10 mL, Univer s (NS) 08-16 Slow IV ity of injection 16:21: Push, PRN, [place] 10 mL 53 Starting Medical on Fri Branch 08/16/22 at 1121, Until Discontinu ed, Routine, line maintenanc e lidocaine 2022-0 Yes 5mL 5 mL, Univers 1% (PF) 08-16 Subcutaneo ity of (XYLOCAINE) 16:21: us, PRN, [place] injection 5 53 Starting Medi inocencio mL on Fri Branch 08/16/22 at 1121, Until Discontinu ed, Routine, Local anesthesia meloxicam 0 Yes 15mg 15 mg, Univer s (MOBIC) 08-16 Oral, ity of tablet 15 14:00: DAILY, [place] mg 00 First dose Medical on Fri Branch 08/16/22 at 0900, Until Discontinu ed, Routine meloxicam 0 Yes 15mg 15 mg, Univer s (MOBIC) 08-16 Oral, ity of tablet 15 14:00: DAILY, [place] mg 00 First dose Medical on Fri Branch 08/16/22 at 0900, Until Discontinu ed, Routine heparin 2022- No 5000U 5,000 Univers (porcine) 08-16 Units, ity of injection 13:00: 16:26 Subcutaneo [place] 5,000 Units 00 :27 us, Q12H, Med ical First dose Branch on Fri08/16/22 at 0800, Until Discontinu ed, Routine cefdinir 2022-0 2022- No 300mg 300 mg, Univ ers (OMNICEF) 08-16 Oral, ity of capsule 300 13:00: 20:39 Q12H, 10 [place] mg 00 :28 doses, Medical First dose Branch on Fri08/16/22 at 0800, Last dose on Fri08/20/22 at 2000, FUNMILAYO
Re ason for Anti-Infec tive: Empiric Therapy for Suspected Infection< br>Empiric Therapy Site: Respirator y
Durat ion of therapy: 5 days acetaminoph 2022-0 Yes 650mg 650 mg, Un cassy en 08-16 Oral, ity of (TYLENOL) 09:21: Q6HPRN, [place] tablet 650 11 Starting Medic al mg on Fri Branch 08/16/22 at 0421, Until Discontinu ed, Routine, Pain (scale 1-3) acetaminoph 2022-0 Yes 650mg 650 mg, Un cassy en 08-16 Oral, ity of (TYLENOL) 09:21: Q6HPRN, [place] tablet 650 11 Starting Medic al mg on Fri Branch 08/16/22 at 0421, Until Discontinu ed, Routine, Pain (scale 1-3) albuterol 0 Yes 1{puff} 1 Puff, Un cassy (VENTOLIN) 08-16 Inhalation ity of inhaler 1 09:16: , Q6HPRN, Luis Angel as Puff 52 Starting Medical on Fri Branch 08/16/22 at 0416, Until Discontinu ed, Shortness of Breath albuterol 0 Yes 1{puff} 1 Puff, Un cassy (VENTOLIN) 08-16 Inhalation ity of inhaler 1 09:16: , Q6HPRN, Luis Angel as Puff 52 Starting Medical on Fri Branch 08/16/22 at 0416, Until Discontinu ed, Shortness of Breath iopamidol 2022- No [id number] 65mL 65 mL, Univers (ISOVUE 08-16 Intravenou ity o f 370-500 mL) 04:00: 04:00 s, ONCE, 1 [place] injection 00 :00 dose, On Medica l 65 mL Rosemary Branch 08/15/22 at 2300, Routine dexamethaso 2022- No 10mg 10 mg, Uni vers ne sod phos 08-16 Slow IV ity of PF 02:15: 02:18 Push, [place] injection 00 :00 ONCE, 1 Medical 10 mg dose, On Branch [facility] 08/15/22 at 2115, 1 mL iopamidol 2022- No [id number] 65mL 65 mL, Univers (ISOVUE 08-15 Intravenou ity o f 370-500 mL) 23:24: 23:24 s, ONCE, 1 [place] injection 00 :00 dose, On Medica l 65 mL [place] Branch 08/15/22 at 1845, Routine ondansetron 2022- No 4mg 4 mg, Slow Univers (ZOFRAN 08-15 IV Push, ity of (PF)) 22:45: 22:54 ONCE, 1 [place] injection 4 00 :00 dose, On Medi inocencio mg [place] Branch 08/15/22 at 1745, FUNMILAYO dexamethaso 2021-05- No 10mg 10 mg, Uni vers ne sod phos 2-17 - Oral, ity of PF 20:00: 20:20 ONCE, 1 [place] injection 00 :00 dose, On Medica l 10 mg Sat Branch 05/04/22 at 1400, 1 mL diazePAM 2021-05- No 5mg 5 mg, Univers (VALIUM) -17 05-04 Oral, ity of tablet 5 mg 20:00: 20:20 ONCE, 1 [place] 00 :[place] dose, On Medical Sat Branch 05/04/22 at 1400, FUNMILAYO cyclobenzap 2021-05 Yes [id number] 10mg Take 1 Univers rine 10 mg 2-17 tablet by ity of tablet 00:00: mouth 3 [place] 00 (three) Medical times Branch daily as needed for Muscle Spasms. cyclobenzap 2021-05 Yes [id number] 10mg Take 1 Univers rine 10 mg 2-17 tablet by ity of tablet 00:00: mouth 3 [place] 00 (three) Medical times Branch daily as needed for Muscle Spasms. cyclobenzap 2021-05 Yes [id number] 10mg Take 1 Univers rine 10 mg 2-17 tablet by ity of tablet 00:00: mouth 3 [place] 00 (three) Medical times Branch daily as needed for Muscle Spasms. cyclobenzap 2021-05 Yes [id number] 10mg Take 1 Univers rine 10 mg 2-17 tablet by ity of tablet 00:00: mouth 3 [place] 00 (three) Medical times Branch daily as needed for Muscle Spasms. cyclobenzap 2021-05 Yes [id number] 10mg Take 1 Univers rine 10 mg 2-17 tablet by ity of tablet 00:00: mouth 3 00 (three) Medical times Branch daily as needed for Muscle Spasms. cyclobenzap 2021-05 Yes [id number] 10mg Take 1 Univers rine 10 mg 2-17 tablet by ity of tablet 00:00: mouth 3 00 (three) Medical times Branch daily as needed for Muscle Spasms. cyclobenzap 2021-05 Yes [id number] 10mg Take 1 Univers rine 10 mg 2-17 tablet by ity of tablet 00:00: mouth 3 00 (three) Medical times Branch daily as needed for Muscle Spasms. cyclobenzap 2021-05 Yes [id number] 10mg Take 1 Univers rine 10 mg 2-17 tablet by ity of tablet 00:00: mouth 3 00 (three) Medical times Branch daily as needed for Muscle Spasms. cyclobenzap 2021-05 Yes [id number] 10mg Take 1 Univers rine 10 mg 2-17 tablet by ity of tablet 00:00: mouth 3 00 (three) Medical times Branch daily as needed for Muscle Spasms. cyclobenzap 2021-05 Yes [id number] 10mg Take 1 Univers rine 10 mg 2-17 tablet by ity of tablet 00:00: mouth 3 00 (three) Medical times Branch daily as needed for Muscle Spasms. cyclobenzap 2021-05 Yes [id number] 10mg Take 1 Univers rine 10 mg 2-17 tablet by ity of tablet 00:00: mouth 3 (three) Medical times Branch daily as needed for Muscle Spasms. cyclobenzap 2021-05 Yes [id number] 10mg Take 1 Univers rine 10 mg 2-17 tablet by ity of tablet 00:00: mouth 3 00 (three) Medical times Branch daily as needed for Muscle Spasms. vitamin 2017-0 Yes 1000ug Take 1 Univer s B-12 2-27 tablet by ity of (VITAMIN 00:00: mouth [place] B-12) 1,000 00 daily. Medica l mcg tablet Branch vitamin 2017-0 Yes 1000ug Take 1 Univer s B-12 2-27 tablet by ity of (VITAMIN 00:00: mouth [place] B-12) 1,000 00 daily. Medica l mcg tablet Branch vitamin 2017-0 Yes 1000ug Take 1 Univer s B-12 2-27 tablet by ity of (VITAMIN 00:00: mouth [place] B-12) 1,000 00 daily. Medica l mcg tablet Branch vitamin 2017-0 Yes 1000ug Take 1 Univer s B-12 2-27 tablet by ity of (VITAMIN 00:00: mouth [place] B-12) 1,000 00 daily. Medica l mcg tablet Branch vitamin 2017-0 Yes 1000ug Take 1 Univer s B-12 2-27 tablet by ity of (VITAMIN 00:00: mouth [place] B-12) 1,000 00 daily. Medica l mcg tablet Branch vitamin 2017-0 Yes 1000ug Take 1 Univer s B-12 2-27 tablet by ity of (VITAMIN 00:00: mouth [place] B-12) 1,000 00 daily. Medica l mcg tablet Branch vitamin 2017-0 Yes 1000ug Take 1 Univer s B-12 2-27 tablet by ity of (VITAMIN 00:00: mouth [place] B-12) 1,000 00 daily. Medica l mcg tablet Branch vitamin 2017-0 Yes 1000ug Take 1 Univer s B-12 2-27 tablet by ity of (VITAMIN 00:00: mouth [place] B-12) 1,000 00 daily. Medica l mcg tablet Branch vitamin [id number] Yes 1000ug Take 1 Univer s B-12 2-27 tablet by ity of (VITAMIN 00:00: mouth [place] B-12) 1,000 00 daily. Medica l mcg tablet Branch vitamin 2017-0 Yes 1000ug Take 1 Univer s B-12 2-27 tablet by ity of (VITAMIN 00:00: mouth [place] B-12) 1,000 00 daily. Medica l mcg tablet Branch vitamin 2017-0 Yes 1000ug Take 1 Univer s B-12 2-27 tablet by ity of (VITAMIN 00:00: mouth [place] B-12) 1,000 00 daily. Medica l mcg tablet Branch vitamin 2017-0 Yes 1000ug Take 1 Univer s B-12 2-27 tablet by ity of (VITAMIN 00:00: mouth [place] B-12) 1,000 00 daily. Medica l mcg tablet Branch vitamin 2017-0 Yes 1000ug Take 1 Univer s B-12 2-27 tablet by ity of (VITAMIN 00:00: mouth [place] B-12) 1,000 00 daily. Medica l mcg tablet Branch meclizine Yes [id number] 25mg Take 1 Un cassy 25 mg 2-08 tablet by ity of tablet 00:00: mouth 3 [place] 00 (three) Medical times Branch daily as needed for Dizziness. meclizine Yes [id number] 25mg Take 1 Un cassy 25 mg 2-08 tablet by ity of tablet 00:00: mouth 3 [place] 00 (three) Medical times Branch daily as needed for Dizziness. meclizine 2022- No [id number] 25mg Take 1 U nivers 25 mg 2-08 -31 tablet by ity of tablet 00:00: 00:00 mouth 3 [place] 00 :00 (three) Medical times Branch daily as needed for Dizziness. meclizine 2022- No [id number] 25mg Take 1 U nivers 25 mg 2-08 -31 tablet by ity of tablet 00:00: 00:00 mouth 3 [place] 00 :00 (three) Medical times Branch daily as needed for Dizziness. meclizine 2022- No [id number] 25mg Take 1 U nivers 25 mg 2-08 -31 tablet by ity of tablet 00:00: 00:00 mouth 3 [place] 00 :00 (three) Medical times Branch daily as needed for Dizziness. Vital Signs Vital Name Observation Time Observation Value Comments Source Systolic blood 2022-08-24 17:32:00 153 mm[Hg] Univer sity of pressure [facility] Diastolic blood 2022-08-24 17:32:00 80 [facility] 2022-08-24 17:32:00 95 /min [facility] Body temperature 2022-08-24 17:32:00 37.17 [facility] 2022-08-24 17:32:00 18 /min [facility] Oxygen saturation in 2022-08-24 12:40:00 99 /min [facility] Arterial blood by [facility] Pulse oximetry Branch Body height 2022-08-23 15:16:00 175.3 cm [facility] [place] [facility] Body weight 2022-08-23 15:16:00 88.451 kg [facility] [place] [facility] BMI 2022-08-23 15:16:00 28.80 kg/m2 [facility] [place] [facility] Systolic blood 2022-08-21 12:17:00 143 mm[Hg] Univer sity of pressure [place] [facility] Diastolic blood 2022-08-21 12:17:00 88 mm[Hg] Unive rsity of pressure [place] [facility] Heart rate 2022-08-21 12:17:00 98 /min [facility] [place] [facility] Body temperature 2022-08-21 12:17:00 36.5 Zulma Univ ersity of [place] [facility] Respiratory rate 2022-08-21 12:17:00 18 /min Univ ersity of [place] [facility] Oxygen saturation in 2022-08-21 12:17:00 93 /min University of Arterial blood by [facility] Pulse oximetry Branch Body height 2022-08-15 22:05:00 175.3 cm [facility] [place] [facility] Body weight 2022-08-15 22:05:00 88.542 kg [facility] [place] [facility] BMI 2022-08-15 22:05:00 28.83 kg/m2 [facility] [place] [facility] Systolic blood 2022-05-04 19:51:00 159 mm[Hg] Univer sity of pressure [place] [facility] Diastolic blood 2022-05-04 19:51:00 86 mm[Hg] Unive rsity of pressure [place] [facility] Heart rate 2022-05-04 19:51:00 86 /min [facility] [place] [facility] Body temperature 2022-05-04 19:51:00 37.39 Zulma Univ ersity [facility] [place] [facility] Respiratory rate 2022-05-04 19:51:00 18 /min Univ ersity of [place] [facility] Body height 2022-05-04 19:51:00 175.3 cm [facility] [place] [facility] Body weight 2022-05-04 19:51:00 83.462 kg [facility] [place] [facility] BMI 2022-05-04 19:51:00 27.17 kg/m2 [facility] [place] [facility] Oxygen saturation in 2022-05-04 19:51:00 99 /min University of Arterial blood by [place] Medi inocencio Pulse oximetry Branch Systolic blood 2022-09-25 16:18:00 143 mm[Hg] Univer sity of pressure [facility] Diastolic blood 2022-09-25 16:18:00 89 mm[Hg] Unive rsity of pressure [facility] Heart rate 2022-09-25 16:18:00 102 /min [facility]i [facility] of [facility] Body temperature 2022-09-25 16:18:00 37 Zulma Univ ersity of [facility] Respiratory rate 2022-09-25 16:18:00 19 /min Univ ersity of [facility] Body height 2022-09-25 16:18:00 170.1 cm [facility]i ty of [facility] Body weight 2022-09-25 16:18:00 87.3 kg [facility]i [facility] of [facility] BMI 2022-09-25 16:18:00 30.17 kg/m2 [facility] of [facility] Oxygen saturation in 2022-09-19 14:30:24 97 /min University of Arterial blood by [facility] Systolic blood 2022-08-24 17:32:00 153 mm[Hg] Univer sity of pressure [facility] Diastolic blood 2022-08-24 17:32:00 80 mm[Hg] Unive rsity of pressure [facility] Heart rate 2022-08-24 17:32:00 95 /min Universi ty of [facility] Body temperature 2022-08-24 17:32:00 37.17 Zulma Univ ersity of [facility] Respiratory rate 2022-08-24 17:32:00 18 /min Univ ersity of [facility] Oxygen saturation in 2022-08-24 12:40:00 99 /min University of Arterial blood by [facility] Pulse oximetry Branch Body height 2022-08-23 15:16:00 175.3 cm Universi ty of [facility] Body weight 2022-08-23 15:16:00 88.451 kg Universi ty of [facility] BMI 2022-08-23 15:16:00 28.80 kg/m2 Universi ty of [facility] Procedures Procedure Date / Time Performing Clinician Source Performed LACTATE DEHYDROGENASE 2022-09-25 15:41:00 [facility] [place] H[facility]ORIONIC 2022-09-25 14:29:08 Tu, [facility] GONADOTROPIN, QUALITATIVE, MD Nesha polanco [facility] ALBUMIN LEVEL 2022-09-25 14:26:32 Tu, [facility] [place] [facility] COMPREHENSIVE METABOLIC 2022-09-25 14:26:32 Tu, [facility] PANEL [facility] FREE THYROXINE 2022-09-25 14:26:32 Tu, [facility] [place] [facility] THYROID STIMULATING 2022-09-25 14:26:32 Tu, [facility] HORMONE [facility] MAGNESIUM LEVEL 2022-09-25 14:26:32 Tu, [facility] [place] [facility] URIC ACID 2022-09-25 14:26:32 Tu, [facility] [place] [facility] COMPLETE BLOOD COUNT W/ 2022-09-25 14:26:32 Tu, [facility] DIFFERENTIAL [facility] APTT 2022-09-25 14:26:32 Tu, [facility] [place] [facility] PROTHROMBIN TIME 2022-09-25 14:26:32 Tu, [facility] RESEARCH PROTOCOL [id number] 2022-09-25 14:26:32 Tu, [facility] GLUCOSE LEVEL 2022-09-25 14:26:32 Tu, [facility] [place] [facility] BLOOD UREA NITROGEN 2022-09-25 14:26:32 Tu, [facility] ELECTROLYTE PANEL 2022-09-25 14:26:32 Tu, [facility] SERUM CREATININE 2022-09-25 14:26:32 Tu, [facility] .GLOMERULAR FILTRATION 2022-09-25 14:26:32 Tu, [facility] RATE [facility] CALCIUM LEVEL TOTAL 2022-09-25 14:26:32 Tu, Mo[place] ALKALINE PHOSPHATASE 2022-09-25 14:26:32 Tu, Mojgan [facility] ity [facility] ALANINE AMINOTRANSFERASE 2022-09-25 14:26:32 Tu, [place] [facility] ASPARTATE AMINOTRANSFERASE 2022-09-25 14:26:32 Tu, [facility] TOTAL PROTEIN 2022-09-25 14:26:32 Tu, [facility] o f [facility] FRACTIONATED BILIRUBIN 2022-09-25 14:26:32 Tu, [facility] Results CBC 2022-09-25 14:26:32 [facility] MANUAL DIFFERENTIAL 2022-09-25 14:26:32 John, [place] [facility] AP IHC PD-L1 MATERIAL 2022-09-19 20:44:27 [facility], [facility] US HEAD NECK SOFT TISSUE 2022-09-19 14:55:00 Oliva Webster [facility] US FINE NEEDLE ASPIRATION 2022-09-19 14:55:00 Oliva Webster [facility] CYTOLOGY IMAGE-GUIDED FNA 2022-09-19 14:09:00 Oliva Webster [facility] [place] INTERPRETATION [facility] [facility] MRI BRAIN W WO CONTRAST 2022-09-16 16:00:00 Mojgan Lopez [facility] SPIROMETRY W/DILATORS, 2022-09-13 20:38:15 Britta [facility] DLCO AND BODY [facility] PLETHSMOGRAPHIC LUNG Center VOLUMES PETCT INITIAL TREATMENT 2022-09-13 17:28:52 Mojgan Lopez [facility] STRATEGY [facility] CT CHEST W CONTRAST 2022-09-13 14:42:34 Papito Larry [facility] AP IHC PD-L1 MATERIAL 2022-09-11 21:29:14 John, MojganFormerly [facility], [facility] REQUEST [facility] COMPLETE BLOOD COUNT W/ 2022-09-09 17:17:00 Tu, [facility] DIFFERENTIAL [facility] COMPREHENSIVE METABOLIC 2022-09-09 17:17:00 Tu, [facility] PANEL [facility] MAGNESIUM LEVEL 2022-09-09 17:17:00 Tu, [facility] LACTATE DEHYDROGENASE 2022-09-09 17:17:00 Tu, [facility] PROTHROMBIN TIME 2022-09-09 17:17:00 Tu, [facility] APTT 2022-09-09 17:17:00 Tu, [facility] HP LB BRAF MUTATION 2022-09-09 17:17:00 Tu, [facility] ANALYSIS COLLECTION, BLOOD [facility] HP LB EML4/ALK FUSION 2022-09-09 17:17:00 Tu, [facility] ANALYSIS COLLECTION, BLOOD [facility] HP LB ERBB2 FULL GENE 2022-09-09 17:17:00 Tu, [facility] MUTATION ANALYSIS [facility] COLLECTION, BLOOD Center HP LB MET MUTATION 2022-09-09 17:17:00 Tu, [facility] ANALYSIS COLLECTION, BLOOD [facility] HP LB RET FUSION ANALYSIS 2022-09-09 17:17:00 Tu, [facility] COLLECTION, BLOOD [facility] HP LB ROS1 FUSION ANALYSIS 2022-09-09 17:17:00 Tu, Mojgan Loya [facility] COLLECTION, BLOOD [facility] Results CBC 2022-09-09 17:17:00 Tu, [facility] MANUAL DIFFERENTIAL 2022-09-09 17:17:00 [facility], [facility] GLUCOSE LEVEL 2022-09-09 17:17:00 Tu, [facility] BLOOD UREA NITROGEN 2022-09-09 17:17:00 Tu, [facility] ELECTROLYTE PANEL 2022-09-09 17:17:00 Tu, [facility] SERUM CREATININE 2022-09-09 17:17:00 Tu, [facility] .GLOMERULAR FILTRATION 2022-09-09 17:17:00 Tu, Mojgan [facility] CALCIUM LEVEL TOTAL 2022-09-09 17:17:00 Tu, Mojgan [facility] ALBUMIN LEVEL 2022-09-09 17:17:00 Tu, [facility] ALKALINE PHOSPHATASE 2022-09-09 17:17:00 Tu, Mojgan [facility] ALANINE AMINOTRANSFERASE 2022-09-09 17:17:00 Tu, Mojgan [facility] ASPARTATE AMINOTRANSFERASE 2022-09-09 17:17:00 Tu, Mojgan [facility] TOTAL PROTEIN 2022-09-09 17:17:00 Tu, [facility] FRACTIONATED BILIRUBIN 2022-09-09 17:17:00 Tu, Mojgan [facility] HP LB LIQUID BIOPSY PANEL 2022-09-09 17:17:00 Tu, Mojgan Mccoy [facility] V1 INTERPRETATION AND MD Nadege domínguez Cancer REPORT Center NGS BLOOD CONTROL 2022-09-09 17:17:00 Tu, Mojgan [facility] BASIC METABOLIC PANEL (NA, 2022-08-24 11:10:00 Naomie Molina [facility] K, CL, CO2, GLUCOSE, BUN, Medica l Branch CREATININE, CA) EXTRA TUBE LAV 2022-08-24 11:10:00 Alicja [facility] BASIC METABOLIC PANEL (NA, 2022-08-24 11:10:00 Naomie Molina [facility] K, CL, CO2, GLUCOSE, BUN, Medica l Branch CREATININE, CA) EXTRA TUBE LAV 2022-08-24 11:10:00 Alicja [facility] XR CHEST 1 VW 2022-08-23 20:49:00 Jean [facility] XR CHEST 1 VW 2022-08-23 20:49:00 Jean [facility] OSI CATHETER PLACEMENT 2022-08-23 20:20:[address] [facility] OSI CHEST 2022-08-23 20:20:00 John [facility] ARTERIAL LINE 2022-08-23 16:31:00 [facility] INTUBATION 2022-08-23 15:55:00 Evelyn [facility] HB ABO GROUPING 2022-08-23 15:25:00 Jean [facility] HB ABO GROUPING 2022-08-23 15:25:00 Jean [facility] MAGNESIUM 2022-08-23 09:53:00 Fiorella [facility] BASIC METABOLIC PANEL (NA, 2022-08-23 09:53:00 Fiorella [facility] K, CL, CO2, GLUCOSE, BUN, Medica l Branch CREATININE, CA) CBC WITH DIFF 2022-08-23 09:53:00 Fiorella [facility] PROTHROMBIN TIME / INR 2022-08-23 09:53:00 Fiorella [facility] ACTIVATED PARTIAL THRMPLAS 2022-08-23 09:53:[address] [facility] BASIC METABOLIC PANEL (NA, 2022-08-23 09:53:00 Fiorella [facility] K, CL, CO2, GLUCOSE, BUN, [facility] CREATININE, CA) MAGNESIUM 2022-08-23 09:53:00 Fiorella [facility] CBC WITH DIFF 2022-08-23 09:53:00 Fiorella [facility] PROTHROMBIN TIME / INR 2022-08-23 09:53:00 Fiorella [facility] ACTIVATED PARTIAL THRMPLAS 2022-08-23 09:53:[address] [facility] BASIC METABOLIC PANEL (NA, 2022-08-22 10:03:00 Shaim, Naomie [facility] [place] K, CL, CO2, GLUCOSE, BUN, Medica l Branch CREATININE, CA) EXTRA TUBE LAV 2022-08-22 10:03:00 Helm [facility] BASIC METABOLIC PANEL (NA, 2022-08-22 10:03:00 Shaim, Naomie [facility] [place] K, CL, CO2, GLUCOSE, BUN, Medica l Branch CREATININE, CA) EXTRA TUBE LAV 2022-08-22 10:03:00 Helm [facility] BASIC METABOLIC PANEL (NA, 2022-08-22 10:03:00 Shaim, Naomie [facility] [place] K, CL, CO2, GLUCOSE, BUN, Medica [facility] Branch CREATININE, CA) EXTRA TUBE LAV 2022-08-22 10:03:00 Alicja [facility] XR CHEST 1 VW 2022-08-21 20:20:00 Blayne [facility] XR CHEST 1 VW 2022-08-21 20:20:00 Blayne [facility] XR CHEST 1 VW 2022-08-21 20:20:00 Blayne [facility] OSI CHEST 2022-08-21 20:20:00 Mojgan Lopez [facility] CYTO ORGAN ASPIRATION-FNA 2022-08-21 16:10:[address] [facility] CYTO ORGAN ASPIRATION-FNA 2022-08-21 16:10:00 Jack Webster [facility] FLEXIBLE BRONCHOSCOPY 2022-08-21 15:20:00 [facility] ENDOBRONCHIAL ULTRASOUND 2022-08-21 15:20:00 Jack Webster Uni vers[facility] FLEXIBLE BRONCHOSCOPY 2022-08-21 15:20:00 Jack Webster Univer sity [facility] ENDOBRONCHIAL ULTRASOUND 2022-08-21 15:20:00 Jack Webster Uni [facility] FLEXIBLE BRONCHOSCOPY 2022-08-21 15:20:[address] [facility] ENDOBRONCHIAL ULTRASOUND 2022-08-21 15:20:00 Jack Webster [facility] MAGNESIUM 2022-08-21 09:55:00 Miller Fernandez [facility] BASIC METABOLIC PANEL (NA, 2022-08-21 09:55:00 [facility], CL, CO2, GLUCOSE, BUN, Medica l Branch CREATININE, CA) CBC WITHOUT DIFF 2022-08-21 09:55:00 Miller Fernandez [facility] PROTHROMBIN TIME / INR 2022-08-21 09:55:00 [facility] ACTIVATED PARTIAL THRMPLAS 2022-08-21 09:55:[address] [facility] MAGNESIUM 2022-08-21 09:55:00 Miller Fernandez [facility] BASIC METABOLIC PANEL (NA, 2022-08-21 09:55:00 [facility] K, CL, CO2, GLUCOSE, BUN, Medica l Branch CREATININE, CA) CBC WITHOUT DIFF 2022-08-21 09:55:00 Miller Fernandez [facility] PROTHROMBIN TIME / INR 2022-08-21 09:55:00 Miller [facility] ACTIVATED PARTIAL THRMPLAS 2022-08-21 09:55:[address] [facility] CBC WITHOUT DIFF 2022-08-21 09:55:00 Miller Fernandez [facility] BASIC METABOLIC PANEL (NA, 2022-08-21 09:55:00 Miller Fernandez [facility] K, CL, CO2, GLUCOSE, BUN, Medica l Branch CREATININE, CA) MAGNESIUM 2022-08-21 09:55:00 Miller Fernandez [facility] PROTHROMBIN TIME / INR 2022-08-21 09:55:00 Miller Fernandez [facility] ACTIVATED PARTIAL THRMPLAS 2022-08-21 09:55:[address] [facility] PATHOLOGY OUTSIDE 2022-08-21 00:00:00 [facility] PHOSPHORUS 2022-08-19 10:46:00 Rebecca [facility] LACTATE DEHYDROGENASE 2022-08-19 10:46:00 Rebecca [facility] URIC ACID 2022-08-19 10:46:00 Rebecca [facility] MAGNESIUM 2022-08-19 10:46:00 Fernandez, [facility] COMP. METABOLIC PANEL 2022-08-19 10:46:00 Rebecca [facility] ([id number]) [facility] CBC WITH DIFF 2022-08-19 10:46:00 Rebecca [facility] PHOSPHORUS 2022-08-19 10:46:00 Rebecca [facility] LACTATE DEHYDROGENASE 2022-08-19 10:46:00 Rebecca [facility] URIC ACID 2022-08-19 10:46:00 Rebecca [facility] MAGNESIUM 2022-08-19 10:46:00 Fernandez, [facility] COMP. METABOLIC PANEL 2022-08-19 10:46:00 Rebecca [facility] ([id number]) [facility] CBC WITH DIFF 2022-08-19 10:46:00 Rebecca [facility] COMP. METABOLIC PANEL 2022-08-19 10:46:00 Rebecca [facility] ([id number]) [facility] CBC WITH DIFF 2022-08-19 10:46:00 Rebecca [facility] MAGNESIUM 2022-08-19 10:46:00 Rebecca [facility] PHOSPHORUS 2022-08-19 10:46:00 Rebecca [facility] LACTATE DEHYDROGENASE 2022-08-19 10:46:00 Rebecca [facility] URIC ACID 2022-08-19 10:46:00 Rebecca [facility] OSI CT ABDOMEN AND PELVIS 2022-08-17 20:19:00 [facility] CT ABDOMEN PELVIS W 2022-08-17 11:13:32 Miller Fernandez [facility] CONTRAST Medical Branch CT ABDOMEN PELVIS W 2022-08-17 11:13:32 Miller Fernandez [facility] CONTRAST Medical Branch CT ABDOMEN PELVIS W 2022-08-17 11:13:32 Miller Fernandez [facility] CONTRAST [facility] MAGNESIUM 2022-08-17 10:14:00 Rebecca [facility] BASIC METABOLIC PANEL (NA, 2022-08-17 10:14:00 Miller Fernandez [facility] K, CL, CO2, GLUCOSE, BUN, Medica l Branch CREATININE, CA) CBC WITHOUT DIFF 2022-08-17 10:14:00 Rebecca [facility] MAGNESIUM 2022-08-17 10:14:00 Rebecca [facility] BASIC METABOLIC PANEL (NA, 2022-08-17 10:14:00 Miller Fernandez [facility] K, CL, CO2, GLUCOSE, BUN, Medica l Branch CREATININE, CA) CBC WITHOUT DIFF 2022-08-17 10:14:00 Rebecca [facility] CBC WITHOUT DIFF 2022-08-17 10:14:00 Rebecca [facility] BASIC METABOLIC PANEL (NA, 2022-08-17 10:14:00 Miller Fernandez [facility] K, CL, CO2, GLUCOSE, BUN, Medica l Branch CREATININE, CA) MAGNESIUM 2022-08-17 10:14:00 Rebecca [facility] PHOSPHORUS 2022-08-16 18:42:00 Rebecca [facility] LACTATE DEHYDROGENASE 2022-08-16 18:42:00 Miller Fernandez [facility] URIC ACID 2022-08-16 18:42:00 Rebecca [facility] MAGNESIUM 2022-08-16 18:42:00 Rebecca [facility] COMP. METABOLIC PANEL 2022-08-16 18:42:00 Miller Fernandez [facility] ([id number]) [facility] ALPHA FETOPROTEIN 2022-08-16 18:42:00 Miller Fernandez [facility] TOTAL BETA HCG ASSAY 2022-08-16 18:42:00 Miller Fernandez [facility] CBC WITH DIFF 2022-08-16 18:42:00 Miller Fernandez [facility] G6PD SCREENING TEST 2022-08-16 18:42:00 Miller Fernandez [facility] HEPATITIS B SURFACE 2022-08-16 18:42:00 Miller Fernandez [facility] ANTIBODY [facility] HEPATITIS B SURFACE 2022-08-16 18:42:00 Miller Fernandez [facility] ANTIGEN [facility] HCV ANTIBODY 2022-08-16 18:42:00 Rebecca Miller [facility] HEPATITIS B CORE ANTIBODY 2022-08-16 18:42:00 Miller Fernandez [facility] IGM [facility] HEPATITIS C VIRUS (HCV) BY 2022-08-16 18:42:00 Miller Fernandez [facility] QUANTITATIVE NAAT [facility] HIV 1/2 AG-AB WITH REFLEX 2022-08-16 18:42:00 Miller Fernandez [facility] PHOSPHORUS 2022-08-16 18:42:00 Miller Fernandez [facility] LACTATE DEHYDROGENASE 2022-08-16 18:42:00 Miller Fernandez [facility] URIC ACID 2022-08-16 18:42:00 Miller Fernandez [facility] MAGNESIUM 2022-08-16 18:42:00 Miller Fernandez [facility] COMP. METABOLIC PANEL 2022-08-16 18:42:00 Miller Fernandez [facility] ([id number]) [facility] ALPHA FETOPROTEIN 2022-08-16 18:42:00 Miller Fernandez [facility] TOTAL BETA HCG ASSAY 2022-08-16 18:42:00 Miller Fernandez [facility] CBC WITH DIFF 2022-08-16 18:42:00 Miller Fernandez [facility] G6PD SCREENING TEST 2022-08-16 18:42:00 Miller Fernandez [facility] HEPATITIS B SURFACE 2022-08-16 18:42:00 Miller Fernandez [facility] ANTIBODY [facility] HEPATITIS B SURFACE 2022-08-16 18:42:00 Miller Fernandez [facility] ANTIGEN [facility] HCV ANTIBODY 2022-08-16 18:42:00 Miller Fernandez [facility] HEPATITIS B CORE ANTIBODY 2022-08-16 18:42:00 [facility] HEPATITIS C VIRUS (HCV) BY 2022-08-16 18:42:00 Miller [facility]ANTITATIVE [facility] HIV 1/2 AG-AB WITH REFLEX 2022-08-16 18:42:00 Miller Fernandez [facility] LACTATE DEHYDROGENASE 2022-08-16 18:42:00 Miller Fernandez [facility] ALPHA FETOPROTEIN 2022-08-16 18:42:00 Miller Fernandez [facility] TOTAL BETA HCG ASSAY 2022-08-16 18:42:00 Miller Fernandez [facility] COMP. METABOLIC PANEL 2022-08-16 18:42:00 Miller Fernandez [facility] ([id number]) [facility] CBC WITH DIFF 2022-08-16 18:42:00 Miller Fernandez [facility] MAGNESIUM 2022-08-16 18:42:00 Miller Fernandez [facility] PHOSPHORUS 2022-08-16 18:42:00 Miller Fernandez [facility] URIC ACID 2022-08-16 18:42:00 Miller Fernandez [facility] G6PD SCREENING TEST 2022-08-16 18:42:00 Miller Fernandez [facility] HIV 1/2 AG-AB WITH REFLEX 2022-08-16 18:42:00 Miller [facility] 2022-08-16 18:42:00 Miller Fernandez [facility] ANTIBODY [facility] HEPATITIS B SURFACE 2022-08-16 18:42:00 Miller Fernandez [facility] ANTIGEN [facility] HCV ANTIBODY 2022-08-16 18:42:00 [facility] CORE [facility]TIBODY 2022-08-16 18:42:00 Miller [facility] IGM [facility] HEPATITIS C VIRUS (HCV) BY 2022-08-16 18:42:00 [facility]IN 2022-08-16 18:06:00 Miller Fernandez [facility] PROCALCITONIN 2022-08-16 18:06:00 Rebecca [facility] PROCALCITONIN 2022-08-16 18:06:00 Rebecca [facility] CT THORAX W CONTRAST 2022-08-16 03:20:09 Troy Rubalcava [facility] CT THORAX W CONTRAST 2022-08-16 03:20:09 Troy Rubalcava [facility] CT THORAX W CONTRAST 2022-08-16 03:20:09 Troy Rubalcava [facility] XR CHEST 2 2022-08-15 23:38:37 Troy Rubalcava [facility] XR CHEST 2 2022-08-15 23:38:37 Troy Rubalcava [facility] XR CHEST 2 2022-08-15 23:38:37 Troy Rubalcava [facility] CT MAXILLOFACIAL/MANDIBLE 2022-08-15 23:34:00 Troy Rubalcava [facility] CONTRAST [facility] CT SOFT TISSUE NECK W 2022-08-15 23:34:00 Troy Rubalcava [facility] CT MAXILLOFACIAL/MANDIBLE 2022-08-15 23:34:00 Troy Rubalcava [facility] CONTRAST [facility] CT SOFT TISSUE NECK W 2022-08-15 23:34:00 Troy Rubalcava [facility] CONTRAST Medical Branch CT SOFT TISSUE NECK W 2022-08-15 23:34:00 Troy Rubalcava [facility] CONTRAST Medical Branch CT MAXILLOFACIAL/MANDIBLE 2022-08-15 23:34:00 [facility] COMP. METABOLIC PANEL 2022-08-15 22:53:00 Troy Rubalcava [facility] ([id number]) Medical Branch CBC WITH DIFF 2022-08-15 22:53:00 Troy Rubalcava [facility] COMP. METABOLIC PANEL 2022-08-15 22:53:00 Troy Rubalcava [facility] ([id number]) Medical Branch CBC WITH DIFF 2022-08-15 22:53:00 Troy Rubalcava [facility] CBC WITH DIFF 2022-08-15 22:53:00 Troy Rubalcava [facility] COMP. METABOLIC PANEL 2022-08-15 22:53:00 Troy Rubalcava [facility] ([id number]) Medical Branch CONSENT/REFUSAL FOR 2022-08-15 21:55:00 Doctor Unassigned, [facility] DIAGNOSIS AND TREATMENT [facility] CONSENT/REFUSAL FOR 2022-08-15 21:55:00 Doctor Unassigned, [facility] DIAGNOSIS AND TREATMENT [facility] CONSENT/REFUSAL FOR 2022-08-15 21:55:00 Doctor Unassjacquie, [facility] DIAGNOSIS AND TREATMENT [facility] OSI CT CHEST 2022-08-15 20:32:00 Mojgan Lopez [facility] OSI CT SFT TISS NECK 2022-08-15 20:31:00 Mojgan Lopez [facility] OSI CT MAXILLOFACIAL AREA 2022-08-15 20:31:[address] [facility] OSI CHEST 2022-08-15 20:18:00 John [facility] HOSPITAL ADMISSION 2022-08-15 05:01:00 Doctor Mendoza [facility] Name Medical Branch HOSPITAL ADMISSION 2022-08-15 05:01:00 Doctor Carleyssigned [facility] HOSPITAL ADMISSION 2022-08-15 05:01:00 Doctor Mendoza [facility] Name [facility] NOTICE OF PRIVACY 2022-05-04 19:46:43 Doctor Mendoza, [facility] PRACTICES [facility] CONSENT/REFUSAL FOR 2022-05-04 19:45:29 Doctor Mendoza, [facility] DIAGNOSIS AND TREATMENT [facility] Plan of Care Planned Activity Planned Date Details Comments Source Future Scheduled 2022-10-05 COVID-19 Vaccination [facility] Test 20:38:10 (#1) [code = COVID-19 MD And edg[facility] Vaccination (#1)] Center Encounters Start End Encounter Admission Attending Care Care Encounter Source Date/Time Date/Time Type Type Clinicians Facility Department ID 2022-10-01 Outpatient Malik, [facility] [id number] Common 10:08:01 [facility] [id number] [place] 2022-09-18 Outpatient MDA MDA [id number] 10:22:43 Nadege domínguez 2022-08-16 Outpatient DEBORAH SANDHU [facility] [id number] Univers 11:41:10 DEBORAH SANDHU [facility] 2022-04-29 [facility] [id number] Common 14:18:03 [address] [place] [facility] 2022-10-05 2022-10-05 Nurse Edmundo, 1.2.840.1 [id number] Univers 00:00:00 00:00:00 Triage Rosa 04482.1.1 ity of 3.412.2.7 [place] .3Randy264186 .8 [facility] 2022-10-03 2022-10-03 Telephone Parker, 1.2.840.1 [id number] Univers 00:00:00 00:00:00 Nicole 26761.1.1 ity of 3.412.2.7 [place] .3Randy256915 .8 [facility] 2022-09-25 2022-09-25 Infusion Mojgan Lopez 1.2.840.1 [id number] Univers 15:30:00 15:30:00 Rosario Khanna 86048.1.1 ity of 3.412.2.7 [place] .3.950104 MD Padilla8 [facility] 2022-09-25 2022-09-25 Outpatient MOJGAN LOPEZ [facility] [id number] [place] 10:51:32 13:19:02 [facility] 2022-09-25 2022-09-25 Outpatient MOJGAN LOPEZ [facility] [id number] 09:28:41 11:12:56 [facility] 2022-09-25 2022-09-25 Follow-Up Mojgan Lopez 1.2.840.1 [id number] Univers 09:00:00 11:12:56 71797.1.1 ity of 3.412.2.7 [place] .3.008663 MD Padilla8 [facility] 2022-09-25 2022-09-25 Outpatient MOJGAN LOPEZ [facility] [id number] [place] 09:00:44 09:27:24 [facility] 2022-09-25 2022-09-25 Travel 1.2.840.1 [id number] Univers 00:00:00 00:00:00 28496.1.1 350.1.13.41 ity of 3.412.2.7 [place].3.698 [place] .3.253217 084.8 MD [place] [facility] 2022-09-24 2022-09-24 Orders J Carlos, 1.2.840.1 [id number] Univers 00:00:00 00:00:00 Only Serafin 03723.1.1 i ty of A 3.412.2.7 [place] .3.902218 MD [place] [facility] 2022-09-24 2022-09-24 Orders Lai, 1.2.840.1 [id number] Univers 00:00:00 00:00:00 Only Kaykay 00368.1.1 ity of 3.412.2.7 [place] .3.260436 MD Padilla8 [facility] 2022-09-23 2022-09-23 Orders Patricio, 1.2.840.1 [id number] Univers 00:00:00 00:00:00 Only Stewart Dupont 60271.1.1 ity of 3.412.2.7 [place] .3.415777 MD Padilla8 [facility] 2022-09-20 2022-09-20 Orders J Carlos, 1.2.840.1 [id number] Univers 00:00:00 00:00:00 Only Serafin 80361.1.1 i ty of A 3.412.2.7 [place] .3.255074 MD Padilla8 [facility] 2022-09-19 2022-09-19 Ryan Webster 1.2.840.1 [id number] Univers 08:15:00 10:15:00 Procedure Oliva 14385.1.1 it y of 3.412.2.7 [place] .3.813886 MD [place] [facility] 2022-09-19 2022-09-19 Outpatient YE WEBSTER [facility] [id number] 07:20:41 07:20:[address] [facility] 2022-09-19 2022-09-19 Meghan Hoyt 1.2.840.1 [id number] Univers 00:00:00 00:00:00 Kaykay 18400.1.1 ity of 3.412.2.7 [place] .3.702517 MD [place] [facility] 2022-09-19 2022-09-19 Ирина Hoyt 1.2.840.1 [id number] Univers 00:00:00 00:00:00 Only Kaykay 96089.1.1 ity of 3.412.2.7 [place] .3.934698 MD [place] [facility] 2022-09-19 2022-09-19 Papito Richardson 1.2.840.1 [id number] Univers 00:00:00 00:00:00 Only 45320.1.1 ity of 3.412.2.7 [place] .3.998768 MD Padilla8 [facility] 2022-09-19 2022-09-19 Travel 1.2.840.1 [id number] Univers 00:00:00 00:00:00 75334.1.1 350.1.13.41 ity of 3.412.2.[place].3.698 [place] .3.818874 084.8 MD Padilla8 [facility] 2022-09-18 2022-09-18 Follow-Up Mojgan Lopez 1.2.840.[id number] [facility] [facility] 13:45:00 14:11:55 15982.1.1 ity of 3.412.2.7 [place] .3.386711 MD Padilla8 [facility] 2022-09-18 2022-09-18 Outpatient YE JOHN MOJGAN [facility] MDA [id number] 11:05:57 14:11:55 Nicanor domínguez 2022-09-18 2022-09-18 Outpatient YE WEBSTER MDA MDA [id number] 13:13:43 13:13:43 OLIVA domínguez 2022-09-18 2022-09-18 Katrina Webster 1.2.840.[id number] [facility] 10:30:00 10:56:40 Oliva 47687.1.1 ity of 3.412.2.7 [place] .3.816528 MD Padilla8 [facility] 2022-09-18 2022-09-18 Outpatient YE WEBSTER MDA MDA [id number] 09:42:16 10:56:40 OLIVA domínguez 2022-09-18 2022-09-18 Documentat Luz 1.2.840.1 [id number] Univers 00:00:00 00:00:00 ion Oliva 88430.1.1 ity of 3.412.2.7 [place] .3.640415 MD [place] [facility] 2022-09-18 2022-09-18 [facility] Mojgan Lopez 1.2.840.1 [id number] [id number] Univers 00:00:00 00:00:00 Only 54043.1.1 ity of 3.412.2.7 [place] .3.399790 MD Padilla8 [facility] 2022-09-18 2022-09-18 Ирина Webster 1.2.840.1 [id number] Univers 00:00:00 00:00:00 Only Oliva 75408.1.1 ity of 3.412.2.7 [place] .3.717660 MD Padilla8 [facility] 2022-09-18 2022-09-18 [facility] 1.2.840.1 1.2.070.586 4897 [id number] Univers 00:00:00 00:00:00 36052.1.1 350.1.13.41 ity of 3.412.2.7 [place].3.698 [place] .3.484337 084.8 MD [place] [facility] 2022-09-17 2022-09-17 Papito Richardson 1.2.840.1 [id number] Univers 00:00:00 00:00:00 Only 16475.1.1 ity of 3.412.2.7 [place] .3.550372 MD [place] [facility] 2022-09-16 2022-09-16 Outpatient MOJGAN LOPEZ [facility] [id number] 08:15:00 23:59:00 [facility] 2022-09-16 2022-09-16 [facility] Mojgan Lopez 1.2.840.1 [id number] Univers 08:15:00 23:59:00 Encounter Buffy Serrano 00822.1.1 it[place] of [place] .[place].1100[place] [facility] 2022-09-16 2022-09-16 Anesthesia Zach 1.2.840.1 [id number] Univers 09:43:00 11:10:00 Event Buffy 05424.1.1 ity of 3.412.2.7 [place] .3.923774 MD [place] [facility] 2022-09-16 2022-09-16 Orders Micki, 1.2.840.1 [id number] Univers 00:00:00 00:00:00 Only Britta Shay 55820.1.1 i ty of 3.412.2.7 [place] .3.376889 MD [place] [facility] 2022-09-16 2022-09-16 Travel 1.2.840.1 1.2.312.369 [id number] [id number] Univers 00:00:00 00:00:00 79313.1.1 350.1.13.41 ity of 3.412.2.7 2.[place].3.698 [place]3.4550[place] 084.8 MD [place] [facility] 2022-09-13 2022-09-13 [facility] David, 1.2.840.1 [id number] Univers 23:59:59 23:59:59 Event Paulette 49263.1.1 ity of 3.412.2.7 [place] .3.748626 MD [place] [facility] 2022-09-13 2022-09-13 Outpatient EL MICKI, [facility] MDA [id number] 13:33:14 23:59:00 BRITTA Weathers [facility] 2022-09-13 2022-09-13 Hospital Micki, 1.2.840.1 [id number] Univers 13:33:14 23:59:00 Encounter Britta M 20779.1.1 ity of 3.412.2.7 [place] .3.419690 MD [place] [facility] 2022-09-13 2022-09-13 Mojgan Snyder 1.2.840.1 [id number] Univers 16:30:00 17:00:00 Appointmen 71730.1.1 i ty of ts 3.412.2.7 [place] .3.578071 MD [facility] 2022-09-13 2022-09-13 [facility] Mojgan Lopez 1.2.840.1 [id number] Univers 13:15:00 15:00:00 Procedure 69694.1.1 it y of 3.412.2.7 [place] .3.733892 MD [facility] 2022-09-13 2022-09-13 Outpatient PAPITO LARRY [facility] [id number] [place] 08:25:43 13:32:00 Nicanorakash domínguez 2022-09-13 2022-09-13 [facility] Papito Larry 1.2.840.[id number] [facility] 08:25:43 13:32:00 Encounter 62625.1.1 it y of 3.412.2.7 [place] .3.237720 MD [facility] 2022-09-13 2022-09-13 [facility] Mojgan Lopez 1.2.840.[id number] [facility] 10:30:00 13:00:00 Procedure 75315.1.1 it y of 3.412.2.7 [place] .3.760684 MD [facility] 2022-09-13 2022-09-13 Outpatient MOJGAN FLANAGAN MDA [facility] [id number] 09:56:44 09:56:44 Nicanor domínguez 2022-09-13 2022-09-13 Outpatient MOJGAN FLANAGAN MDA [facility] [id number] 00:00:00 00:00:00 Nicanor domínguez 2022-09-13 2022-09-13 [facility] Mojgan Lopez 1.2.840.[id number] [facility] 00:00:00 00:00:00 Only 07053.1.1 ity of 3.412.2.7 [place] .3.312196 MD [place] [facility] 2022-09-13 2022-09-13 [facility] 1.2.840.[id number] [facility] 00:00:00 00:00:00 47558.1.1 350.1.13.41 ity of 3.412.2.7 [place]7.3.698 [place]3.704675 084.8 .8 [facility] 2022-09-09 2022-09-09 Ancillary , Mojgan 1.2.840.1 [id number] Univers 20:35:00 20:40:00 Procedure 80258.1.1 it y of 3.412.2.7 [place] .3.802804 .8 [facility] 2022-09-09 2022-09-09 Ancillary , Mojgan 1.2.840.1 [id number] Univers 20:30:00 20:35:00 Procedure 37239.1.1 it y of 3.412.2.7 [place] .3.990001 MD Padilla8 [facility] 2022-09-09 2022-09-09 Ancillary , Mojgan 1.2.840.1 [id number] Univers 20:25:00 20:30:00 Procedure 24743.1.1 it y of 3.412.2.7 [place] .3.585227 .8 [facility] 2022-09-09 2022-09-09 Ancillary , Mojgan 1.2.840.1 [id number] Univers 20:20:00 20:25:00 Procedure 51126.1.1 it y of 3.412.2.7 [place] .3.966043 .8 [facility] 2022-09-09 2022-09-09 Ancillary , Mojgan 1.2.840.1 [id number] Univers 20:15:00 20:20:00 Procedure 58904.1.1 it y of 3.412.2.7 [place] .3.009816 MD Padilla8 [facility] 2022-09-09 2022-09-09 Ancillary , Mojgan 1.2.840.1 [id number] 11 [id number] Univers 20:10:00 20:15:00 Procedure 68020.1.1 it y of 3.412.2.7 [place] .3.309012 MD .8 [facility] 2022-09-09 2022-09-09 Ancillary Mojgan Lopez 1.2.840.1 [id number] Univers 20:05:00 20:10:00 Procedure 84187.1.1 it y of 3.412.2.7 [place] .3.547210 MD .8 [facility] 2022-09-09 2022-09-09 Ancillary Mojgan Lopez 1.2.840.1 [id number] Univers 20:00:00 20:05:00 Procedure 20226.1.1 it y of 3.412.2.7 [place] .3.018285 MD .8 [facility] 2022-09-09 2022-09-09 Outpatient MOJGAN LOPEZ MDA MDA [id number] 15:13:35 15:13:35 Nicanor o n 2022-09-09 2022-09-09 [id number] 15:13:32 15:13:32 Nicanor o n 2022-09-09 2022-09-09 [facility] [id number] MD 15:13:28 15:13:28 Nicanor o n 2022-09-09 2022-09-09 Outpatient MOJGAN LOPEZ MDA MDA [id number] 15:11:09 15:11:09 Nicanor o n 2022-09-09 2022-09-09 Outpatient MOJGAN LOPEZ MDA MDA [id number] 15:11:06 15:11:06 Nicanor o n 2022-09-09 2022-09-09 [facility] [id number] MD 15:11:03 15:11:03 Nicanor o n 2022-09-09 2022-09-09 Outpatient MOJGAN LOPEZ MDA MDA [id number] 15:11:00 15:11:00 Nicanor o n 2022-09-09 2022-09-09 Outpatient MOJGAN LOPEZ MDA MDA [id number] 15:10:57 15:10:57 Nicanor o n 2022-09-09 2022-09-09 Office Mojgan Lopez 1.2.840.1 [id number] Univers 13:00:00 14:00:00 Visit 20795.1.1 ity of 3.412.2.7 [place] .3.875256 MD [place] [facility] 2022-09-09 2022-09-09 Outpatient MOJGAN LOPEZ [facility] [id number] 12:35:20 12:35:20 [facility] 2022-09-09 2022-09-09 Outpatient MOJGAN LOPEZ [facility] [id number] 12:16:49 12:25:36 [facility] 2022-09-09 2022-09-09 Orders Micki, 1.2.840.1 [id number] Univers 00:00:00 00:00:00 Only Britta Shay 63135.1.1 i ty of 3.412.2.7 [place] .3.781684 MD [place] [facility] 2022-09-09 2022-09-09 Travel 1.2.840.1 1.2.236.286 6930 [id number] Univers 00:00:00 00:00:00 68674.1.1 350.1.13.41 ity of 3.412.2.7 [place]7.3.698 [place] .3.549966 084.8 MD [place] [facility] 2022-09-09 2022-09-09 Orders Kentrell 1.2.840.1 [id number] Univers 00:00:00 00:00:00 Only Beth dunlap 78313.1.1 ity of 3.412.2.7 [place] .3.212537 MD [place] [facility] 2022-09-09 2022-09-09 [facility] Mojgan Lopez 1.2.840.1 [id number] [id number] Univers 00:00:00 00:00:00 Only 02905.1.1 ity of 3.412.2.7 [place] .3.752383 MD [place] [facility] 2022-09-05 2022-09-05 NPR Mojgan Lopez 1.2.840.1 [id number] [id number] Univers 11:30:00 11:30:00 55827.1.1 ity of 3.412.2.7 [place] .3.427814 .8 [facility] 2022-09-05 2022-09-05 Outpatient EL MOJGAN LOPEZ MDA MDA [id number] 09:43:57 09:45:35 Nicanor o n 2022-09-05 2022-09-05 Lab El Garcia 1.2.840.1 [id number] Univers 00:00:00 00:00:00 RequJazmin Carmona 78459.1.1 ity of n 3.412.2.7 [place] .3.518462 .8 [facility] 2022-09-05 2022-09-05 Travel 1.2.840.1 1.2.500.761 [id number] [id number] Univers 00:00:00 00:00:00 23638.1.1 350.1.13.41 ity of 3.412.2.7 [place].7.3.698 [place] .3.520270 084.8 .8 [facility] 2022-09-03 2022-09-[address] [facility] 1.2.138.003 2009 [id number] Univers 00:00:00 00:00:00 Deshaun M PRIMARY 350.1.13.10 i ty of [place]2.[place] [id number] [place] dical [address] 2022-09-03 2022-09-03 Patient Praveen Jackie TOTH 1.2.840.114 10 [id number] Univers 00:00:00 00:00:00 Outreach E JARAMILLO 350.1.13.10 i ty of [place] [id number] [facility] inocencio 403 [address] 2022-09-02 2022-09-02 Patient Praveen Jackie TOTH 1.2.840.114 10 [id number] Univers 00:00:00 00:00:00 Outreach E JARAMILLO 350.1.13.10 i [place] [id number] [facility] 403 [address] 2022-09-02 2022-09-02 Patient Jackie Morton 1.2.840.114 10 [id number] Univers 00:00:00 00:00:00 Outreach E JARAMILLO 350.1.13.10 i ty [place] [id number] [facility] 403 [address] 2022-08-28 2022-08-28 Multidisci LILLIANA Alvarez 1.2.840.11 4 [id number] Univers 00:00:00 00:00:00 plinary Sindusha H 350.1.13.10 i ty of Conference BUILDING 4.2.7.2.686 [place] [id number] [facility] 080 Branch 2022-08-26 2022-08-26 Case Zulma [facility] 1.2.258.472 0632 [id number] Univers 00:00:00 00:00:00 Management [facility] 350.1.13.10 ity of CL[place] [id number] [facility] 803 Branch 2022-08-26 2022-08-26 Patient Jackie Morton 1.2.840.114 10 [id number] Univers 00:00:00 00:00:00 Outreach E JARAMILLO 350.1.13.10 i ty [place] [id number] [facility] 403 Branch 2022-08-15 2022-08-24 [facility] Troy Rubalcava 1.2.840.1 [id number] Univers 17:07:00 16:00:00 Encounter Bety Carcamo 84499.1.1 ity of Gregory Helm 3.104.2.7 [place] .3.321479 Medica l .8 Branch 2022-08-15 2022-08-24 Inpatient X ALICJA [facility] [id number] Univers 17:07:00 16:00:00 GREGORY ity of [facility] 2022-08-23 2022-08-23 Anesthesia Guragain, 1.2.840.2 [id number] Univers 10:45:00 15:11:00 Event Lawanda 79427.1.1 ity of 3.104.2.7 [place] .3.931068 Medica l .8 Branch 2022-08-23 2022-08-23 Transition Ramirez, 1.2.840.2 [id number] Univers 00:00:00 00:00:00 of Care Ratna 97069.1.1 i ty of 3.104.2.7 [place] .3.584220 Medica l .8 Branch 2022-08-21 2022-08-21 Anesthesia ShilpiBrenda Jaspal 1.2.840.1 [id number] Univers 10:38:00 12:13:00 Event Ronnie Hammond 95956.1.1 ity of 3.104.2.7 [place] .3.592873 Medica l .8 Branch 2022-08-21 2022-08-21 Surgery Webster, 1.2.840.1 [id number] Univers 10:16:00 12:04:00 Shiwan 23724.1.1 ity of 3.104.2.7 [place] .3.531290 Medica l .8 Branch 2022-08-19 2022-08-19 Case [facility], 1.2.840.6 [id number] Univers 00:00:00 00:00:00 Management Care 35113.1.1 i ty of Transition 3.104.2.7 Luis Angel as .3.577206 Medica l .8 Branch 2022-08-19 2022-08-19 Patient Doctor 1.2.840.1 [id number] Univers 00:00:00 00:00:00 Secure Msg Unassigned, 60298.1.1 ity of [place] 3.104.2.7 [place] .3.918314 Medica l .8 Branch 2022-08-15 2022-08-15 Travel 1.2.840.1 1.2.846.297 7113 [id number] Univers 00:00:00 00:00:00 24456.1.1 350.1.13.10 ity of 3.104.2.7 4.[place].7.3.698 [place] .3.758907 084.8 Medica l .8 Branch 2022-05-04 2022-05-04 Emergency [facility] [id number] Univers 13:52:00 14:24:00 KAYA ity of [facility] 2022-05-04 2022-05-04 Emergency [facility] 1.2.840.[id number] [facility] 13:52:00 14:24:00 Kaya MOLINA 350.1.13.10 ity of [place] 4.2.7.2.686 [facility] [id number] [place] [id number] Branch 2022-05-04 2022-05-04 Orders Doctor LARON 1.2.840.114 [id number] Univers 00:00:00 00:00:00 Only Unassigned, DAISY 350.1.13.10 ity of [facility] 4.2.7.2.686 Luisa Ngel [id number] [facility] 009 Branch Results Test Description Test Time Test Comments Results Result Comments Source Cytology Image-Guided FNA Interpretation 2022-09-23 13:53:07 Test Item Value Reference Range Interpretation Comme nts Gross r8zezWRxSVUvgTOYCCOxNWRmDN4crLysmOf4uAwiHNEadcH4hZAdUVacp1jmONS3b6ijjfGSUnfkEKGl OT1xSGmbCRIoAM1nRhInIREfOeShYWFudZPzahDzUxKhMDJvfWYzmQJ8YVDnEZ2ixgkmMGmtGNtpTOBg zoM7CIGaxOFkS0PyBIDdTU4ixvqaYJM4MPANVgqhGq0 Description akHEzwIwyVsEeAlXuVRJlJYQnNCKuhSbsLUOvBYh8wA8YNhoaU44zr5T3Dql5PBTpRNNwM8XrIQ2zRKW auSEeX81TXtbiMSN8YNIMYkxzJkcseUzln9HqjPBdEBWmFIwdmVZqWSQiNAZrPPmfFjRCWdAnHtAdSzM 5KaY6KcA1BHv4UPBGMGMxHzKbVUdvOqX4HXw1NVWxUN (test code = 7iNYvgcHGwKOuqGnoeIDipI171OYexIEZpF3WuJ7UtHEwmSeEyYStqDMGoTQTfNVthHMVoX9HZSDEpBD T4CKL7ZBEmAFs8UDfiB7GWUIBdYGJ7RbJsDtW0GdI1YQn5ZFMPGw8aHYOkAGA8WkC4EbD7KAqyAaHjRC 4wUXvbgNVbSHugc5JcWxYlNITcJSfrcvT7SLJbgwTzB 1262564765) ZjnmBalkV9oDQRnG62qv4MUg1ZtQD9EASo4wcXuljrvlO3dDFJwonPvDFxvyKIlC9mvP1MnLKYoEkZwH 9JzF1lhDU5bFBGhr8E7bgRcNeqiJFOvPOypITEnQuDuUHUhykthReUOKODkN3BqpR8dZ2hdWVIzXDDzk nNIQeLaFE4oQJFisNZdyLDmfVixLfqwsZS9QKrfNyvz gL0ihMUTIUADQeqFWzhxxqDtSD6KDEJHBjKNCZ15EcE0CdP5OIcljAopOgqbhbMmoCRzYpPFfJ3vjHli zLEkwYPyzL19MHniTGGfq4YiB8Uol8unrWQzKKiwZcryjFGteyU2HQdWZQGMVZyUMtJmYN2gICtUFPIA LIqQZxytsJsjBxffhjDvtQQxCtAZaL7ieY6vBBw8GMM cSKbyt0ouTNJuNMcav3YlOJeKVXAGEX8DWX0ggAO1W2nIZLTCSOqgrEhiMsjforGhdHLwKlLThF5zcCf iiD4xlPKnO8uqfBQmfLTyzPtxUuFgUyVpWKVtCvh1hHK6SPAmFSjgb1zpQDMaARype7FcJQzQFCFTJY5 HRB0buVT8PKvFBHZDYZtvLRM3UObdoZS0v8brxUWbn9 n2YPbnKIE4xKqrsHUouxjrwRWiuMqdEfTjVaTaAOBpnO9nKjIVUTynZKIiDOhomKFjQM3HSBFGNIgwEC Obd1FkXJOghnCHSwYopQMsSSkoQFWPiSLmTBJivZ8eZe9bsJJgvD37DXymqy38SOY9u6ziqOCdMKmiEy xsnRFyoxP2JDpRTLHNEZiDUhUgDX4uIVwSXpwOMHyZW ni6PDU8XjujvMESAADTZVOOYRriuLy9RDd8eSxbWbbpveDqeSRtUhZNeT9hUD5rGA6zJ0kxAresjQN4J QvrPtxvoL0abMBELTELXkwSKslrvqZcDL6FZX8XGU8GhVWjDBgviHJ4EP8WMRmMEIRLlFG2rRmioUp8q 6azrHUig1l9BHdeFHK6eXyavCLozscbbUIysQvwNcCs CwVxQFHpQSAyhTXfqLCibJuaBljdeWU0DFyfNxigiF4mzTSLBZUSMtqYEplvraYjMJ6DOL8VCxRDDR04 RBE7QZtCJ7a1YHc2aTG8fU62XXJeQXEthYRwYKqqP002OUH5LRHrZS18BJFsKGyka4umORFrDFwok2Oq FBsDDVGFLI4TJR4miPG5DOoRK6AFMMb7Zfg8aR1XG3g hkXd3TRc7cDjzYnsmdvGizGZkTbOOoP0blYbpjG9qwLKiA4zjN2YfWZYdStBbjTCnML2XGEBnecINFfH boyQ3YKBqUBBgzAeyKJFzUUhWrC3rTGbbjUWsNTVkLJBtcMQsuZMkm4Ndw2QnN6krVT1zOJDhtLYgL9w nu8AeSN5wJNJiKLBss1CaX4F3MPUkOIfyw7ubGFOzEE wdq0SqFJzEQOJRCO8XWY5yjYU9LWmBYVWUN0cNhRZ6PiM9oAM1SL67DYZdSYYqqQImOUsgR688jZB2EG KsCAhfa5qfILMqUMeen3UxGYdUMEFUGE9QFR6yiCN7UVfAVNSKEOvcXBx7FCj2gKB1t3qmrJQqj9o5HC ppYSN7hWnskKImmeigiZLpwCxmLvPlDfXkIJNmAgfrZ GAaPMzfkw1GHnimoYizSiEdoYCtYxP6PECvhYAwUYP9AQ2zsCulKUBaI4JgJ3EjxcM2LZLmzwFOLcnqm GFpbiANCn0= Immediate Adequate cellularity, favor malignant Assessment (test code = 9837) Major MALIGNANT A Classificati on (test code = 9839) Diagnosis o3gmcARhGRSsySByMOTdXwbwefSuKYXzgMKgL8SsnregFOzqRR9eQW6rbRsfrRQehIKwXKErWuUiq5aw e365iTHca9xtJVOAdcaeqCn4hUjaX19cc9E4PcayS3rgGZIhFVezBHRtOJgubSAaDWn9WRApvVMhiuXq UrTaDQJmgDHnkGK1PBDqOH7lwcuwNLylSAqgQHZvcfK (test code = 1WERslKAtA5HqRRArTB7ymfaqOYK6OCjlCDGgEKS0VgZjGWZul4Wfpsq1VfBvvLr1v4ejWHHzLOYxoCn bx3jtYPW4UBBixKSvC7ivyJ0yZXRhXF6hxwrsd5ylCJbsLXsyADAzqPI5gzO6NRDqcOFtA7UlbL7zKTO tTQQhwtVctDtqsY5tBaCyCJeoZgWdLLbduKkvfz8nPL 34) najtdkuOCflXlhYWigZL0qO7vpKZMmvrKgwgJbVXjtUPRmxBpmOERwb595KAOcavh3QKCrhCQkCWxcLf SmQPszacspHDCWKZNZQ0IdJZTCQGmIRT0LVHHYTCpLOOCGG98HELOCNG5SFOePOVsqXNBQQEPBNKCFVo CVLSFDL1TQCbUZEk7JGEJzr4XwZJMatR8oozIaSTzcP XJ9 Comment i0ochAChVMHdnTPwOTYxHbuutiDiJXFplLGjO0PlqtswITjxKB6sCK2gdGaipHZuaIPtKYRdBvFli0xy f923mGVev7toFQRHaofctXz6mJbmC41tl0Q3IwxvP45jyXAiMIF6KOEdQUYziUHgXVYpKQL1PZOtzPCw Y4kzZOZjXS1gwwlfTTciMNsoWFPiaCF4AXYbtGGzE1M (test code = zWONcIJqnFIGiaav8BbPfAb2faMEmiSdiHSfoYZYwQHVgTMgyYOWlPyPfALtoVJHnxElpOsmlF6tqjEG jxKIkLWYdx49aa3BcHTWejfMzlFZ3aU1bhCM0w6srwjCmhRTobA9bYFWzDZMoNf39JHXdnHCrsz4wcYS uHTT3yUEob468GRwjhF9xQIdpuGf1SXYzJW2ohL04PV 9835) 0lSOK2yH4gUGKhkQwcOjJFpWWjnWW3NXAaFDpghHNdal73QIFwMET3YJPwCZRzydTqx0moU9EkJIRmuA XcwC6qSGExlqweUCXqCARbLSCrTXHjd56qDVKuTyOdUCBkk22pBUmefv0QfWmnFVKjp4ZgtPCKfg4hk2 Q3kE9qGVHve7NkRAnZHPZcUjIoTRdyqQr4HR1rIHhrF SZqND2emMKiTVBmZOAjKUzmnAhkdrb0nAYxEqU2yJ6oijRdVKxofuJafnC5HZK2OJktiCd4QYLeoP9zx JslhsLmxJDxdQ0kfcFyIXTnVP6wRnYqDMC1NCJld2UbrcpfbZPkjpRpb57bGY5vLCBwcYQgl2GfJVHnf 3WmX3msOL6wvEBqGNJnfDolXkloWgEeuZAsWIAepriw AKRaFJYvn2Z9UUbdUi8ahLK5nG1sDJQaCLL3ITUogGEfTIRdQXfvkRJfcBFbkKEsM4K3neGcCOX3SPNx zXvmjoTaKQPsxdMpylPmxHZyhuIbVR4fto9vhF5lKNliYI19dD0CNP5TLQxjQ6ziegUqIlRWUg4bBIYf qWQauWFyCz6tmSTxCV8bRILklj6qpMjzJSEafANdFDM mldIvLbmrVQNzGoSvCPJlZLBtc2L1BIV5y0seVtZmqoPJX4uaUJ07UXSmz22nCOX8k4M5CHvlSFWdOL8 pHGZbeZmwJXTfIxMyCQYdVIS2WRE7uJ7sWDxuuPisJCBls7OgF2wojANsXIL4CYGdWGVeEM02QmDuhBZ tHXEtFDd5ZNaqMVLtvRTmzuBwEPQcofZ7n6RmIXFyTD Cuj61uZA4ld77dUPfzX24ta1XuMzWmz1GlmTAgx0Tsr9BfR5bvePFwzAjfrtArkONwNY8iQXAjryJrfO 6bvKEcs9KxyLvaBJRsONwtrIDztKBaePL4hQ6lUOo0eAWqaKptLQLukwDuuK1yCv0aOYV0mO5sYYslnB MwM9GwhRQcBRHxG60hIRAxQHUORCbcgIhpEKXkztQyl hXpI2Rrp5EiqHPgd6TulJUoVS5einKuv2ElNJcoObXwqW0eLL5aFYXfdGMgmyKiqeUapFjpoTRxSCHfH XCzKLTcOBGdCIScTAMyBCUvodR3uvO6jGSrnI53CY3mMUPbpAdxyhVwlMDpHOAcRNmrSBzqb2SumWSwt 4NiIUEqwk8oewwbhLQgzQJmPX7tHNIax8SioRPeEZMx qdSuby2fhpErZOQyAVQbC2YqiqixsCqhtiTgajVxoNauywJ7sUWepROutKvwCGXcv5LweDReHJNciVLo GdqcTMSyxNFddS2txoOqUX5cNN9gAD2onf3lhPRhg6EqWUH3rG7dzrN9dJUeftQwzcLbqJwgjuUbaRHq ASZrgi4mkUKmLOGilGOxYX47XPLqHgcoTMThLXPouue wYXJkXHBhclxwYXJ9 Retained/Bio k9lwuNPuFUSmpJDsLXLyHpleunYiJSYouBNrC2ScexygUCylBY5uRV5qtYxmeCRbcVSzMOAsThBbe8ue a560nWLhp1fiLRWLsxjosNh1hWpwH14gh0B8FlipW71vgDOcHKO6QRClPHBooZVgXMEkHAK4VFCfeKEd J6bwIPRbSI1nnbbePDxfHTzdQHZotJB7CWXtiVQwE1H marker hWIHtFAgtCUPxrnc9TzXsCy3yrXAbjTmwNIfxEISnGSHrSAgjJWVvZuXlY8N7DSfrYemrKqJCMmytXGV GEExlYSRdzPSdLARqRUJzb03vyquoljHXYMX7sV1sFkcnMJPzuYixMH7WLXLZZAvnQYKyg5IoRlQ9OVW eQHnLWyEthje9CYefKKYeKQSXQPOykEayNq4ftWNjSH Testing 6IFYGKXFzxAt5taOQbPUHVV8cdCRB6QG2oNNJtnikfCKO1 (test code = 9838) Informationa r3ysgBIdHIYfkMGdJgXzZQEqCMPmy4jmDJLgjWRxPwCuJeYcUyPfSrxgqUEtTROqMlPwj5div282zBXf h9bpCIMmZrV3jMFlFYLhlPRkJ408VYYaCVjce7xqp9DbAMPmeJYqs4W1TJGXSObvJYEMXDg5a3lgLzEp UlI4bBUeVZqeS5fodjFcpMDuVXEpRQm8aL99BQKdoD1 l Points nrHGkJGuupzXiJhE7FJfnTPLlAsZ9SJMayJOhJEMzN5olXHLlUTkeTJLbLFryjKZtWNX2yNxzb8P5lUL dqKZyjJbbHbTaWyFuIiOTp6ZbYEi1yExpC7XjRFTySoI3yBJuFKAkWQxmDTMxTEYqyeQ4wB08PZytkmM 4nHPmx2Jyi69sf397jE0bhOAcGLY5TQXqCXKrpZHfSG (test code = SjRKP5NZLkaIOzA1dsMONeRU0lnrhcVXirVTwfHKGrxHJ3VCTqoEVcA6LqKWIpJRcqSXQpkfb3DiChLh 3eaQHytCpnJOltf4wzk3qlkSKzRyt4YPZoJdYgHsxzXLxkj2Ism2mcBCDhqs3cQEX9dWVowNcvp8A5kD JtAZEtmYYcxqQkIXVgYsF9VWxdBJ0olh36OBKiVRO5z 9836) h7dcPQvrQqetmQaiZIdQFfvT5QyZYEpb105RTGpU1WlGJOpw4A1swNnYwRfLSXoaRU2dzW0DNAiACc8d NZchlQ7qsKjaVYkT1ydtX9bRKLgZF7wvohkh7ikNRlpFUukXGVseJT5qpY5UVYpcJBnW2YaaW3wTEVyS FyrIGUizrz5WmUiRa1hvBOuwFcuJJprRaoiDMeoYBSe ypQsadBuuOiwHPGpBHJlLLwnMJXfIXviZUMpGGJiFiYzwMyfxNipyR8iTbRyAlEtYKibIO6sLUUfP0bk aKDjWJXdONAcO9hcOzKbsH5mkAhdIUnsjwI2DHyqD18yDLZ6SUL2mkZyEODcnqEoZVLfMLZeUD1ahZMp DALaNZPrTA0jHTL5PByewFSzXTNkTTLtMKYhx9FdHH9 dRAPazZRnDLY6JYQqz8QjA4VxCPH7VRTkbJ3wNDTpjVLMYKJQYMLYofXcbkDyryQBQDJnz1dmX5jkXB1 yFCajTx2zFAYbzrrrYRHnuIDcbgFtTPZnBRPwVFSep2ZrIHholvIafj05YVLkNS5qc8XkP7jtbPBgzRv 9UXLzTSIqUUFqo6NeFPXayh71UMHcYazogBcxYACiIf 9fWu8bQSArnuUmMHA3XsLRAZ7szbmciWVarFyxox1eTERuMAdxSRIvEJLqDvZolMXcItQuQzQibGlgqY khFdbdBgHmPYUpTWxrU4mkGyOgJqGvGtjcQNJ0 Lab Abnormal Interpretati on (test code = 13245-0) [facility], DLCO, LV[facility] 2022-09-16 00:00:00 Test Item Value Reference Range Interpretation Comments FVC (L) post (test code 2.081 L 3.288-4.836 L = 9508) FEV1 (L) post (test code 1.570 L 2.581-3.891 L = 9506) FEV1/FVC (%) post (test 75.454 % 71.028-90.615 code = 9510) DLCO_SB ml/(min*mmHg) 13.306 See_Comment L [Auto mated message] (test code = 9515) The syste m which generated this result transmitted ref erence range: 15.953 - 36.120 ml/(min* mmHg). The reference r pretty was not used to interpret this result as normal/abnor mal. DLCOc_SB ml/(min*mmHg) 13.654 See_Comment L [Aut omated message] (test code = 9516) The syste m which generated this result transmitted ref erence range: 15.953 - 36.120 ml/(min* mmHg). The reference r pretty was not used to interpret this result as normal/abnor mal. TLC (L) (test code = 3.984 L 4.575-6.549 L 9513) RV (L) (test code = 1.842 L 1.289-2.441 9514) RV/TLC (%) (test code = 46.235 % 25.350-44.530 H 9517) FVC (L) pre (test code = 1.983 L 3.288-4.836 L 9507) FEV1 (L) pre (test code 1.468 L 2.581-3.891 L = 9505) FEV1/FVC (%) pre (test 74.017 % 71.028-90.615 code = 9509) FVC (% pred) pre (test 49 % code = 9520) FVC (% pred) post (test 51 % code = 9521) FEV1 (%pred) pre (test 45 % code = 9518) FEV1 (% pred) post (test 49 % code = 9519) FEV1/FVC (% pred) pre 92 % (test code = 9522) FEV1/FVC (% pred) post 93 % (test code = 9523) TLC (% pred) (test code 72 % = 9526) RV (% pred) (test code = 99 % 9527) RV/TLC (% pred) (test 132 % code = 9528) DLCO_SB (% pred) (test 51 % code = 9529) DLCOc_SB (% pred) (test 52 % code = 9530) Lab Interpretation (test Abnormal code = 50572-2) [facility]ation 2022-09-06 20:20:10 Test Item Value Reference Range Interpretation Comments Materials Received (test u8gidSDdZVXmbQEwIwMs code = 9973) TKDmLSJsj8kyHIBpmXTs ZzEwMzNcZnRuYmpcdWMx YHXbBvSqs3lwc675jWWa j5jwAVOoOaK8dGUzSXFf kIUdT484UMBgBOlbx6bd b1SkISWrwAGjg1D6MADV umbcbXw1vEteB09xj0I5 IzltW9ocBGKaUZPbB6Tt FA4iKUQnOjt9BXR5PLP6 MONpLTDyT1FkCJ4wKMRa zPSoMAe3e1bshIeaGPZc HLV0t7yvWZibnoKeAS7d hw3vqLz7i3irzyNfUHWb GDEquDUMMUJmY2UsnXtj Ke7anIr2dFkeWiqbSTD8 Oht7UI5kbk37cxf6mLpa HPKphllwEpA8VDteSJZu uavjOYa8EHrjJUByiWqc MFxtYXJncjcyMFxtYXJn zAK8ZYKafGDjG1MdSIJr BMuyZZYkdef2ZhLiMl4y gAQmhIgyWXmsj9esx8df qOYdXug0ZGEmXqAuTlqb NGrxh7Qtf9qsLPNylu4x EFH0vEBeiWuna0T9sSPs GWEnwKJdkzEiDGOuak21 qUNeoWYfcUDtwt9bwoRs yOGhnJMwYBX8wZFntgOm IJJvgCMkLXLwAG0pvXDy NBOsfZ5qhsoxCRTlLjBr zcmrREVapUvmqdNqSa2y oEyaRZT6SAeqE1poaT0t XsT2QUuuV9bkkV1gBDu1 ZDixuDK5CGBvjB6sKL3w eptsp0plGbAjSB8muxzs l1vhCfDmEI5mlqc3q9hh HUA5PDxtFSClVdF7qcP0 NDBcaGVhZGVyeTcyMFxm d738PXP4LbAdSJVxw3Fc Q3VzeOjaR97opKxrY99f DVFptNxarG2pzYghaC5q OoYvCcTuMDs6xw88RGt1 ybvprTybHVl5uqYgXVQf YIE6FYFgrSEyMVIwZ8l4 xvLoTGWgKAJ3AIHewXHp AQGuR4k1cdFgQLG7NCp5 cnBhZGRmdDNcdHJwYWRk YjBcdHJwYWRkZmIzXHRy aLGuuKNahCMxlX9uaUyj GEGbhJJoyK6kYTR8MKPx cmgzMjBcdHJoZHJcbHRy gq61QTFfhwAmbJHafMub pKTlNEX5ZUNyGWCyTKOp JTK8PUMfXaSiypRuRHot bGJyZHJiXGJyZHJzXGJy AXJ2WAQfAzXpqdGqKLvv bGJyZHJsXGJyZHJzXGJy OHO7ARYuCkNcmlDlSKio bGJyZHJyXGJyZHJzXGJy LZY3ETLdXaYainNiHGgk bHBhZHQxMFxjbHBhZGZ0 Y2yjmGMoTZKgVGbdhKXg OQDaC7dziJDgAJptAZBi cGFkZmwzXGNscGFkYjBc G1whNMMhLsFsW9QqsJi9 MDAwXGNsdmVydGFsdFxj xHHfVMV1VYQdLFMePBUa EHC2KBEpDpYvjvZbULas bGJyZHJiXGJyZHJzXGJy IAT7ZTQaKvQsdtLbZQes bGJyZHJsXGJyZHJzXGJy ODH4FAHjVeNvfsGhQGak bGJyZHJyXGJyZHJzXGJy JXE4RLDwLaLfsyUoGKtc bHBhZHQxMFxjbHBhZGZ0 D6rajZGwRNNzVXnobKEz QUSdV9iroURoINotXGGl cGFkZmwzXGNscGFkYjBc T5gxNZCtAoClA2SwfHz9 NjAwXGNsdmVydGFsdFxj xUYyCUD6WGQrFUAePDYb BBK3GJJxHjSsecAgBOgu bGJyZHJiXGJyZHJzXGJy AYT7UNZpHeTbhvBjDPiu bGJyZHJsXGJyZHJzXGJy OEH7YWHrGcXuaaPoUNlw bGJyZHJyXGJyZHJzXGJy AIT0SHJbJuYmjdRaQDul bHBhZHQxMFxjbHBhZGZ0 Y1lbxHMkCRPtYNehoODo UOVqW8nguSSbNSepQHFd cGFkZmwzXGNscGFkYjBc R6nhDYHgCnQjC5QfkEf8 MaXnKRJwwhSgtO31Rmkw s0BzPYWhPGK1OFnzEWru bFxwbGFpblxmMVxmczIw GJdcmsvaOSGaNMtjK9fc CsFrGAQluGjwRDwgn5Ge XGYxXGNmMlxmczIwXGIg AWWzAWTsiE6cEgifQ4Dq jI0rYArxOzhjX4ccSEMb b6SenX2qXAuooJRftzeh MVxmczIwXGxhbmcxMDMz VXmvI7lhJvIgOIUcvLcm XKomu1KvJWKvHJKzPmpi khMbJAn9ajJdUWNijJrh jOSoGIhjyqGhhKnou7Yz ycUunXtdZYFuNEv6snDn bgjhcNo3rLJbiGmwRZQi zNmhuY3mNxMtCrXfXToy bGFpblxmMVxmczIwXGxh ckrjEGGcTFpwD2zqTmPg NLGbrPqgGTqgt5EoFMOi TMDcBwremeNbDOYkA56g bGVjdGVkXHBsYWluXGYx XGZzMjBcbGFuZzEwMzNc aGljaFxmMVxkYmNoXGYx UIcjP4mnNyFmW6XkZFZf TfYsnNLjU9xzH8LqyQtg YXJkXGludGJsXHNzcGFy AVM1nZLiiyBhyIAwwCKm RSXhQLfwMTL2gABwyldi kYXjtoofTTpvbzO1GINi YWluXGYxXGZzMjBcbGFu ZzEwMzNcaGljaFxmMVxk ZrNzBULfFJpzR1ucMkPf O1AaVCXzChVjYeCNDXSf aXZlZFxwbGFpblxmMVxm czIwXGxhbmcxMDMzXGhp O1akEeHsCJOagMvcJWrz i0RzZJZlHKLsLilhntEr CFq4lvBrHVLsrUuaxI72 Ljzqxb61HAFpf9hyLHSt F5TdmAFxWZMcvVJwEBtf MDhcdHJwYWRkZmwzXHRy cGFkZHIxMDhcdHJwYWRk ZnIzXHRycGFkZHQwXHRy gLZhTPW2B4e4nfLsFJZm UOv5okEfDQTjBaTnlFBx UHG1VZu8MzqbijK4iNIh N0i0VhgthrSvKVrjkXPs zz67JMRtadHbeCKaqPak rONoYRP0PFCwQDCzJNRk VFM3XLKiEpPbcbEnVRwe bGJyZHJiXGJyZHJzXGJy NEX1KFPdNtRxqkRwTObu bGJyZHJsXGJyZHJzXGJy UEZ6OUMrMrLvprUhZEzp bGJyZHJyXGJyZHJzXGJy SEM8KBOzNbGptaTbMOyu bHBhZHQxMFxjbHBhZGZ0 D6bkqXMbQMXuPMkakYYf IUNfL5yrhWJtYJhnLBHg cGFkZmwzXGNscGFkYjBc K2zpKLOvHgRxP9FgaAt9 MDAwXGNsdmVydGFsdFxj dZLjBCW0RUOpVIHuCAJw FIT2SRUrXdRfbtKsLEll bGJyZHJiXGJyZHJzXGJy GDZ7LTDoLuJdedOlPBqb bGJyZHJsXGJyZHJzXGJy LNU6VNIfObCdbfZdSTpy bGJyZHJyXGJyZHJzXGJy MRO6JFHgHhIyqoSfZSyo bHBhZHQxMFxjbHBhZGZ0 W4ydmHCiVSYhRJvfpQYz ETCeI9xkuCVzQErtXXPq cGFkZmwzXGNscGFkYjBc I7ikRMNbVcKrL5RqqNi0 NjAwXGNsdmVydGFsdFxj gKUmJCV0YDNsTUAoUQTi FBQ9KHJaBvNmmhEcDHcz bGJyZHJiXGJyZHJzXGJy XHW4PJUyVnRmxeOjPRea bGJyZHJsXGJyZHJzXGJy XBA3ELDcUnJuiqAaXOds bGJyZHJyXGJyZHJzXGJy LHF4BPXaHqNjnpBvHVlm bHBhZHQxMFxjbHBhZGZ0 F5yofEQmRRCsLAzedKHt OJAnA8vgfMDxSWwoURLr cGFkZmwzXGNscGFkYjBc M7jwXSCnYeQnH7ThoKw4 OwOyNHNtygGbwF61Itpg p7RdPQNjIFA6HUhdHKdg bFxwbGFpblxmMFxmczI0 XHBsYWluXGYxXGZzMjBc bGFuZzEwMzNcaGljaFxm NNnfJuFgQHSyIPmdA6pz BzRyB3OjFVWtEuGaLC8t Cf2iPt7dVWL4PMaiCbPl O1VuWYMpYysHV4rQHGRz MBDWU1grhOTrxbmcGCjd czIwXGxhbmcxMDMzXGhp L7xnExJrWDIjlVqbLBsy m7NdMBQoWVZkOqrlsbWo DMy4lcQkATUywYlklHGj WBvanoLwfOzsq0ZlqnXz dXgwXHMwXHFsXHBsYWlu HCFpSVToCoSfwOnhjV5f QxLfJtYnCOgwUL2hOPNi A3tsiIStFMSmEKCfI8yk QqQkiM5wiLcaWYsxPrGr SjIhLGZ4KySmLuXaM3qa bGFpblxmMVxmczIwXGxh kswjIGEpMCoiZ6fbVlBz PPNmbQdwHXkrt1MwCQHq WAVlKobyyzWpBKz0muEd XGNlbGxccGFyZFxpbnRi qOjdl9VztjWmjUksSBCx XHFsXHBsYWluXGYwXGZz WzIbcLakfD0tBqYvOeDb SXqrXX7iIVAhN2quzYId AXPkAZKjE2fdNcMmmY5i aFxmMVxjZjJcZnMyMCA0 FuTvSnQlOvBgwCcjzL8h OuHqVnFvCKjsWQ6iFACj T9rfrZLjLZNmSQKiR3pd DmXckA5qlIfqXQbkGlWc ZnMyMFxsdHJjaFxjZWxs XYtffETwIOAcl2xmSXTk YTXadKRtNBH4jSRziySb pYnkwHmmgR9kEhElBjAb NFxwbGFpblxmMVxmczIw XZbcnoidTATxHXnhV3ut YjQnUZIrcShcLXhjz5Nn XGYxXGZzMjBccGFyfQ== Diagnosis (test code = z6alzJWdOAUnoSKvCDLf 34) BlvlvvPkOGLhqODnK1Lr ksfaTNgiUN8oFZ2sjNdu cAQmgIRlXHTwHrItg0su w547uPRjj1cfSULMorwo lTr2fCaaR12le5K5Aeyy D8gyPCEmMQcdFJXiPWtf fGDbFJm5HKHpgPHitaHp FwAuTQSleQLhuPA6BTAx ZZ9kpfcoKIarWWrvDAOz kzV2QGKtuKZuG4NjCHZk WZ4gpscaHHH3SIhcXJVd PCX8TeDhXXPga6Lkbcb0 MjBccGFyZFxwbGFpblxm czIwXGNmMSBSZWNlaXZl ZCAyMiBzbGlkZXMgKEZO FyDhOTArCsTtIEPwi0hp inK2AGZonEarxYyycp7u HQofk5OusRqwtmQ3Pkdi HAHLWd3iG4HqGMNgskLe bmVlZGxlIGFzcGlyYXRp k17mVX0hWKBad7AhfBpb EdRyYwezMDYkK4TaVXZb sir7XXHtTMNVXe5JUGRQ JS7RDLGaOXNcZvyfTDJ7 Comment (test code = t6dhpWQoKOOcwVJiQUCl 9835) EawexpHuREQbmDOnO5Er apnwTTjsCY9xTA3taCup fOEdxLRyCDAtHeFmv6bg o879dPEpm3duMJVWetvn tLt5iWprL16uq2N2Xhtc K2skPJToWXltMQRyPKzh mKBjLVy8ANFjjACdbhCa IbLpJWWwmZBzsUK2YBGx UH9agixgWGbsLPjtVUDb xbI3TRGfyZGaO9FtGRDh FO4bprcuRUJ8ZDwgGBMf IAD5YbXfBEMiv5Ihxtu7 MjBccGFyZFxwbGFpblxm aaUaCGLdVFTYhX51tb7o XYEpsKdnWTCxDGL8OBxo debabPPyNt7ezGEjEG4i QGWywSkvQispR4xbGQMk SEFeMPW1eI6ytvWncYX2 jWLlybTwJMQzzD2pBUot p8IijAY7hF5mVFUyODSm kDYyrCF7LSKcEn4rTAKz aqygwwO4sSOpGSYhjJLr bMJsMRPbUQRsijFbz5vl CWMedaCdqL4wwDUjrqCs Jy0kOWSPMyYigcKgicRz WYQjalDrZd1nRNUEUwPy ZZVYWQ76KHRuWYOiMXBT RmXaVD8xqRSmklRnVEPS JGEVHqcgGA5eFNhZSiYb MTBln4AoYQIwOG7hBWv8 qP54Q2eeuq60USKbBNNe CacsKBG1uYVtNkuuEOmw C6Jio457yDPaGmOmI25p jYA9gWUeWXP2hMRbUCFg yULtHrUislmoDSD1PEgl ERWcXHLhqXQit8FwnKY5 ZSBjbGluaWNhbCBhbmQg gfHexA6ik5wkI8JfMCJr dHRpbmcuXHBhcn0= Bi[employer]arker [employer](s) (test o8auqYYuRBMrhVOpAXTl code = 9841) TnoxksRyJICfdGDsG6Jy bnxvSGiqAS1rQV4xrOzp qKDyeUPbABWuNkQwe6vx w793eTYot2pmIRGPbwwk hBs4rYtxR72bp9M7Cybm Z60odKMuMGP0SDJlLGFt kOClRUBgPHC4RUFpwNTo I5lwYZLmST1cxzmuUNex NWqgSMAniZR8WILulOWd J9NsDEQaSVxoVOAswnh5 WiDsQm1ocKPokIfoFJvw YXJkXHBsYWluXGZzMjAg PX4jqVKybQNrHT94BDur YXJ9 Disclaimer (test code = i4rerKRrCHUbfYEnZmHy 9814) RNFkQVOjy6czTDJveVNt ZzEwMzNcZnRuYmpcdWMx IQZkCcAdo9msz278zAGj n4grZUGyNrN2hIMuFUOn ePOaT668FSZzXGewp3sd o0XvCTXqiDOwp6H3LAVM fyzqzNo6uJmzE74bm3P7 FjzzQ4okRBQuGAYsC5Ee JQ1vKVKhQdc8VKR7BVI4 OMDxADOwP5HsFR6gGTGk aRClKEh8z8vbnNhxHVWb AQQ3z1yjGWqwedZaHE9l kv2xuXs3o2lkvjNtAPVn ENNugCFDUCAgV9InsVdb Xj5fjAi1vKmzXkrrSDI3 Mai2BI7gfd97fty2uGwu PMTmfcmkFqY7XXxsAWTi fjapUDh4PBegAJTioXO6 CWLmoZRfQ5YbRRNhSI2u jqb5WOB2OJorHKTdYdO8 NDBcaGVhZGVyeTcyMFxm h579HZY9AcVdXU6dB5Az h3V2kV5aqOZgVODraGHc VuVoVGLcaa9tdBOhZFgx j8RzBGO4ayC4iRZlwOEf JIQhVR60Tdzmx3DdOvzw MBY6OGWcdsCoi6Ued8qy YgVkcyCnS4qhI1CjDTKj TAOrAFKuTaMfadGva6Gw c9CpaRJpmDq9r3juQFHk ABNmbRyoc2lfIUO7BYEt H6O7cFXzv4tcDEmvFWXg qUS6rwK6HILitBDgA6Lp yF2mTBOlFI2fvhd1x3zt FRA7WWtsLBFhOxM5tdR3 NDBcaGVhZGVyeTcyMFxm n479SRN5SgFdLMXzq9Fz I7EhzMqzX77woMnbW24g LPSqpMhyyM5npEikuP5v ZjBcZnMyNFxxbFxwbGFp inndFQefnsD6MSuglqnz TEXbZYttN7rwEeQgWOTd dIikDUnkk5PmXESfNDLk XzsfexN3QQOLm88kHZIj a1JaZCZqvJ6ugPJnKPrb hoCdhPQ2KAbeieWsUjOl eaMkFTDvdD7dQCEwWO4e ADYrziQwnq8uwdHnJRXr RLAgM5CydlrnvXkdrbEw CFKmeh9ycuQyVMJ2XFCR VC4OYQOpKUHdw18bTPJx vAcmnG4ovTSimnLfBKFm w5CuyY1thZEIUUZfU0sm ZD5jELlto4VymXKkrNRf fQE4SINpb5NeSpTgdbGn bEPodYShM0RasXcmE9fj YKArDJVtdiOufAWef7Td QNEocWM7dBIuIO0BOvUF p63vWYSwBGQNxnMsMMPr mYhvfFK9dnY2eO7cHaFF ZiBhcHBsaWNhYmxlLCBj s325ps3upqL7YTNvHTZc ccmwg4XcBJYsHOMnlI86 HBNnCRYwlo0mguvugBWt mrBmW8Czqap9qL6iZRYe YWluXGYxXGZzMjJcbGFu ZzEwMzNcaGljaFxmMVxk ZbTgPKMyLLmbA6zqNdVy ZnMyMlxwYXJ9 [facility] (NA, K, CL, CO2, GLUCOSE, BUN, CREATININE, CA)2022-08-24 12:07:53 Test Item Value Reference Range Interpretation Comments NA (test code = 136 mmol/L 135-145 3029699723) K (test code = 3.8 mmol/L 3.5-5.0 0425358494) CL (test code = 106 mmol/L 98-108 2683287320) CO2 TOTAL (test code = 25 mmol/L 23-31 8290181668) AGAP (test code = 5 2-16 5812688837) BUN (test code = 13 mg/dL 7-23 3466816813) GLUCOSE (test code = 120 mg/dL 70-110 H 6379243054) CREATININE (test code = 0.57 mg/dL 0.50-1.04 1353170677) CALCIUM (test code = 8.4 mg/dL 8.6-10.6 L 8955348286) eGFR (test code = 113.7 mL/min/1.73m2 3294892769) KINGA (test code = KINGA) Association of Glomerular Filtration Rate (GFR) and Staging of Kidney Disease* + --+ --+ ------+| GFR (mL/min/1.73 m2) ?| With Kidney Damage ?| ?Without Kidney Damage+ --------+ --------+ +| ?>90 ?| ?Stage one ?| ? Normal ?+ ---+ ---+ -------+| ?60-89 ?| ?Stage two ?| ? Decreased GFR ? + --+ --+ ------+| ?30-59 ?| ?Stage three ?| ? Stage three ? + --+ --+ ------+| ?15-29 ?| ?Stage four ? | ? Stage four ?+ ---+ ---+ -------+| ?<15 (or dialysis) ? ?| ?Stage five ? | ? Stage five ?+ ---+ ---+ -------+ *Each stage assumes the associated GFR level has been in effect for at least three months. ?Stages 1 to 5, with or without kidney disease, indicate chronic kidney disease. Notes: Determination of stages one and two (with eGFR >59mL/min/1.73 m2) requires estimation of kidney damage for at least three months as defined by structural or functional abnormalities of the kidney, manifested by either:Pathological abnormalities or Markers of kidney damage (including abnormalities in the composition of the blood or urine or abnormalities in imaging tests). Lab Interpretation Abnormal (test code = 07806-4) [facility] METABOLIC PANEL (NA, K, CL, CO2, GLUCOSE, BUN, CREATININE, CA)2022-08-24 12:07:53 Test Item Value Reference Range Interpretation Comments NA (test code = 136 mmol/L 135-145 5313848936) K (test code = 3.8 mmol/L 3.5-5.0 9842927030) CL (test code = 106 mmol/L 98-108 7058640902) CO2 TOTAL (test code = 25 mmol/L 23-31 7237233476) AGAP (test code = 5 2-16 3165469738) BUN (test code = 13 mg/dL 7-23 3060994334) GLUCOSE (test code = 120 mg/dL 70-110 H 3236455382) CREATININE (test code = 0.57 mg/dL 0.50-1.04 3029771694) CALCIUM (test code = 8.4 mg/dL 8.6-10.6 L 5570419622) eGFR (test code = 113.7 mL/min/1.73m2 4031592720) KINGA (test code = KINGA) Association of Glomerular Filtration Rate (GFR) and Staging of Kidney Disease* + --+ --+ ------+| GFR (mL/min/1.73 m2) ?| With Kidney Damage ?| ?Without Kidney Damage+ --------+ --------+ +| ?>90 ?| ?Stage one ?| ? Normal ?+ ---+ ---+ -------+| ?60-89 ?| ?Stage two ?| ? Decreased GFR ? + --+ --+ ------+| ?30-59 ?| ?Stage three ?| ? Stage three ? + --+ --+ ------+| ?15-29 ?| ?Stage four ? | ? Stage four ?+ ---+ ---+ -------+| ?<15 (or dialysis) ? ?| ?Stage five ? | ? Stage five ?+ ---+ ---+ -------+ *Each stage assumes the associated GFR level has been in effect for at least three months. ?Stages 1 to 5, with or without kidney disease, indicate chronic kidney disease. Notes: Determination of stages one and two (with eGFR >59mL/min/1.73 m2) requires estimation of kidney damage for at least three months as defined by structural or functional abnormalities of the kidney, manifested by either:Pathological abnormalities or Markers of kidney damage (including abnormalities in the composition of the blood or urine or abnormalities in imaging tests). Lab Interpretation Abnormal (test code = 69859-2) [id number] 22:31:01 Test Item Value Reference Range Interpretation Comments Case Report (test code FNA Cytology ? = [id number]) ?Case: [id number] ?Authorizing Provider: ?Jack Webster DO ? Collected: ? 08/21/2022 1110 ?Ordering Location: ? ? [facility] OR ? Received: ?08/21/2022 1202 ? Department ? Pathologist: ? Jazmin Fox MD ? Specimen: ? ?LYMPH NODE, STATION 4R; ENDOBRONCHIAL ULTRASOUND (EBUS) IMAGE-GUIDED FINE NEEDLE ? ASPIRATION ? Final Diagnosis (test t6qppUUjHGLnx9ssFCZhsGO code = [id number]) uZzEwMzNcZnRuYmpcdWMxIH tccnRmMVxlcGljMTAyMDZcY R0byJvjhUd4tIriTAQpymT4 dQOiTIizm8poXMN5e8epldp wRBOdHYhhHk7gtVXasXisDy UzLGYbHPa8cU76KOXuuS7lg CQaRAl2SRSpmRDhehWoGtNe ZLAljGWuvTG7KZJqFQ5wuuf hWIorDGmjMFWkmoB5BUCulB TuI9NyDGXqPM3mrukpQBU1R MhySVHuWHD1ZiRoQJBox3Aq uqe8YoVkhWPlIYcojQSgzdy iXGZzMjBccGFyXGxpMjcwXG YfUUH2LFwvsE7qTkAcPM6qH LlFXIloXc5JDSvbN1GMGBpJ XwB7LsodYB3RR7ZBH04NXCm COEZDSOWOFCNYVU4IQGvGHt TCKNDTCUIKSX0NISkLRULdV klORSBORUVETEUgQVNQSVJB PTmPSkpvAp1TY5TZJcJRMM5 GN3bjNYMFCsGiMKbbAtpaBJ FiwYCsOCRwNYOzYRUmIY3DH FYKJFUCSZYuK8MXJ4tHA51F GHdZQGUcT90DELAWYIjlFJG agipoAUS4y8zjqKCpHGLqdM ZdXjYaJDOyKTHku8qsEVTsj GFuZzEwMzNcZnRuYmpcdWMx PBXbBjJoq2zts082yTHxo4e fRNUuExF1xWKbKEScfMjvvr o0wMfiCrQySYZpx3hvhxVlN tXpIOYbNKVzJXMnbTWiR452 LGItTAnwd3zuo2TaYMPjzVL oy0W8YFPBFAhjDpKsY840i3 sfp6gjhqQhjUU5OBQtLCE9V XqngtUsqiY6HFntzIXvTmL3 IDtccmVkMFxncmVlbjBcYmx 6QYSdO218CFH1oZhyf8peSU O1OCHjZFEhRjyqAy8tlWLeZ 292PHFcHZRVGSOeaRz6EPPf utNiebPlxEYBu312K618f5t sZCScwqGqmXmOwosnc2fgR7 19XHBhcGVydzEyMjQwXHBhc KIykLX2IJVeSI8wjbsqJIom FBokMHTcjdL5BFPdsTFoH6A vUFGsIZ5stusrHQW0AHqyZJ SnZEN0XxSaDXBvg1Zqteg7M lGryt3cxz97AQY6a7RgxQxm YMQ3KII5YzNyPx6lnWQyWKQ vKO4bEjMbuGIaQUGcvd31zC twPWgtumVdaS7vFgXfONAho RSkSQYmQF2erVVoGBYcaI4w cmxjXHBnYnJkcmhlYWRccGd rpzFiZy8myWlrXZR2MWbdC6 mhtF7wBbN9ZCkaK6sanF0hC Wk0COgygZM5DKIjaP3aFG7p uwvjg7tvVFdvXZxcGOEmosW 9esR8BQQxgQJoB0NhhZ7iTW VpLL3tjmkuh9xzEMJ5YRikQ UWvZMI5EmFoELUct1Toatv7 QvDqz6TkkXZcDSnfH63mb74 0OVVtdsXtD3mfxRBuygcfeG TfbgdeQWhlgoN8YYSfFGCdF WluXGYxXGZzMjBcbGFuZzEw MzNcaGljaFxmMVxkYmNoXGY tUFtzK9nbLdYcH4XzNMLmWl WawUTpJRgosON3QRVpPFWxy 53voYd2CEBrdipki6KjMCYh oUPtyPAryF9vweDkz0veGRV dQQFsLQGpU3XlXTK3mJMmIT TzpASrhVA9KQ4jjbQxME7kE GUgYnkgcmVzaWRlbnRzLCBm IYtwr7aeNF8lVGVzfLnelP2 iyBC3VYZnq6yrlXTpsLMou0 hrp4TztkKhKElyIDKgWPfpQ HRcRZYrEO3nHKPaxFDktrKj t5B7RmlhfZPrfycfVowqfwC 2EGmtbklpVXPqAJtfM9bbKz OkSSNqeHceByfsi8LpROVmW GZzMjhccGFyfX0= Final Diagnosis t9eiaCWzIVQnxNXiBHIuPfh Comment (test code = 9rDIlz5J7uvuwKZ0ixExvfC [id number]) b7dMryANZsqdY9sOUrYMzem 3fkHXD7s8eisccoVTIwJGvv Jl5zpHVqqWymNbEoCCWhAZg 8xD75LYPguT6ceIIqPUe0JS BhcGVydzEyMjQwXHBhcGVya MZ7PFJhTB1jarxaXEmfRJpk JAOjmcM8CULnkHTeZ6JgCSQ cDZ6gsfxtZMF5XOqjQUDcDG F5NwJaMMDoz1Fihdi0OuPrn DPlRYjqeQL1DgfwnP08lBFf XHBsYWluXGZzMjIgVGhlIHN gSMQphkEriyYbN9QmhRXarL 4qaiLslj5nWXE0WLVmcpC5P tSxzF0whMPoc4DbRPJka0gf X1i3h6PwopOnNN1tZAWwv6E vzjJsXHQ0mH0uwtLyIUwhtv O7sBRfIZKpaAAeF6CzVH20V 2xlaSwgaGlnaCBudWNsZWFy BXVvIUB9yX9jmBUosLdsQLJ umYebBRUahHAsldYtyw8nJC GwBXzpTD6tCTNpt22qiwSux LHenDTsHP8llO1mOUXaTYOs a8VsDOLuk6VkgVAvUDRus4u zKbL8WXYlXGfzGJ62rvUtIw ItGH6dpUBhpSayQQPonTeqN KbpQGYqYPO8mmLdioGjCDQr M8mitz98duRaj9BvlPtyySg cmPXnyDqud9GgCzSbyDZwNR AxaPGgTMqrjWVnp9E2PHivw gB5ISDqBIEvyxSwkc9kIDFf yzF8mVBnF33vGISbgT9hk4g aWKAjBXX1vILaYBWnBMHst3 wda9xrywijeuChwLj7xkbtk BKoSLRmoVQrQP6vAYBNVQqw bPAxQZVzPwVHKVaskSx4BLN jPKWywmTpAP6gzTMaohA6DQ UvTyKDJJfciKw6ACkwUCBnY eLsIQXEIVi8DJTnVtd5YIKk OG7lvZTrssJvoTEwJAQcRX1 hFYZcBde2QQRtcPUdNB3iC9 J8qAPoDMQgzvUwFVLDWVOdS aihdMUmKN7vM0O9gCEuOUNt vrOqYSHMNDChSok9NBTaOyP nYXRpdmVccGFyXHBhciBUaG CzfH3iqZavjZ3iaSNkvNHue pHnoI1hnR6fqLTlZrplDVZx mlSucCwiz9Dik4PcRFRfFCQ ifQ9pyXFoSLYvRDQvaEtrjG lgfoRyqfWxJM47gvYvRLWxg 3Xut7zhHGWqu95rKTOxkL6s EXZwkU9qmwpqIT5jxs0udXX qzYSyUCxfFO7vLE55BDAblb wgdGhlIGRpZmZlcmVudGlhb KKoeUJxhk5rcHChxH1wmBYz IIYyi8IkOGYiZ4f1QINho9h 7hCLmDURsYFNFRnQnNC6aH8 C4nDYiYGMirK2ezawhN2AhW 4mal58xyuOrgRKnTHFvBDOh KFDifAxogFLbJVCkQ5CawGE jsA03VJA6yC2ysZbrOI9fRJ TfgxKpKDL7sVKaGayepLMme A5iG9esynhcIRblF24bhbBc SMUje09ssxYbm61eZP8tRCL sRRPyj0OhjOXlz0XsNGKxh7 80RNheGDH8xzZVqh2cP7tlq PYpuQA1PgJlUIRuRK4yBUN0 CpF8QcIfICW8DMLtMkZBNMa naXJpLlxwYXJccGFyIFRoZS TyaB43mxCwb6NnaDL4HUTvF EvoEICklGfwXktlKJOcf29g qMslARHhoQjnDciaM1awIZM hURRke6PpWBIcv2CbnMScEE jpYUzreKl3QJRlZSI5fYEop BRpNLwiObEbu2QvOklpkHQa dCBpZiBhZGRpdGlvbmFsIGJ dm15aidaijpF7STK3eB7cSK eaLEPlvJDhx8PeIT7yFSGgz xjcZPBtJJEnSY6cuFpoU2ae fSNbAWLjkplgv1FsRCEmEEV hZXGaSICtLWWox64ycNJdCC fevLzufQmhMOLzTVngp1Gqs f3mzTUzETWauu0= Clinical Information Mediastinal mass (test code = [J98.59] [id number]) Gross Description m4qtyRBkVDJfyTSnCIOrUxp (test code = bhuPqPMXdsYBkU7LooncxWX [id number]) ooFM8hZS3dsUrwcODeaJCfO FGsMvTcn4vhh368zDWog8hz UYNAkyhbrMi0wIueD99nf5I 4XgwfD3tqKSMtFMgtSGKpFC lgmBCfRWa1NFWjbUOurrRfT pKpCGVviANneAJ2BQZfKX1b kdpwPOtjSBvsJVBxxcB6RBB woVSjK1VvUFLzBL1jahyyJC D2LLywMWKzLLU1DeVoVFTls 0Uktcz4GtL9IOluRISiV4Hf S3PrLRwuSBY6GZUuGCZjUWV gYM3WQsJeNLZ5ClMoLlWsJP KUCYAbMbUwWvS3SOYZQVMzB UTjYCV0ZlP7RqVeUOXEERni MDAwMDAwMDEgXFxuaCBcXHQ dMJLuPGKiZUxancB8n1deUE AgxAFiAAS9FAqniMHnLVFfY BXyADoeLyVNUlKoZbR3OlS7 KIVjGxX5ZHa3SZIIDoKjLlI xVjAuSaM7XcdrBGv3FSd0DY iPPoYeMyc4BjOuHzOuOSE7D RYgTRxnsVSyZRfyq8BbSoDk WYGrSRutjeA2NUEjmxMinBf iwD3vBgQuOMupOAKhbPQpPS orEzEmXOCsbXUDd5KgQGshq GFpblxmczIyXHBhclxwYXJk FGYsPeYxLYCbJDNWBW3HICT DC2ZTARGSCXJKLD2EYIUEOo BFTkRPQlJPTkNISUFMIFVMV OBPI97UCoGdTPKHSFQeCOmJ ALhEIOdIGXFVUSBUTK4CHD2 TNBXRJOAGW4ANZeRYET4EOC BhciBSZWNlaXZlZCBmcmVza NAnneYpSgMuX4SlrdFhMcHt UY9cmLoxk0SsLA4diKEoeWU uGA8xdZEirnNrHZE2FAGmfU taBRHer08iRXLncsXbPYdcS IDyh2HoFKFvEOxwRBAgPGQp cGFyZWQgNiBzbGlkZXMgKDM aUh8eWE6qo4KmlJBrhEMpdy VkIHNtZWFyKHMpIGFuZCAzI FBhcGFuaWNvbGFvdSBzdGFp bmVkIHNtZWFyKHMpKVxwYXJ ccGFyIEEyLiAgIExZTVBIIE 8GYRHdLBICBEXHC01tKSX2I TOXYG4MYq2OO2bESVjuWQpC XoREK2QJBHAkYRIVMwnnMG1 QL8FoQ8YKKBUXZPOSMqTQPL CfYomOVJINWIyCW6LNKBZDP EvdXHZtDuDfv1FaYRGjWJJh QOF9xOf1BZCat1HyMXJqw0P ivIHuUTJmrgqiwkjwfW2oeM NkD2QvPXPfn18iPB9rWJGlK DJkHSFzrBZgvFUfZPLewD9u Kn1lkFWcdD0ta74yRV93ZcU sTzYdOZLmWpRxs0Szyy6kBO upp5DkEHAzh7KcsTM6sS4rE VDqslAmux8eWXByySIIismb IFNtaXRoLlxwYXIgUHJlcGF yZWQgOCBzbGlkZXMgKDIgSC HAGMQlSBC7GQmyqXSvb0E9Z AcwUBQsTQXQMebkNhGue8ol QSwgVFRGMSwgUDQwLCBDSyA 1LzYsIENLIDIwKSlccGFyXH AehgNKPm7nGSkVTRUSRK8WN JSkQFPKOFBAC58tDGS8KQNE TV1MIu6IA3kFORybCPlNGxU OG8FVLXHtNPIATswcHQ0ZG7 TvT2DFMPTBLSJZItEZVTTiM mrOFKNJMNeSV6NDHYLLAJln ADJoCjQkx5OzZWCoFFZwRZI 6vSv1DZEvk7FhRAOne5CyhE QmALPxefagwzhmgO4ftMBvS 5YbMGVsn30mPB8rWHIkCREr NJDgaCAgqMGbOUHcrR2aQt6 ilIJisU5eh02pGX38OaDhZu GzTLLfAoZyf5Dvnw3rRYhsb 2JgGRXmh6UdcCJ5kW8mZYHk rtCiih8fBNWifQYAyldbUDZ taXRoLlxwYXIgUHJlcGFyZW QgMiBzbGlkZXMgKDIgSCZFK CilKZLxdUZlADW6McWxBOiW JFckJt0QHHmjP2POHNmPGlE 0MhwhIS2EK2ASK02PYBrLOP TOWHQBSTGMSI9LSQlVWgFID MYHHZVHDN4LBDvDHJNdAmaT RSBORUVETEUgQVNQSVJBVEl GJarzQ0PSTBMAEJ1PN1nnFZ IgTmVlZGxlIHJpbnNlIHNlZ AcpNP83BPUsHGZwJZEwlzGy v8MnFIcxvnXpusP8TuAgZmG yMyAxMjIwIGhvdXJzLCBlbW ZgLVSiLKZpiwUFvZR7p8iog Dq7QLU5AiXcZia9VSYwxuSi u5LylZg7qSTrCVAsmrCvCTw iHTWvj0ReLUGgsgTEjpNsTO JlZCAyIHNsaWRlcyAoMiBIJ kUpXHBhclxwYXIgQTUuICBM DS6JFHSBG2ZOHLBKWIQQHO8 OIDRSOyBFTkRPQlJPTkNISU XQUXHEIAWLO23JFgQgPUYEN VMpIElNQUdFLUdVSURFRCBG YL4PXA4UNWYGAAYLY1ZRMsS WXQ1WBbFJRYqUQJXBR2SKUM YinbHKSVScdKRyzumso8Gbx 6PfmO1vorRcmIljX8IqUWqn NUZftx0ahRqaYW8jAWXkOD4 lOBAuICKqHbDjvL66muGxPS CnXnKmCRHcRFpzQZpbs1EyV 4QuUZI7CTbpQIpnTXqfWAYj PIEekPYucOI2SXOpBu5yKLG ddAljXclrY7kqhZThATLeWR FkxsWsTIFuh1vmBAQfGDwoN TdkUDqbcIMjNLMivuQLj7Cf tWZ3OXBwODKrzZIex7odAFH pbGMcPTGtEnNcUAMqQ2jkRR PaPWFuTZFUvPzbPGHyJR1iL MIcfLseB7Mjm60niSGzPQFv x7LxNQDjRRSqaSFaTV4hr0h 7HKI2pOEjGLPzpDbrigGxiq LwNWBqbtMlxE9lnIWfBUzyE M38mQAiL9R6pH8nPD51lEVv lsCrOwRpciV1DFMpCaruKTU ai27xf9JqcOB9cSDikYDrAM WshHi9eF5cEqHiSusnZqNfS ZnyEEQvK3BlH6KiqpR3a4hf oMcse6SwuCMsEQ9ldUVbnL= = Cytology Rapid e4wamTKwOJHfcTXDOFXiTIV Assessment (test code gYB6udSmfkJq4nWbfXCJdxj = [id number]) R6pIHvHEihm7zyCXH6v2wpe pHFTzpaNUVgIC1xNZnwOZIw DM1lDtTpJEGfXgMjAHEecAX zuwKqTuLpZLCsbVEzqLQ9LS NgXH7tfsotBCaiTFfxWVAxa pZ2ESOjrHMjS6CvDRRpCF0y fuxdWZS7YOLHGqivKl9efSG ibHtcZjFcZmNoYXJzZXQwXG WnpVnfVOAsDLg4kB7AUeccF GY4RGMYDgzfXueryIwuw8Rm dCBcXHNnIFxcaWQgNTEwMDE fMDxwStFGZzHcPtU4LyL8XG OoXyH4KWu3IIBLGEScNceoO FHhJVG2GAx2DNCpKU6uIKfr jFHfMUczMdvzEJggL664MHn rLVChR1BdQ1UlORijAtEoNQ ygUZQjBHSgLEhxEJUvM7VMY QToLiHzTvQtMhGoCAa9ZOey Q1UUJIMkUIJpCAFwEIT4EuB 3ZZb1EMEARb3qPNy6LCAhMS e1PRU1PGx1JnRpCQOoUpTzV NLoPUInFEastVWnNL3qrXvr DHGmDF2XGXPbEEuiHBZyCkV rbWVuIX1ISOVhlnDyLGzfxJ ilqC7lWnUxGQzbeCYxqIepw nXzKTSgpQYZQDV0IT2qUCGK ClxsdHJwYXJcbGluMFxyaW4 fNM9KMUAfVlDqvJAaAI6AEK GmJUZLPA0JODVGQ3ASJWPUK PQJSH5MPYOVEwUNFpOPNbIG VeXJLCIAAXBIPSSIL12QKrK gKEVCVVMpIElNQUdFLUdVSU ZEKOJNLZ8MPO2LQDRTAKNQD 6PZJdAJCJ0SCAJfmrDACzCj vNreEG7iODTosKMaJCOebKD iyUgumfCdKUZjg4BrBCRhUy eiFOTeNqR6A5iwaSgjFODbL RjNbaMneDI2pD6zHOXmaAGa ZGUgIyAxIChwYXNzIDEtNCk 6NIADr5FvvRk0AMLbn3YdrT UewQbyVR27OKIanPefPEfyL JDfYIqyXSBpqVlspU3hhwvo cmFwaWQgZXZhbHVhdGlvbjs xd0AzWXHnefFsIGazoQIfoE LjuAL7gF5jPATnJMOrq98sY Z28VVghcgRzBLStn7DiBOas HWYxTUvMxbAwyUY8jB4oIFC eqnOzwu4lZAAmhZLVDW8JYH okwONdq8MtmnDRDC8ukZNwC F3beMx0IWbcAWMhDWYUnrn7 NILgsEA8FYDigjBpFCxmgPJ ac3LbbfglRQqhRjg9WZLghS SuGX7EBNIhVpFhVKFuX8baB QMrUI6JOTFbsNFZJWK8AE0x QVfmVJUtW3XgF9VdqtB2z7i uiYhdk8DmgNGyPS0ecMMeQH 0KXHBhcmQgDQpcZnMyMiANC n0= Disclaimer (test code k9nbwYOeRSMcu0wkGSRmoCK = [id number]) uZzEwMzNcZnRuYmpcdWMxIH hrpvAqYRmjm0VoJ3XtBnIoP FxhbnNpXGRlZmxhbmcxMDMz SOS4wtGbXKPdSIhyRUIiBFm nUf3drJNbbNwhJsHeBIMfy2 bdzbKMMDelQqArG949RXVqB Fixx9klb9VcSLDhtNDxv3M1 YIAOakpkqUy6uGhkG14gl9E 1BjpjF0veSLBkAQYqU3BhHR 8cHVMiTpp0CEG4YAV5XZOlK IBwS5QpZN0aCPUwgTGcVEn8 v0uzpBxxPCStNNK5z7esCRz zlgFkEC0yzh2wvWz3e2wlio QnPZAsUJVpoWZKTBEsQ9Lmw YkrDk3nyMi8jYjhKhfkMGQ0 Lls4FJ2oom99pvk4dIjrUMT qtxgxYgJ2FCioEKBciwpjDN w9PGwrOMCzrNE5CNLmfVItS 8EoUKTbFO6rllc4EQB7EEkt GXYhCgR7HNIadLBtWAKmqIg aBElez650ULG9IbErRX2vO4 Nyj7Y7rS4dgACdLNLxjMJtR vHbUTJpuu6bcHKoDJhyl8Wd MCW8dbT4zHAikTAiTQHiEW4 1Sxhvn8XnOxxkm4YrT86cgM P1GFefg1njDW8sCaL5zuJyB Znmk7lgxN0bNqW9MIjkBR3v DG2yUTJvqG3towdjWJNzFbV faoalQBBijBmztpBdRv0fcA mqKEI5FXhbA8nviH9mHqS0J NasR7tunG9pFTb5BLcyvEP9 NULhtR7hOA0yqxrye9qzRAh hBQwtRDDbdiU4vyX0NQXoqU XgH7CbmE5rBPHtTA8puehsr 4vdRKO6FUueABXpPFU0UlGp JUNqy2Msepr3XgDam6WypEH pQWliE96zs115AGIbdjKiB7 xwbGFpblxwbGFpblxmMFxmc eK2TJBvohEfd7YzSTAyKEW1 NAolEFapuRJsJRGvvVugq4k nM7QoxWJgWFQeBYbrZFMkXA ZzMjBcbGFuZzEwMzNcaGlja DasDNulUbUiZIViRHvuS5ca XjGeA3ZwHZUcAkOxpRVoC0a kGAkeheCuDJDwjyBftMQ0UW drC8p5CMMeuxRofUy9nnMlB zJzNAIuIGW0PIfxoXRvMZOu c4GioillaEZkAz2stMEtSOB haB7kXOUfLZHzPKciZT9yuJ l5BPRZbYCedSXuPnCFBILpV H20xhRvVJYQjxmsy2D4CLzm KLEds0VaeACbA3nur6BzOTZ cf32zEI1rh1Z0s4ipFPG8RE 3oq3CuLILepEKmwDIdZKKic 8Qwizfpr4BxFKWgpsKbl9Jo ZCBhbmQgaXRzIHBlcmZvcm1 oozHcFWJaWLSxP2RalkuloD mtxfDxSWGhmm0baaHeQYX7M PBHFCHwGMFcu9LgsG2wiBQJ QJL2uGHrkb4itbDXtTAbNPR zxr26CHPbMN7zW6neFIVaOZ ViidXlhXDba5ChIVXrmLY2v HFxBE4ACoJHx40dRGNiJMJH pmPqZCDkyIdnaHV0dzJ7nU8 uIChGREEpLlx+IFRoZSBGRE FjPW1vzuRqf6BbvhTloNqnK GYajJWor9RfaBMlm5QgkIhq q0PhhZHzuMMqVL8wDKIkutq yIZLmOWYNVfCLYXDmcaN8m7 BbXWQmYENbYON5kGmfjpe1L LJovK7cIFDjR3psakizFRqh HGOyz4XrnL0plOTEbYMxg4Q peXBgkHWIrXArZF9mbsAmPD dXBBiKZAZ7skFrGFUqv7GjJ JgaB4jjA83ylGpghDu3vML7 NLY1lN3aDli+IFxwYXJccGF yIEFwcHJvcHJpYXRlbHkgcm SuI6FcusBrvA8lyUHueeAlP C2hGU1nB3H2eTZwZIVnoeEe e2nmDRryncJrTuKabjDlIDZ fVKqdPFApg8WpAQqtENW8DX lucyBpbmNsdWRpbmcgSCZFL RQBhSRrfAWiKZE2BUitaoOa nmCeTP8noV5vrXqziI3wmYK wuLN7tmrhVYCyJXWrxRvxDG UiPN4euWKnSVKlteIPnWucs DWquY6lS7YuGRHoVTXumi7x BMLavL7hSJvgd4CzzcgcOIB vRLYsPDIjtuUfoy0hWBQzaQ ZPBS4WNMxzgVRie3OwqwWjQ 4iTXFE4BSGfLkSbBygjAZYy aTPjxAJbPKRhvm81GHApxB7 luPteHQYpeN1cvK4swHgkeK 4uRtAlRnCqBNfvKP3mPEBlH 5znaZNvCRJyTWDpN3nyJjXi gK9plStfYDtgSiTiVjTgIAm uKSI1eF== Embedded Images (test code = 7354002342) [facility] [id number] 22:31:01 Test Item Value Reference Range Interpretation Comments Case Report (test code FNA Cytology ? = [id number]) ?Case: [id number] ?Authorizing Provider: ?Jack Webster DO ? Collected: ? 08/21/2022 1110 ?Ordering Location: ? ? [facility] OR ? Received: ?08/21/2022 1202 ? Department ? Pathologist: ? Jazmin Fox MD ? Specimen: ? ?LYMPH NODE, STATION 4R; ENDOBRONCHIAL ULTRASOUND (EBUS) IMAGE-GUIDED FINE NEEDLE ? ASPIRATION ? Final Diagnosis (test n2vcxHWtDYAid3qgWUPwiKG code = 2540555764) uZzEwMzNcZnRuYmpcdWMxIH tccnRmMVxlcGljMTAyMDZcY F5vfVixxOr5xRhlCBAeyzC2 wFJrFYtkm7xtXWB0s3znumm gPQUsLTpiAe1mwKUmiIvfEz DfTGLfRDh5dI77PAQlyH3ks PWgCAe9RIIcgGUecaCrFvWf ZJTkkJLjzTV3WTEuXX9zykc oAUyhNEqwYWJhodK9JLYxfX JfT0PpQHZlHV5xzhedNGZ0V ZssUAYmEWQ6QxVzZBLak6Uu fwt4GaIdrALgUDnymGQufri iXGZzMjBccGFyXGxpMjcwXG PgTFO2CEwmyN7wQsLzOL2vI EpYJKozOr1MEBpiM6EZUVyB YrI8YzmbYR9IB4CEJ77RRHw OVXZBLDPENWKPKH2TBNfHYb HNGQRNVPRSOV9NVPxFHWCcC klORSBORUVETEUgQVNQSVJB WXmGAcwbAy6VJ3TPCoLWFL0 JS2ggGFQAOySrZTaoSeslXT AyyZWbSPZaAIEmPPVuCV1EZ EKRMTPBTWTzJ2AJC6tRV94C LGeFGETyR75DMCMAMAdpYWI pgomlOMR4w2kevLLfTCYrlT OgRaWnRUChWVTmj6yqHOGnv GFuZzEwMzNcZnRuYmpcdWMx CTSwTnEyi5swy125sTJae5q jDCMgQuG9gVBvILHdgBfioy m2rBteMmViQSGis2nvtvSwS tWhOGUjZJCaYNLxhOSmN235 EFCpIWlrz5kop3JqIYQswUU nb7V4NFGNLLtbLuEyZ145r8 oiu7xhrcIjwSE6HDFtAKW3W AjyoyFlozP0MBvpbJZjRgZ3 IDtccmVkMFxncmVlbjBcYmx 0QUBeB877OGS2vBykv5dcDS Z0XOVpJOCzZnikFe7rfIDqB 040GKCzPMCFCMDknEo4WDQs ruQqonOjnRTFe163G391w7b dJNQejjDpkNdNhrweh5cwD5 19XHBhcGVydzEyMjQwXHBhc GLvbHK8FADvHJ1wksleBLqn ORjsRGIliyR3CPRopAByF5F gIXDlXO3zmbaaDJW2XXflLM VlNEZ2JbMeYHBef0Gpuuz7Y gZtqh4wln49JIH0n8MzmKao ZXX5UZN8KzPrDi2fzSRnJRA uWI9cDwLpnPUeTWDfbk73gL gxOIqwfeKbcH7gRyEeKMLxf RYzUAHqDZ4pnBXpXIRodE3p cmxjXHBnYnJkcmhlYWRccGd xywYxXf2epMroYGV1RTfzB9 qsrS2dFhW8CVupE9oehV9rS Rs2ESyzoQX2YTArcX3vXE0r besby4grPDcbSTfcOGOsjgF 4bzG8JNBzaORhT3YfpJ4lQA GyUT4dmgevs3acOQC9BAwiP WSrKGI2IkYnKGPir3Fctzv8 ZgErr2StiKIoHDgkK85io03 3MJDiusZdH9znpEFldgukpM OkkmuhXBfpdtF9NPXyUSUoD WluXGYxXGZzMjBcbGFuZzEw MzNcaGljaFxmMVxkYmNoXGY yCGsjK2fbNdEsL0DyEJLlLt BdnDUwERmfvWW1TRPeSOLjd 38riEz5KVShoyvag0TzBRZl vGIduORccJ9tsfKkh9daZSS jKWXbTDLqL4SiHBC1jCXzMW IomAQzlFE7FQ4bzqJiKF1aE GUgYnkgcmVzaWRlbnRzLCBm TOuug2tdGC8fGQRrxCvebJ3 wkKV2QBQfw0oykVYazEPkz4 gcv2XjlcSoVQjjJWLpJAprG TBrJHQjDT1tSMJmrWVdosXl b7Z1BiruoSVcwupnQcyotuB 6BHkfigduUANlNRocB4nuRv XkVZWiaJcgIvpzo7UfLSLhB GZzMjhccGFyfX0= Final Diagnosis j6hmkGBzJAFpfJHmICSkYhe Comment (test code = 4aDXlv0S4byeoNS2fwHgclB [id number]) i9lMhdLBDprzN7jRJqZUaut 7ssKFO7g3ngabndXWNrJIgc Az5gcUBnmUfnPfWsGAVxTPv 7yY58TDEocK0vmTCvKWl5NZ BhcGVydzEyMjQwXHBhcGVya BA9HGJzYN0vbpiiMRnyYMld HMZtrsZ0CNPueOWlC2MnYWF eDF7memrtFIV2UKoqWMCmJX M6EwQjYZBqr8Hwgkw9YvAkk YDgIPbkpAB1NqpclM35kZGl XHBsYWluXGZzMjIgVGhlIHN wLRQbcnXmogRcH3OmeUNzoO 7tacFygx3fISZ9JSKrzsP7C uZkvB5mqWYrv8EwQJAqm3ki H4e1a9CdkkLgLO1fWVLwb6N oljZpQHL6dG2mkfCvBKxrbo M7gWVcSQKmtCQdM5KvOB15B 2xlaSwgaGlnaCBudWNsZWFy KNCgOWY7eG6snSGkjHvhWRG dwQdhJCWqmBLmgtJbst4qQE MwMRtbKB6rRWLjg53szrYqv EPoxPPtZB2wdQ3nWOQgHVGj c8NrXGOqp9RhhQKoKHSia6n wTrD8KNKoCXngFL38wsGfIu UyIR7fePIthOimHTGapOxmQ TccUEEjRZW5doSzivYpMOSi V9swhn13flXry3IisTrorFn geTHthIfve1KmYmRhtIWsFP VveBYrZIzivUTyp6B4EOyxs gS7HYGzROLkwbZvha4wCWEz beC6gBFzB36dBIMswK1as5f mWOOaDLV5qUFxHLKrYIMae3 dys3uaghkaqjIxqVt8zwgjc CZgGEAazVGhAF7aGRNVHUwz tVLvNIKmEaSGDQknxNc2NCZ hZPIdcfLkLU0xhPAqeiI1EB CaNmJAVZlyiAk5TCbpAEHeW iAuFMOPXBz1FJFfTww2HBYu CE1rtMFtihOcpFQzEAEzKI0 lTPShZgk0RDTprNOuDQ1wX7 Y8gNVlYISnuvZnIJNMZAZmW jfpkIOjKN9jB3T2rVMmSINb uzZxMQTMPWDbIth9ASYeYbO nYXRpdmVccGFyXHBhciBUaG JquM6dlEfxjO2wqJQnrZBap xJqgN5urG4ibUQsRwwjNJZc yzLzoQfgv8Lvj5EsXLFdKMX spW3vmVKaZUQeQDPiqWiwmH guncEuaaAeQT30qoHqSCCqa 8Qds9hzCXIvb13zRHFewD0o OGHfbH3onujlYJ1uoi7vrAL chIErWGqeLH6mJS07HQPtyc wgdGhlIGRpZmZlcmVudGlhb IEhyVCfvd1zaZPdoH5oxMDh WMQmi6AhBWIqG4g4BYKmz7b 8lKTeOQKvCEAMDoNyVL3iW5 I9jGWlJZGebV3cvffsJ0HuR 6tpj42mqoMukQYvRUUfESMi BKEwjIuquZKhXLZfU6CeqJS tfW86IMK5mJ8lzShuZG0gFF WcshOkQOG1cPBwAbsspUTjp K1nV9wpkmlpYYroZ81szlEy CEXyw45wvrLlb46aVV2xDNW eRVBka1OhrBIer7QhBZTqe3 21DUhmFBR9igVOpv9yI5cib CPlwTF7MwWsGFHzQV1fJJX9 DgV4WfCcKUG2PEKxSkXAERy naXJpLlxwYXJccGFyIFRoZS TosN88ekOfs4NmjZO6ZDZkV RkqCAMoxBkcNesrIGSpb05b aZhsDBYbqMbdTdyzN5atVFM hBGPbz8LoWWGie1PnjHMmVD myXQntdXm1NLWrCIL7jPUmx HIeSHriZzGcg2DuMsuxvDXx dCBpZiBhZGRpdGlvbmFsIGJ nh08fubzeoeJ0RSK7gL0pZZ prRZWnzBYai7YkUP2pTMCzz orjDLUjYKDnUO3zoStdY9rf kXIkTFWemmvju6AjXKAuUEX gLAQmHDLzWPKit66ltZHzDY zzaHdmbFkcVWSoBQdwd2Ypn t9itBYvDACaql6= Clinical Information Mediastinal mass (test code = [J98.59] [id number]) Gross Description m8xacNJfHBBotMRwWPOnUgz (test code = dmnWyYFAnvLBiE1TybychJV 8129255231) epZK1nGK8jdLfcvWFdhGFsH IIrEnLsw7xyp897iZQia6at USXSszraqXe6sVneU47at7N 2BqhlP3agNDKmBKaqBSPaAR evsDWlZSf8UYUlvUIqrrDoB rOgZWWnnBUumPB5PLWyGF6d unmyXEavDNixPEHeqeJ4AXJ hwEJrP2DmLDOhBS1vznzhTP X9ZUsnXJTpKHP7DqYtJGJts 3Okgvi8SkI5YGccDIXdP3Sl B7IoUSeiMHT9DINhLWEiLZK wWI9RBpAuHEK0QkTtNyEqQR UVTTJuHiDgZoL6BLYFRMOiW IYnATJ3IcU3TiQfWIWYYTnw MDAwMDAwMDEgXFxuaCBcXHQ rWPDoKMPvDHdudlH2u0zuTL YwmKRiJOG4DBgwmKHrZYQyA UPdYNudBxOEUxJtObR4PxA9 YZXuApB8JVl1ZIAEFwAnDcZ mBnBdMiK7YhnqQNa9AUl5HI nDIlOnMax3EbCuSiDhLXL7L SOwMQfuhDWpPQgnx8VmDxOt WVKjAHuxzfC0AWSmnqTrxFw ipH1mGxDgASifYCZogBJzJX ffNkJmNHStiITNx9VwJLvut GFpblxmczIyXHBhclxwYXJk EPLnHqUuINGrMIZKSU3VTMT ET2JKDBIGMHLTQD5BCZBYMe BFTkRPQlJPTkNISUFMIFVMV KKWE03GYmJnPWIMIZHnFVcN KEcDUZlBRVBMZLTYEV6TQE1 CTJOJEBMNX1VITuNCAK7VXL BhciBSZWNlaXZlZCBmcmVza JRcqvGiCgAwX8OjvyItUpVz UB8iqFqqa8PfKE1piDTkuKB rRH0xsKJoeiXvIGD4FIEbrP jgOMVrs32xIWUwgdZtDYvcM LKbn2TsLDWoYIokUPFiBAYp cGFyZWQgNiBzbGlkZXMgKDM kDl7zMO9ho1TyqPSnwYHckf VkIHNtZWFyKHMpIGFuZCAzI FBhcGFuaWNvbGFvdSBzdGFp bmVkIHNtZWFyKHMpKVxwYXJ ccGFyIEEyLiAgIExZTVBIIE 5NJVLyNEHOQRJRH43eFGE5G HEOFY5WDg0FN8oWYTvkPJrP UpURZ1JMJKZzKBWYCktmOC6 MQ5GsW0XNEQEBBISLPxNAEP RrJcuWQNSPVYcEO3MTZIOJK HdeEMCmSyJvg3BqQDNsTVOw UZO1eKi6VNUyw1EuMTFxj8V bmZCzMKVptreervwgrZ7vuL ViK9EqUCUtf86rUZ5cJYScT SOdDHRguHWppKPbCWAdwN9e Qt2hkEAhtF5rc59vKB30MwA vEnHvAKLaWcBjc7Jnuf7lJC agz6TiXNKmn2YnfHT5pC8uV QFxivCnjy2aRRTogYMNdrqg IFNtaXRoLlxwYXIgUHJlcGF yZWQgOCBzbGlkZXMgKDIgSC DNERNqSNJ9SCkkxHQpz3D0D PajEMPwDTNSUiqeCdAnl8hu QSwgVFRGMSwgUDQwLCBDSyA 1LzYsIENLIDIwKSlccGFyXH UezmDSVw1bBGxOKJJBTZ8SL ZZkNMDQWMFQY38kVQZ9FKOW VZ7UNv2KH9nEHSxwBUjLNwI MY6OIEIDpTNRIYybwKS7NJ4 YrW7GRKQGJLIMXGdEYFUIiF gjIMKVQXPzGD4TTIIJWJGwg VIXuTiXwq2PaLMBxNNMeWZZ 6jYt0GTByq3UoJMFhq7TzaQ NdIGGzanfoxnaznE7ljXQbF 8IdPAMrx19jUL1nDDVaSSBu KOUvpMJzfPFzPTQvbQ7yIy8 rzRKblI1tg81fUZ91CtVqBb ZyLZQqXrDwg5Fqah9eQHaal 7QlVQOar1DniIN2rY7tAVJx xlSkdl7aEBPmiELLhiajLOX taXRoLlxwYXIgUHJlcGFyZW QgMiBzbGlkZXMgKDIgSCZFK QudKXJvuOLlLWR5RfJwWBlS JCynVn4XRSjqI2LWDRrJMqP 7MwstKO9OV1TEX69ATKgJOG CTJSSDICPLUX2WFUcQOaJLE BMSNWRAXE3ZRIoSWZLtLfkL RSBORUVETEUgQVNQSVJBVEl WXyeiE4YVACZMKS2MP8nsKH IgTmVlZGxlIHJpbnNlIHNlZ ElrGW22UPLoKZIaPWPpbvUh k0LxKHvuvaRdueB4AqGjRgV yMyAxMjIwIGhvdXJzLCBlbW RzSJEqBBZhnoQAfCT3q8jly Ui8ZAI1TgLwCjt0VTLvpuTh r7AdgJe9wJAyINQqguCvAUa iYKWie6PnSTKgcwSZvcDqZE JlZCAyIHNsaWRlcyAoMiBIJ kUpXHBhclxwYXIgQTUuICBM KP1AJSEWW3YRHXKKOJRJGP0 OIDRSOyBFTkRPQlJPTkNISU NZULQMXZZIY76KSiZcJKRJD VMpIElNQUdFLUdVSURFRCBG KO6HIZ6TIYXNZYPBM0IMLjT GCD7PYdQEKLaFAXSGQ2NZHW KswoTKENGabXCwahzxw0Qtc 6VqjQ7qiuRmmOsbZ7KsXKww PZRblc8zjFmwYM3eCJZwPV8 vRMQyCMCrKuPvtY52maTkJQ AbBiMcGNQlVZenQHalg2OhD 2IdUBA2WWqkPZbhDXieTMEj VARdwERxdUU9JGZgIl8nEPP muObgLzdcT9uesHPeNMGmMK VngyFhYLDrp0hvMUBbXKsuN UqiQMticBZcXNMoxwQQh2Va iPL7OAZtYBSibXEvh1htECL lpFUiVCFdTbYpSHFaW2nvDA AnSEGxIRFFbEvfDPQpWH1kG ZQydOqwP7Okr72sgBSyWYNm b7KvDPQkSKCxxFApYK8mu9t 3PUT4cXTyDHYprUyiiyGcov UaEHEfdxRopD2pnSBvAQdqT I34gLQgD7C8mK0gBX27gJKo vuDsBaRxamL1IDIfZwysWOH eb44lt8RviTI7pHUroZDbCH YugRc6wR1mMoQmXcpeUcMiH EsiVJTiJ3JeW0HwciA9l2ao pXnpc3TibVOwFT5bzDFbrJ= = Cytology Rapid n6uapKTcIATnjCSPMNCdNIA Assessment (test code qPS5ouKstoHd9cIbuSIYkpi = [id number]) T5nXVwHGaio9uiMMU6y0iml qAPDzteEYQsWY7iARkfBJMq XL2mLdRoJMYgRnSqKFFsqMK jplUoVcWgTZIovAWvsQQ6QU VgXP1gdrxoCYvfOBnnYJUwi hH3EXSpwQHkD8ScCFFmJL4l nplaCCH8OMMNRwyaCd6pqXY ibHtcZjFcZmNoYXJzZXQwXG DvuFsoMMPhBJw6vW6UFdzkU SP5ZFZRXmgxBhkrsYpwo7Uh dCBcXHNnIFxcaWQgNTEwMDE wNWqjAaRYGiPiVtO3XtW7SL OhBqT7JFd8PIQRDSKjTlczJ TEuVOB9NNa4FQXjXG2pCWso cHTvFFswOqxsRCeaN417NGq pEDTaW6MiI4NlRZhaGzHiTZ gwAYVvRDZoBPhnOJOmQ2AUG HEoGmDmXaGxFjYpXDt8KIyl G6NMHTFqMMLpLXEtEVS6CpT 3HMy1KGPUCu4pAKs3KLHjXG s1XWJ6LCn6KbOhSGCcQlBqL SQcDWZwGKqtfAYxMA8dcEii SVOrJH6CJPLlHPzmABQzYiA stPLsVE4CQBLfffEzCHuhbM rdgN0tWnVhDGqecNFoxKmim pQcKXOfhWJIQWX5PG4fSCEH ClxsdHJwYXJcbGluMFxyaW4 dUG4SHPVdYbLbgDXjTU1OEF EdQANAGM0PXEWQW0ARQBREQ FJMJV5KGRBAMcTNDsKYOnEF JjSRGMNXFNZTQRXCH97XUzH gKEVCVVMpIElNQUdFLUdVSU HUOZDROO3OOQ8VEINYBGVFN 3KKRsFRNX4SQRGqrvKINwJq uJarRV4aWTDybFCvVEBinWO ksHgajfRiXTZuf1KdOMLfZd riYZFvMkC6K0byxHodIMBnJ EpHdkOjeJU4xL5nYHPxvVXi ZGUgIyAxIChwYXNzIDEtNCk 0EDJHf6SscNd7WQHwk7ZbvN JtqGkeJF35GJWcyYnpISdaH CTlGDeeLDBkbYrkgQ1gshng cmFwaWQgZXZhbHVhdGlvbjs sg3QxFDKzboUvYXskvVWizK LwnYJ1cR1lQDKrVVRgd85zM H55PXtjbkXmLHAyo3PwHHya SNFmNHuXivJpxAT3hU3fPDV lxqGuek0yUICkwYHTVO4TCS vcfDMay2GlfuLWKL6xcETnY T6xzMr9NCgyVOOcFARSauq5 FFKewUQ6LDOxrcFaUXpotCE zk4KxqrmfXCsxLms2LDInsA AwPS1STRQeErFvTJZbW5mjH AZpCP3GQOUyrBYNVFQ4NH7w XYkwGNHtU6NoP8AgnfH1v6d edWtyh4TxjCXkRV1sjMTwHK 0KXHBhcmQgDQpcZnMyMiANC n0= Disclaimer (test code e2frmHEjIFCeo3ltMOYlrOP = [id number]) uZzEwMzNcZnRuYmpcdWMxIH yyknPmVJmmx9DvN6RtKuGvN FxhbnNpXGRlZmxhbmcxMDMz FVA9reSxXBPcPYtmUSBsZRe tFl1zcOSvnMaqDuVfHZPex7 gtzdMHIKihBlNqQ751OWDiJ Ajak4fyp3LpZMKaxIUjx2A2 KIHEnxbetVs2yZguW65db3L 8OwzsF1rhRLOnDDBsG1YyPM 8eXZVaXce4LPJ9TJV5KWFcV LEyK8EjGX7jMXDgzHQjDIb8 i3uraHmlEOEdATW4s8oxVAu wdfDgFW6avg8koJi4k6bqki JyGCDtPZOlcQMPQWXlM6Ewy EcpJd7vvHf7dPadTvhbXAA7 Kjv7PZ6rmi24ekc5kFxdFHH nhbnqTpE1XPzsNNXartpkRN d0DCbpNXAvaIL7WMJljABeB 9HzNOPdRX1atnf1GCQ2MQgi WRSiQkX4GDCsjRUhFXGekOk gGOwui703CTK8BgVmBR3sC4 Jcc1T3jH7ojMWkFWLweBHnZ kMxBZQnat7qkKKhEFlex0Au AXM5muD3xVUmrJWmAVJsJR2 5Akvvu1VcOmitt5RwM42duP X3QBinl3chES3nKiY5kdWqC Ylni3qriL4rVeU3AEdmFH7l ZT8mMRWtbC1gelmeNHNjJeR vmbagPMRxdHqgfnPkGd3jtN llSDZ4NJtrV0iikE2pVlC0F NlyX6tfuE9vWZf8NUaisET5 KYPjaU5lKZ6wrlxxf3yvCNc iYTgsVOXqmcG2tsV6XEMycF VtQ0YipA2uKVDsOI0mzklab 4dqWZV7MHewDUCeOGX8RxTp VLAds3Klptp3RrPek6ZwxKC bKAmiM99io869PWFsijMgS5 xwbGFpblxwbGFpblxmMFxmc oD5MDOgxsYyk7OaCDZjKZD5 NScsOTszjQHnWDNpoHcwi2l tN2IqmHNlGWZkQEyjNOWnWT ZzMjBcbGFuZzEwMzNcaGlja KooCHvvJdFpDFZtHMqyY2pd JhDtW7IfLXZuEmIpxQZdZ1w tTAdkneIwMUXhkmFxfRR6VN jlW5o9BSOqhyTppQp9qbPsU qTaFPNdJVD6EDnmhIMsQFIc e2SezflzgKJzJl2jnIPzTWD voE3jOXBaALEjDXddTZ9amW p3CJQBmVVppKTyUhOVRBIbT L66ftLnQZRWengeg3W8ASes IPXjr6LoqPUtI0gtu0OmAOS wy48yJB4ce1K8q8fvHNR5CL 1vb9YsEXBmoLNmgOMyBQVsl 7Fxjatfg3IkUVWtuwAvn9My ZCBhbmQgaXRzIHBlcmZvcm1 gsiOxJCLoHCYyZ6ItzkdwoI xaloMnMHZvnr0rpgOhCMJ6Q SUKQXEaLZPst1TbgL1scEBT XWA9lJLzsl2kjeTOeEQmSUO hfu03OVIpII9bF2yaFQZpCL JijqXioEDzk4SbXRRtjMM7r KYaHB5CMsHWs79gXANpTRSB vqUyKTVsaMuezYV1uiX4oB2 uIChGREEpLlx+IFRoZSBGRE RwTW1jcjSvc5OhmuMgyNdtW IVscISlo6IkjIDly3GpoDyh m6HpuUNgxNKkPC7rNRCslxk oEDUtTFSUMmKTFPJyifD1r2 BcBOSyJZRnNNU4iOebkbb9B LUkgC8wBDZbQ7lansxvHKkq VBJrw3PntD8ysQPGdERha3Q ppTHziIROcLNmSC8hjuEgIB xSGIwADRZ6aaMwWOVsx1JhX PwhK7mgP52bbPeguQu8bMK7 ATI3vN6mJzc+IFxwYXJccGF yIEFwcHJvcHJpYXRlbHkgcm MaX5WkntTajG4gfJQgguSeE W6fZF6xR0D1jOHbIBLqkgQp l1dfBBfsnbTrFsPbsrWoNEZ rENqqRIYsz1ZpXRnpAVR6IK lucyBpbmNsdWRpbmcgSCZFL HAMePFohOOdWBO6TMtnmmIb wkCfMI8vlY3ypEhznV6nnEI arTN0smbyACJjFFPgkPjfVU BrNT4jmIOkTTUrbbSAtAyaq RIxqF1jE8DwQFDtZCDoxl1p CSRzxY4gYPskw2RlscgdFQH pUBHrFWEipeEbie5vQPYtnX PXNQ0LXAervTNbu2LtmlIuM 7jLUJZ9NOAfGzRuMwieDYOj aFPygIKzTPNkaw97STRybG9 daZpnNWLphW7bmB2ekWzyxR 9mOuAmZuWnYFtjSB9zGCUbB 2wiyMBvOVFlZUTyA6gaVvQj oV7fjVuiENtfLqOgGeHtLRm tTDL5pE== Embedded Images (test code = 6975793542) [facility] METABOLIC PANEL (NA, K, CL, CO2, GLUCOSE, BUN, CREATININE, CA)2022-08-23 10:49:00 Test Item Value Reference Range Interpretation Comments NA (test code = 135 mmol/L 135-145 4468083527) K (test code = 3.6 mmol/L 3.5-5.0 1875912532) CL (test code = 104 mmol/L 98-108 6500601345) CO2 TOTAL (test code = 22 mmol/L 23-31 L 8098457297) AGAP (test code = 9 2-16 2934722962) BUN (test code = 22 mg/dL 7-23 0459041352) GLUCOSE (test code = 98 mg/dL 70-110 2037947157) CREATININE (test code = 0.61 mg/dL 0.50-1.04 5179205207) CALCIUM (test code = 8.7 mg/dL 8.6-10.6 6100169546) eGFR (test code = 105.1 mL/min/1.73m2 8731300328) KINGA (test code = KINGA) Association of Glomerular Filtration Rate (GFR) and Staging of Kidney Disease* + --+ --+ ------+| GFR (mL/min/1.73 m2) ?| With Kidney Damage ?| ?Without Kidney Damage+ --------+ --------+ +| ?>90 ?| ?Stage one ?| ? Normal ?+ ---+ ---+ -------+| ?60-89 ?| ?Stage two ?| ? Decreased GFR ? + --+ --+ ------+| ?30-59 ?| ?Stage three ?| ? Stage three ? + --+ --+ ------+| ?15-29 ?| ?Stage four ? | ? Stage four ?+ ---+ ---+ -------+| ?<15 (or dialysis) ? ?| ?Stage five ? | ? Stage five ?+ ---+ ---+ -------+ *Each stage assumes the associated GFR level has been in effect for at least three months. ?Stages 1 to 5, with or without kidney disease, indicate chronic kidney disease. Notes: Determination of stages one and two (with eGFR >59mL/min/1.73 m2) requires estimation of kidney damage for at least three months as defined by structural or functional abnormalities of the kidney, manifested by either:Pathological abnormalities or Markers of kidney damage (including abnormalities in the composition of the blood or urine or abnormalities in imaging tests). Lab Interpretation Abnormal (test code = 60367-3) [facility] Test Item Value Reference Range Interpretation Comments MAGNESIUM (test code = 0409553604) 1.8 mg/dL 1.7-2.4 Lab Interpretation (test code = Normal 95515-9) [facility] Test Item Value Reference Range Interpretation Comments MAGNESIUM (test code = 9191694587) 1.8 mg/dL 1.7-2.4 Lab Interpretation (test code = Normal 16539-7) [facility] / [id number] 10:27:40 Test Item Value Reference Range Interpretation Comments PROTIME PATIENT (test 12.5 See_Comment [Auto mated message] code = 5964-2) The system [employer] generated this result transmitted ref erence range: 10.1 - 1 2.6 Seconds. The re ference range was not u sed to interpret this result as normal/abnor mal. INR (test code = 6301-6) 1.1 Nor mal INR <1.1; Warfarin Therap eutic range 2.0 to 3. 0 or 2.5 to 3.5, dep ending upon the indica tions. Lab Interpretation (test Normal code = 95305-8) [facility] Test Item Value Reference Range Interpretation Comments APTT Patient (test code = 30 See_Comment [ Automated message] 3173-2) The system [employer] h generated this result transmitted ref erence range: 26 - 36 Seconds. The re ference range was not u sed to interpret this result as normal/abnor mal. Lab Interpretation (test Normal code = 67752-0) [facility] / [id number] 10:27:40 Test Item Value Reference Range Interpretation Comments PROTIME PATIENT (test 12.5 See_Comment [Auto mated message] code = 5964-2) The system wh ich generated this result transmitted ref erence range: 10.1 - 1 2.6 Seconds. The re ference range was not u sed to interpret this result as normal/abnor mal. INR (test code = 6301-6) 1.1 Nor mal INR <1.1; Warfarin Therap eutic range 2.0 to 3. 0 or 2.5 to 3.5, dep ending upon the indica tions. Lab Interpretation (test Normal code = 29768-4) [facility]:27:40 Test Item Value Reference Range Interpretation Comments APTT Patient (test code = 30 See_Comment [ Automated message] 3173-2) The system whic h generated this result transmitted ref erence range: 26 - 36 Seconds. The re ference range was not u sed to interpret this result as normal/abnor mal. Lab Interpretation (test Normal code = 37531-5) [facility] WITH [id number] 10:20:56 Test Item Value Reference Range Interpretation Comments WBC (test code = 10.32 See_Comment [Automated 6690-2) message] The sy stem which generated this result transmitted reference range : 4.30 - 11.10 10*3/?L. The reference range was not used to interpret this result as normal/abnormal . RBC (test code = 3.71 See_Comment L [Automated 729-8) message] The sy stem which generated this result transmitted reference range : 3.93 - 5.25 10*6/?L. The reference range was not used to interpret this result as normal/abnormal . HGB (test code = 10.9 g/dL 11.6-15.0 L 718-7) HCT (test code = 33.1 % 35.7-45.2 L 4544-3) MCV (test code = 89.2 fL 80.6-95.5 787-2) MCH (test code = 29.4 pg 25.9-32.8 785-6) MCHC (test code = 32.9 g/dL 31.6-35.1 786-4) RDW-SD (test code = 42.4 fL 39.0-49.9 27325-3) RDW-CV (test code = 13.1 % 12.0-15.5 788-0) PLT (test code = 366 See_Comment H [Automated 777-3) message] The sy stem which generated this result transmitted reference range : 166 - 358 10*3/ ?L. The reference r pretty was not used to interpret this result as normal/abnormal . MPV (test code = 9.1 fL 9.5-12.9 L 08154-4) NRBC/100 WBC (test 0.0 See_Comment [Automat ed code = [id number]) message] The system which generated this result transmitted reference range : 0.0 - 10.0 /100 WBCs. The refer ence range was not u sed to interpret th is result as normal/abnormal . NRBC x10^3 (test code See_Comment [Auto mated = [id number]) message] The s ystem which generated this result transmitted reference range : 10*3/?L. The reference range was not used to interpret this result as normal/abnormal . GRAN MAT (NEUT) % 63.3 % (test code = 770-8) IMM GRAN % (test code 0.50 % = 8051625981) LYMPH % (test code = 24.1 % 736-9) MONO % (test code = 10.9 % 5905-5) EOS % (test code = 0.9 % 713-8) BASO % (test code = 0.3 % 706-2) GRAN MAT x10^3(ANC) 6.53 10*3/uL 1.88-7.09 (test code = 6779008466) IMM GRAN x10^3 (test 0.05 10*3/uL 0.00-0.06 code = 4130799966) LYMPH x10^3 (test code 2.49 10*3/uL 1.32-3.29 = 731-0) MONO x10^3 (test code 1.13 10*3/uL 0.33-0.92 H = 742-7) EOS x10^3 (test code = 0.09 10*3/uL 0.03-0.39 711-2) BASO x10^3 (test code 0.03 10*3/uL 0.01-0.07 = 704-7) Lab Interpretation Abnormal (test code = 25884-3) [facility] WITH [id number] 10:20:56 Test Item Value Reference Range Interpretation Comments WBC (test code = 10.32 See_Comment [Automated 6690-2) message] The sy stem which generated this result transmitted reference range : 4.30 - 11.10 10*3/?L. The reference range was not used to interpret this result as normal/abnormal . RBC (test code = 3.71 See_Comment L [Automated 789-8) message] The sy stem which generated this result transmitted reference range : 3.93 - 5.25 10*6/?L. The reference range was not used to interpret this result as normal/abnormal . HGB (test code = 10.9 g/dL 11.6-15.0 L 718-7) HCT (test code = 33.1 % 35.7-45.2 L 4544-3) MCV (test code = 89.2 fL 80.6-95.5 787-2) MCH (test code = 29.4 pg 25.9-32.8 785-6) MCHC (test code = 32.9 g/dL 31.6-35.1 786-4) RDW-SD (test code = 42.4 fL 39.0-49.9 24524-0) RDW-CV (test code = 13.1 % 12.0-15.5 788-0) PLT (test code = 366 See_Comment H [Automated 777-3) message] The sy stem which generated this result transmitted reference range : 166 - 358 10*3/ ?L. The reference r pretty was not used to interpret this result as normal/abnormal . MPV (test code = 9.1 fL 9.5-12.9 L 79527-8) NRBC/100 WBC (test 0.0 See_Comment [Automat ed code = 3560558330) message] The system which generated this result transmitted reference range : 0.0 - 10.0 /100 WBCs. The refer ence range was not u sed to interpret th is result as normal/abnormal . NRBC x10^3 (test code See_Comment [Auto mated = 0436721317) message] The s House[employer]stem which generated this result transmitted reference range : 10*3/?L. The reference range was not used to interpret this result as normal/abnormal . GRAN MAT (NEUT) % 63.3 % (test code = 770-8) IMM GRAN % (test code 0.50 % = 9659977868) LYMPH % (test code = 24.1 % 736-9) MONO % (test code = 10.9 % 5905-5) EOS % (test code = 0.9 % 713-8) BASO % (test code = 0.3 % 706-2) GRAN MAT x10^3(ANC) 6.53 10*3/uL 1.88-7.09 (test code = 6177870311) IMM GRAN x10^3 (test 0.05 10*3/uL 0.00-0.06 code = 0913359230) LYMPH x10^3 (test code 2.49 10*3/uL 1.32-3.29 = 731-0) MONO x10^3 (test code 1.13 10*3/uL 0.33-0.92 H = 742-7) EOS x10^3 (test code = 0.09 10*3/uL 0.03-0.39 711-2) BASO x10^3 (test code 0.03 10*3/uL 0.01-0.07 = 704-7) Lab Interpretation Abnormal (test code = 41877-7) [facility] METABOLIC PANEL (NA, K, CL, CO2, GLUCOSE, BUN, CREATININE, CA)2022-08-22 11:36:30 Test Item Value Reference Range Interpretation Comments NA (test code = 134 mmol/L 135-145 L 0691501469) K (test code = 3.9 mmol/L 3.5-5.0 1735569806) CL (test code = 105 mmol/L 98-108 1140200396) CO2 TOTAL (test code = 20 mmol/L 23-31 L 4434600981) AGAP (test code = 9 2-16 7873979739) BUN (test code = 13 mg/dL 7-23 5521874083) GLUCOSE (test code = 117 mg/dL 70-110 H 0328090753) CREATININE (test code = 0.60 mg/dL 0.50-1.04 8848005369) CALCIUM (test code = 9.3 mg/dL 8.6-10.6 4039875154) eGFR (test code = 107.2 mL/min/1.73m2 9341325909) KINGA (test code = KINGA) Association of Glomerular Filtration Rate (GFR) and Staging of Kidney Disease* + --+ --+ ------+| GFR (mL/min/1.73 m2) ?| With Kidney Damage ?| ?Without Kidney Damage+ --------+ --------+ +| ?>90 ?| ?Stage one ?| ? Normal ?+ ---+ ---+ -------+| ?60-89 ?| ?Stage two ?| ? Decreased GFR ? + --+ --+ ------+| ?30-59 ?| ?Stage three ?| ? Stage three ? + --+ --+ ------+| ?15-29 ?| ?Stage four ? | ? Stage four ?+ ---+ ---+ -------+| ?<15 (or dialysis) ? ?| ?Stage five ? | ? Stage five ?+ ---+ ---+ -------+ *Each stage assumes the associated GFR level has been in effect for at least three months. ?Stages 1 to 5, with or without kidney disease, indicate chronic kidney disease. Notes: Determination of stages one and two (with eGFR >59mL/min/1.73 m2) requires estimation of kidney damage for at least three months as defined by structural or functional abnormalities of the kidney, manifested by either:Pathological abnormalities or Markers of kidney damage (including abnormalities in the composition of the blood or urine or abnormalities in imaging tests). Lab Interpretation Abnormal (test code = 84977-6) [facility] METABOLIC PANEL (NA, K, CL, CO2, GLUCOSE, BUN, CREATININE, CA)2022-08-22 11:36:30 Test Item Value Reference Range Interpretation Comments NA (test code = 134 mmol/L 135-145 L 6565227048) K (test code = 3.9 mmol/L 3.5-5.0 7218331922) CL (test code = 105 mmol/L 98-108 7173872754) CO2 TOTAL (test code = 20 mmol/L 23-31 L 4164518099) AGAP (test code = 9 2-16 2248836492) BUN (test code = 13 mg/dL 7-23 9938166057) GLUCOSE (test code = 117 mg/dL 70-110 H 1057147348) CREATININE (test code = 0.60 mg/dL 0.50-1.04 8921947690) CALCIUM (test code = 9.3 mg/dL 8.6-10.6 9351318528) eGFR (test code = 107.2 mL/min/1.73m2 8553369615) KINGA (test code = KINGA) Association of Glomerular Filtration Rate (GFR) and Staging of Kidney Disease* + --+ --+ ------+| GFR (mL/min/1.73 m2) ?| With Kidney Damage ?| ?Without Kidney Damage+ --------+ --------+ +| ?>90 ?| ?Stage one ?| ? Normal ?+ ---+ ---+ -------+| ?60-89 ?| ?Stage two ?| ? Decreased GFR ? + --+ --+ ------+| ?30-59 ?| ?Stage three ?| ? Stage three ? + --+ --+ ------+| ?15-29 ?| ?Stage four ? | ? Stage four ?+ ---+ ---+ -------+| ?<15 (or dialysis) ? ?| ?Stage five ? | ? Stage five ?+ ---+ ---+ -------+ *Each stage assumes the associated GFR level has been in effect for at least three months. ?Stages 1 to 5, with or without kidney disease, indicate chronic kidney disease. Notes: Determination of stages one and two (with eGFR >59mL/min/1.73 m2) requires estimation of kidney damage for at least three months as defined by structural or functional abnormalities of the kidney, manifested by either:Pathological abnormalities or Markers of kidney damage (including abnormalities in the composition of the blood or urine or abnormalities in imaging tests). Lab Interpretation Abnormal (test code = 98305-0) [id number]46 Test Item Value Reference Range Interpretation Comments G6PD SCREEN (test code = Normal Normal 4420089267) KINGA (test code = KINGA) Normal G6PD activity. ?No evidence of G6PD deficiency. Lab Interpretation (test Normal code = 90827-0) [facility] [id number] 17:28:46 Test Item Value Reference Range Interpretation Comments G6PD SCREEN (test code = Normal Normal 4995276177) KINGA (test code = KINGA) Normal G6PD activity. ?No evidence of G6PD deficiency. Lab Interpretation (test Normal code = 36281-2) [facility] [id number] 17:28:46 Test Item Value Reference Range Interpretation Comments G6PD SCREEN (test code = Normal Normal 7782211451) KINGA (test code = KINGA) Normal G6PD activity. ?No evidence of G6PD deficiency. Lab Interpretation (test Normal code = 49272-1) [facility] METABOLIC PANEL (NA, K, CL, CO2, GLUCOSE, BUN, CREATININE, CA)2022-08-17 11:08:49 Test Item Value Reference Range Interpretation Comments NA (test code = 137 mmol/L 135-145 6621096001) K (test code = 3.6 mmol/L 3.5-5.0 6410127637) CL (test code = 105 mmol/L 98-108 8936604316) CO2 TOTAL (test code 25 mmol/L 23-31 = 7903249757) AGAP (test code = 7 2-16 1346154583) BUN (test code = 16 mg/dL 7-23 8808267094) GLUCOSE (test code = 103 mg/dL 70-110 4807997880) CREATININE (test code 0.56 mg/dL 0.50-1.04 = 6849069517) CALCIUM (test code = 8.7 mg/dL 8.6-10.6 6410744398) eGFR (test code = 116.0 mL/min/1.73m2 9694218105) KINGA (test code = KINGA) Association of Glomerular Filtration Rate (GFR) and Staging of Kidney Disease* + + +- +| GFR (mL/min/1.73 m2) ?| With Kidney Damage ?| ?Without Kidney Damage+ ------+ ----+ ------+| ?>90 ?| ?Stage one ?| ? Normal ?+ -+ + -+| ?60-89 ?| ?Stage two ?| ? Decreased GFR ? + + +- +| ?30-59 ?| ?Stage three ?| ? Stage three ? + + +- +| ?15-29 ?| ?Stage four ? | ? Stage four ?+ -+ + -+| ?<15 (or dialysis) ? ?| ?Stage five ? | ? Stage five ?+ -+ + -+ *Each stage assumes the associated GFR level has been in effect for at least three months. ?Stages 1 to 5, with or without kidney disease, indicate chronic kidney disease. Notes: Determination of stages one and two (with eGFR >59mL/min/1.73 m2) requires estimation of kidney damage for at least three months as defined by structural or functional abnormalities of the kidney, manifested by either:Pathological abnormalities or Markers of kidney damage (including abnormalities in the composition of the blood or urine or abnormalities in imaging tests). [facility] Test Item Value Reference Range Interpretation Comments MAGNESIUM (test code = 5484175065) 2.0 mg/dL 1.7-2.4 Lab Interpretation (test code = Normal 67425-0) [facility] (NA, K, CL, CO2, GLUCOSE, BUN, CREATININE, CA)2022-08-17 11:08:49 Test Item Value Reference Range Interpretation Comments NA (test code = 137 mmol/L 135-145 5787013443) K (test code = 3.6 mmol/L 3.5-5.0 4412343142) CL (test code = 105 mmol/L 98-108 6754173162) CO2 TOTAL (test code 25 mmol/L 23-31 = 7006655417) AGAP (test code = 7 2-16 1858164167) BUN (test code = 16 mg/dL 7-23 1717154642) GLUCOSE (test code = 103 mg/dL 70-110 8107371354) CREATININE (test code 0.56 mg/dL 0.50-1.04 = 0114158509) CALCIUM (test code = 8.7 mg/dL 8.6-10.6 8841585359) eGFR (test code = 116.0 mL/min/1.73m2 0193924444) KINGA (test code = KINGA) Association of Glomerular Filtration Rate (GFR) and Staging of Kidney Disease* + + +- +| GFR (mL/min/1.73 m2) ?| With Kidney Damage ?| ?Without Kidney Damage+ ------+ ----+ ------+| ?>90 ?| ?Stage one ?| ? Normal ?+ -+ + -+| ?60-89 ?| ?Stage two ?| ? Decreased GFR ? + + +- +| ?30-59 ?| ?Stage three ?| ? Stage three ? + + +- +| ?15-29 ?| ?Stage four ? | ? Stage four ?+ -+ + -+| ?<15 (or dialysis) ? ?| ?Stage five ? | ? Stage five ?+ -+ + -+ *Each stage assumes the associated GFR level has been in effect for at least three months. ?Stages 1 to 5, with or without kidney disease, indicate chronic kidney disease. Notes: Determination of stages one and two (with eGFR >59mL/min/1.73 m2) requires estimation of kidney damage for at least three months as defined by structural or functional abnormalities of the kidney, manifested by either:Pathological abnormalities or Markers of kidney damage (including abnormalities in the composition of the blood or urine or abnormalities in imaging tests). [facility] 11:08:49 Test Item Value Reference Range Interpretation Comments MAGNESIUM (test code = 6070520257) 2.0 mg/dL 1.7-2.4 Lab Interpretation (test code = Normal 18170-6) [facility] WITHOUT [id number] 10:37:02 Test Item Value Reference Range Interpretation Comments WBC (test code = 6690-2) 8.11 See_Comment [A utomated message] The system [employer] generated this result transmit margie reference range : 4.30 - 11.10 10*3/?L. The reference range was not used to interpret this result as normal/abnormal . RBC (test code = 789-8) 3.51 See_Comment L [Au tomated message] The system [employer] generated this result transmit margie reference range : 3.93 - 5.25 10* 6/?L. The reference r pretty was not used to interpret this result as normal/abnormal . HGB (test code = 718-7) 10.5 g/dL 11.6-15.0 L HCT (test code = 4544-3) 31.4 % 35.7-45.2 L MCH (test code = 785-6) 29.9 pg 25.9-32.8 MCV (test code = 787-2) 89.5 fL 80.6-95.5 MCHC (test code = 786-4) 33.4 g/dL 31.6-35.1 PLT (test code = 777-3) 388 See_Comment H [Au tomated message] The system [facility] generated this result transmit margie reference range : 166 - 358 10*3/?L. The reference range was not used to interpret this result as normal/abnormal . MPV (test code = 9.4 fL 9.5-12.9 L 51863-1) RDW-CV (test code = 12.9 % 12.0-15.5 788-0) RDW-SD (test code = 42.0 fL 39.0-49.9 38600-8) NRBC x10^3 (test code = See_Comment [Au tomated message] 7682286251) The system [employer] generated this result transmit margie reference range : 10*3/?L. The reference range was not used to interpret this result as normal/abnormal . NRBC/100 WBC (test code 0.0 See_Comment [Au tomated message] = 1573704458) The system [facility] generated this result transmit margie reference range : 0.0 - 10.0 /100 WBC s. The reference r pretty was not used to interpret this result as normal/abnormal . IPF % (test code = 7275179064) Lab Interpretation (test Abnormal code = 30123-3) [facility] WITHOUT [id number] 10:37:02 Test Item Value Reference Range Interpretation Comments WBC (test code = 6690-2) 8.11 See_Comment [A utomated message] The system [facility] [employer] generated this result transmit margie reference range : 4.30 - 11.10 10*3/?L. The reference range was not used to interpret this result as normal/abnormal . RBC (test code = 789-8) 3.51 See_Comment L [Au tomated message] The system [employer] generated this result transmit margie reference range : 3.93 - 5.25 10* 6/?L. The reference r pretty was not used to interpret this result as normal/abnormal . HGB (test code = 718-7) 10.5 g/dL 11.6-15.0 L HCT (test code = 4544-3) 31.4 % 35.7-45.2 L MCH (test code = 785-6) 29.9 pg 25.9-32.8 MCV (test code = 787-2) 89.5 fL 80.6-95.5 MCHC (test code = 786-4) 33.4 g/dL 31.6-35.1 PLT (test code = 777-3) 388 See_Comment H [Au tomated message] The [facility] generated this result transmit margie reference range : 166 - 358 10*3/?L. The reference range was not used to interpret this result as normal/abnormal . MPV (test code = 9.4 fL 9.5-12.9 L 58142-8) RDW-CV (test code = 12.9 % 12.0-15.5 788-0) RDW-SD (test code = 42.0 fL 39.0-49.9 43399-2) NRBC x10^3 (test code = See_Comment [Au tomated message] [id number]) The system [employer] generated this result transmit margie reference range : 10*3/?L. The reference range was not used to interpret this result as normal/abnormal . NRBC/100 WBC (test code 0.0 See_Comment [Au tomated message] = 5690923466) The system [facility] generated this result transmit margie reference range : 0.0 - 10.0 /100 WBC s. The reference r pretty was not used to interpret this result as normal/abnormal . IPF % (test code = 4408144144) Lab Interpretation (test Abnormal code = 37699-2) [facility] 20:12:07 Test Item Value Reference Range Interpretation Comments Procalcitonin (test <=0.07 code = 6374325728) KINGA (test code = KINGA) INTERPRETATION OF PROCALCITONIN RESULTS IN ADULTS >= 18 YEARS OF AGE Initiation and discontinuation of antibiotics on patients with suspected or confirmed Lower Respiratory Tract Infection in Adults >= 18 years of age. + +-------- --------+ + -----+|Procalcitonin |Interpretation ?|Antibiotic ? ? |Considerations ? |ng/mL ? | ?|recommendation | ? + +-------- --------+ + -----+| <0.1 ? | Bacterial ? ? ?| Strongly ? ? ?| ? | ?| infection very | discouraged ? | Overruling: ? | ?| unlikely ? ? ? | ? | ? Clinically unstable ? ? ? + +-------- --------+ + ? High risk for adverse ? ? | <0.25 ?| Bacterial ? ? ?| Discouraged ? | ? outcome ? | ?| infection ? ? ?| ? | ? SEE IMPORTANT NOTE ?| ?| unlikely ? ? ? | ? | ? + +-------- --------+ + -----+| >=0.25 ? ? ? | Bacterial ? ? ?| Encouraged ? ?| ? | ?| infection ? ? ?| ? | ? | ?| likely ? | ? | Consider treatment failure ?+ +------- ---------+ -+ if levels does not decrease | >0.5 ? | Bacterial ? ? ?| Strongly ? ? ?| appropriately ? | ?| infection very | encouraged ? ?| ? | ?| likely ? | ? | ? + +-------- --------+ + -----+ Discontinuation of antibiotics in high-acuity patients with suspected or confirmed sepsis in Adults >= 18 years of age. + +-------- --------+ + -----+|Procalcitonin |Interpretation ?|Antibiotic ? ? |Considerations ? |ng/mL ? | ?|recommendation | ? + +-------- --------+ + -----+| <0.25 ?| Bacterial ? ? ?| Strongly ? ? ?| ? | ?| infection very | discouraged ? | Overruling: ? | ?| unlikely ? ? ? | ? | ? Clinically unstable ? ? ? + +-------- --------+ + ? High risk for adverse ? ? | <0.5 or drop | Bacterial ? ? ?| Discouraged ? | ? outcome ? | >80% from ? ?| infection ? ? ?| ? | ? SEE IMPORTANT NOTE ?| highest PCT ?| unlikely ? ? ? | ? | ? | level ?| ?| ? | ? + +-------- --------+ + -----+| >=0.5 ?| Bacterial ? ? ?| Encouraged ? ?| ? | ?| infection ? ? ?| ? | ? | ?| likely ? | ? | Consider treatment failure ?+ +------- ---------+ -+ if levels does not decrease | >1.0 ? | Bacterial ? ? ?| Strongly ? ? ?| appropriately ? | ?| infection very | encouraged ? ?| ? | ?| likely ? | ? | ? + +-------- --------+ + -----+ Percentage of drop of Procalcitonin calculation for Discontinuation of antibiotics in high-acuity patients with suspected or confirmed sepsis in Adults >= 18 years of age. ? Procalcitonin highest{}-Procalcitonin current{}Delta Procalcitonin = x100% ? Procalcitonin current {} IMPORTANT NOTE: Procalcitonin may be elevated without bacterial infection by physiologic stress related to trauma, gilbert, chronic dialysis, metastatic cancer, surgery in the past seven days, malaria, some fungal infections, and some forms of vasculitis. The interpretation algorithm may not apply to patients with immunosuppression (equivalent of >10 mg of prednisone daily), HIV with CD4 cell count < 350 cells/mm3, active malignancy on systemic chemotherapy, solid organ transplant or hematopoietic stem cell transplantation, or hospital acquired pneumonia. Additionally, some clinical trials of procalcitonin have excluded patients with shock requiring vasopressor use, acute respiratory failure requiring mechanical ventilation, or those with known lung abscess/empyema. For further information please refer to:[email or web address] Lab Interpretation Normal (test code = 33542-0) [facility] 20:12:07 Test Item Value Reference Range Interpretation Comments Procalcitonin (test <=0.07 code = 4135481582) KINGA (test code = KINGA) INTERPRETATION OF PROCALCITONIN RESULTS IN ADULTS >= 18 YEARS OF AGE Initiation and discontinuation of antibiotics on patients with suspected or confirmed Lower Respiratory Tract Infection in Adults >= 18 years of age. + +-------- --------+ + -----+|Procalcitonin |Interpretation ?|Antibiotic ? ? |Considerations ? |ng/mL ? | ?|recommendation | ? + +-------- --------+ + -----+| <0.1 ? | Bacterial ? ? ?| Strongly ? ? ?| ? | ?| infection very | discouraged ? | Overruling: ? | ?| unlikely ? ? ? | ? | ? Clinically unstable ? ? ? + +-------- --------+ + ? High risk for adverse ? ? | <0.25 ?| Bacterial ? ? ?| Discouraged ? | ? outcome ? | ?| infection ? ? ?| ? | ? SEE IMPORTANT NOTE ?| ?| unlikely ? ? ? | ? | ? + +-------- --------+ + -----+| >=0.25 ? ? ? | Bacterial ? ? ?| Encouraged ? ?| ? | ?| infection ? ? ?| ? | ? | ?| likely ? | ? | Consider treatment failure ?+ +------- ---------+ -+ if levels does not decrease | >0.5 ? | Bacterial ? ? ?| Strongly ? ? ?| appropriately ? | ?| infection very | encouraged ? ?| ? | ?| likely ? | ? | ? + +-------- --------+ + -----+ Discontinuation of antibiotics in high-acuity patients with suspected or confirmed sepsis in Adults >= 18 years of age. + +-------- --------+ + -----+|Procalcitonin |Interpretation ?|Antibiotic ? ? |Considerations ? |ng/mL ? | ?|recommendation | ? + +-------- --------+ + -----+| <0.25 ?| Bacterial ? ? ?| Strongly ? ? ?| ? | ?| infection very | discouraged ? | Overruling: ? | ?| unlikely ? ? ? | ? | ? Clinically unstable ? ? ? + +-------- --------+ + ? High risk for adverse ? ? | <0.5 or drop | Bacterial ? ? ?| Discouraged ? | ? outcome ? | >80% from ? ?| infection ? ? ?| ? | ? SEE IMPORTANT NOTE ?| highest PCT ?| unlikely ? ? ? | ? | ? | level ?| ?| ? | ? + +-------- --------+ + -----+| >=0.5 ?| Bacterial ? ? ?| Encouraged ? ?| ? | ?| infection ? ? ?| ? | ? | ?| likely ? | ? | Consider treatment failure ?+ +------- ---------+ -+ if levels does not decrease | >1.0 ? | Bacterial ? ? ?| Strongly ? ? ?| appropriately ? | ?| infection very | encouraged ? ?| ? | ?| likely ? | ? | ? + +-------- --------+ + -----+ Percentage of drop of Procalcitonin calculation for Discontinuation of antibiotics in high-acuity patients with suspected or confirmed sepsis in Adults >= 18 years of age. ? Procalcitonin highest{}-Procalcitonin current{}Delta Procalcitonin = x100% ? Procalcitonin current {} IMPORTANT NOTE: Procalcitonin may be elevated without bacterial infection by physiologic stress related to trauma, gilbert, chronic dialysis, metastatic cancer, surgery in the past seven days, malaria, some fungal infections, and some forms of vasculitis. The interpretation algorithm may not apply to patients with immunosuppression (equivalent of >10 mg of prednisone daily), HIV with CD4 cell count < 350 cells/mm3, active malignancy on systemic chemotherapy, solid organ transplant or hematopoietic stem cell transplantation, or hospital acquired pneumonia. Additionally, some clinical trials of procalcitonin have excluded patients with shock requiring vasopressor use, acute respiratory failure requiring mechanical ventilation, or those with known lung abscess/empyema. For further information please refer to:[email or web address] Lab Interpretation Normal (test code = 32257-1) [facility] 20:12:07 Test Item Value Reference Range Interpretation Comments Procalcitonin (test <=0.07 code = 8450596156) KINGA (test code = KINGA) INTERPRETATION OF PROCALCITONIN RESULTS IN ADULTS >= 18 YEARS OF AGE Initiation and discontinuation of antibiotics on patients with suspected or confirmed Lower Respiratory Tract Infection in Adults >= 18 years of age. + +-------- --------+ + -----+|Procalcitonin |Interpretation ?|Antibiotic ? ? |Considerations ? |ng/mL ? | ?|recommendation | ? + +-------- --------+ + -----+| <0.1 ? | Bacterial ? ? ?| Strongly ? ? ?| ? | ?| infection very | discouraged ? | Overruling: ? | ?| unlikely ? ? ? | ? | ? Clinically unstable ? ? ? + +-------- --------+ + ? High risk for adverse ? ? | <0.25 ?| Bacterial ? ? ?| Discouraged ? | ? outcome ? | ?| infection ? ? ?| ? | ? SEE IMPORTANT NOTE ?| ?| unlikely ? ? ? | ? | ? + +-------- --------+ + -----+| >=0.25 ? ? ? | Bacterial ? ? ?| Encouraged ? ?| ? | ?| infection ? ? ?| ? | ? | ?| likely ? | ? | Consider treatment failure ?+ +------- ---------+ -+ if levels does not decrease | >0.5 ? | Bacterial ? ? ?| Strongly ? ? ?| appropriately ? | ?| infection very | encouraged ? ?| ? | ?| likely ? | ? | ? + +-------- --------+ + -----+ Discontinuation of antibiotics in high-acuity patients with suspected or confirmed sepsis in Adults >= 18 years of age. + +-------- --------+ + -----+|Procalcitonin |Interpretation ?|Antibiotic ? ? |Considerations ? |ng/mL ? | ?|recommendation | ? + +-------- --------+ + -----+| <0.25 ?| Bacterial ? ? ?| Strongly ? ? ?| ? | ?| infection very | discouraged ? | Overruling: ? | ?| unlikely ? ? ? | ? | ? Clinically unstable ? ? ? + +-------- --------+ + ? High risk for adverse ? ? | <0.5 or drop | Bacterial ? ? ?| Discouraged ? | ? outcome ? | >80% from ? ?| infection ? ? ?| ? | ? SEE IMPORTANT NOTE ?| highest PCT ?| unlikely ? ? ? | ? | ? | level ?| ?| ? | ? + +-------- --------+ + -----+| >=0.5 ?| Bacterial ? ? ?| Encouraged ? ?| ? | ?| infection ? ? ?| ? | ? | ?| likely ? | ? | Consider treatment failure ?+ +------- ---------+ -+ if levels does not decrease | >1.0 ? | Bacterial ? ? ?| Strongly ? ? ?| appropriately ? | ?| infection very | encouraged ? ?| ? | ?| likely ? | ? | ? + +-------- --------+ + -----+ Percentage of drop of Procalcitonin calculation for Discontinuation of antibiotics in high-acuity patients with suspected or confirmed sepsis in Adults >= 18 years of age. ? Procalcitonin highest{}-Procalcitonin current{}Delta Procalcitonin = x100% ? Procalcitonin current {} IMPORTANT NOTE: Procalcitonin may be elevated without bacterial infection by physiologic stress related to trauma, gilbert, chronic dialysis, metastatic cancer, surgery in the past seven days, malaria, some fungal infections, and some forms of vasculitis. The interpretation algorithm may not apply to patients with immunosuppression (equivalent of >10 mg of prednisone daily), HIV with CD4 cell count < 350 cells/mm3, active malignancy on systemic chemotherapy, solid organ transplant or hematopoietic stem cell transplantation, or hospital acquired pneumonia. Additionally, some clinical trials of procalcitonin have excluded patients with shock requiring vasopressor use, acute respiratory failure requiring mechanical ventilation, or those with known lung abscess/empyema. For further information please refer to:[email or web address] Lab Interpretation Normal (test code = 25932-3) [facility] [id number] 19:35:55 Test Item Value Reference Range Interpretation Comments LDH (test code = 9008898386) 186 U/L 120-246 Lab Interpretation (test code = Normal 79542-0) [facility] [id number] 19:35:55 Test Item Value Reference Range Interpretation Comments LDH (test code = 5414432947) 186 U/L 120-246 Lab Interpretation (test code = Normal 87302-7) [facility] WITH [id number] 19:14:31 Test Item Value Reference Range Interpretation Comments WBC (test code = 7.87 See_Comment [Automated 6690-2) message] The sy stem which generated this result transmitted reference range : 4.30 - 11.10 10*3/?L. The reference range was not used to interpret this result as normal/abnormal . RBC (test code = 3.73 See_Comment L [Automated 789-8) message] The sy stem which generated this result transmitted reference range : 3.93 - 5.25 10*6/?L. The reference range was not used to interpret this result as normal/abnormal . HGB (test code = 11.0 g/dL 11.6-15.0 L 718-7) HCT (test code = 33.4 % 35.7-45.2 L 4544-3) MCV (test code = 89.5 fL 80.6-95.5 787-2) MCH (test code = 29.5 pg 25.9-32.8 785-6) MCHC (test code = 32.9 g/dL 31.6-35.1 786-4) RDW-SD (test code = 42.0 fL 39.0-49.9 77882-5) RDW-CV (test code = 12.7 % 12.0-15.5 788-0) PLT (test code = 420 See_Comment H [Automated 777-3) message] The sy stem which generated this result transmitted reference range : 166 - 358 10*3/ ?L. The reference r pretty was not used to interpret this result as normal/abnormal . MPV (test code = 9.3 fL 9.5-12.9 L 06983-3) NRBC/100 WBC (test 0.0 See_Comment [Automat ed code = 4201146863) message] The system which generated this result transmitted reference range : 0.0 - 10.0 /100 WBCs. The refer ence range was not u sed to interpret th is result as normal/abnormal . NRBC x10^3 (test code See_Comment [Auto mated = 6513932646) message] The s ystem which generated this result transmitted reference range : 10*3/?L. The reference range was not used to interpret this result as normal/abnormal . GRAN MAT (NEUT) % 81.2 % (test code = 770-8) IMM GRAN % (test code 0.90 % = 0376749531) LYMPH % (test code = 12.3 % 736-9) MONO % (test code = 5.5 % 5905-5) EOS % (test code = 0.0 % 713-8) BASO % (test code = 0.1 % 706-2) GRAN MAT x10^3(ANC) 6.39 10*3/uL 1.88-7.09 (test code = 7035358188) IMM GRAN x10^3 (test 0.07 10*3/uL 0.00-0.06 H code = 6902089175) LYMPH x10^3 (test code 0.97 10*3/uL 1.32-3.29 L = 731-0) MONO x10^3 (test code 0.43 10*3/uL 0.33-0.92 = 742-7) EOS x10^3 (test code = 0.03-0.39 L 711-2) BASO x10^3 (test code 0.01-0.07 = 704-7) Lab Interpretation Abnormal (test code = 18229-2) [facility] WITH [id number] 19:14:31 Test Item Value Reference Range Interpretation Comments WBC (test code = 7.87 See_Comment [Automated 4190-2) message] The sy stem which generated this result transmitted reference range : 4.30 - 11.10 10*3/?L. The reference range was not used to interpret this result as normal/abnormal . RBC (test code = 3.73 See_Comment L [Automated 779-8) message] The sy stem which generated this result transmitted reference range : 3.93 - 5.25 10*6/?L. The reference range was not used to interpret this result as normal/abnormal . HGB (test code = 11.0 g/dL 11.6-15.0 L 718-7) HCT (test code = 33.4 % 35.7-45.2 L 4544-3) MCV (test code = 89.5 fL 80.6-95.5 787-2) MCH (test code = 29.5 pg 25.9-32.8 785-6) MCHC (test code = 32.9 g/dL 31.6-35.1 786-4) RDW-SD (test code = 42.0 fL 39.0-49.9 27764-5) RDW-CV (test code = 12.7 % 12.0-15.5 788-0) PLT (test code = 420 See_Comment H [Automated 777-3) message] The sy stem which generated this result transmitted reference range : 166 - 358 10*3/ ?L. The reference r pretty was not used to interpret this result as normal/abnormal . MPV (test code = 9.3 fL 9.5-12.9 L 96807-1) NRBC/100 WBC (test 0.0 See_Comment [Automat ed code = 8194971535) message] The system which generated this result transmitted reference range : 0.0 - 10.0 /100 WBCs. The refer ence range was not u sed to interpret th is result as normal/abnormal . NRBC x10^3 (test code See_Comment [Auto mated = 5817908769) message] The s ystem which generated this result transmitted reference range : 10*3/?L. The reference range was not used to interpret this result as normal/abnormal . GRAN MAT (NEUT) % 81.2 % (test code = 770-8) IMM GRAN % (test code 0.90 % = 4218544142) LYMPH % (test code = 12.3 % 736-9) MONO % (test code = 5.5 % 5905-5) EOS % (test code = 0.0 % 713-8) BASO % (test code = 0.1 % 706-2) GRAN MAT x10^3(ANC) 6.39 10*3/uL 1.88-7.09 (test code = 4066979755) IMM GRAN x10^3 (test 0.07 10*3/uL 0.00-0.06 H code = 8376445176) LYMPH x10^3 (test code 0.97 10*3/uL 1.32-3.29 L = 731-0) MONO x10^3 (test code 0.43 10*3/uL 0.33-0.92 = 742-7) EOS x10^3 (test code = 0.03-0.39 L 711-2) BASO x10^3 (test code 0.01-0.07 = 704-7) Lab Interpretation Abnormal (test code = 21822-4) [facility]. METABOLIC PANEL ([id number])2022-08-15 23:38:40 Test Item Value Reference Range Interpretation Comments NA (test code = 136 mmol/L 135-145 3835508689) K (test code = 4.3 mmol/L 3.5-5.0 2946342202) CL (test code = 102 mmol/L 98-108 6434313521) CO2 TOTAL (test code 24 mmol/L 23-31 = 6048413433) AGAP (test code = 10 2-16 1309206959) BUN (test code = 8 mg/dL 7-23 0588169588) GLUCOSE (test code = 103 mg/dL 70-110 7435362906) CREATININE (test code 0.56 mg/dL 0.50-1.04 = 9672266675) TOTAL BILI (test code 0.6 mg/dL 0.1-1.1 = 2483147351) CALCIUM (test code = 9.2 mg/dL 8.6-10.6 4644172514) T PROTEIN (test code 7.7 g/dL 6.3-8.2 = 6187745480) ALBUMIN (test code = 4.3 g/dL 3.5-5.0 2132591165) ALK PHOS (test code = 110 U/L 34-122 5492430519) ALTv (test code = 17 U/L 5-35 1742-6) AST(SGOT) (test code 20 U/L 13-40 = 1296031401) eGFR (test code = 116.0 mL/min/1.73m2 9621400928) KINGA (test code = KINGA) Association of Glomerular Filtration Rate (GFR) and Staging of Kidney Disease* + + +- +| GFR (mL/min/1.73 m2) ?| With Kidney Damage ?| ?Without Kidney Damage+ ------+ ----+ ------+| ?>90 ?| ?Stage one ?| ? Normal ?+ -+ + -+| ?60-89 ?| ?Stage two ?| ? Decreased GFR ? + + +- +| ?30-59 ?| ?Stage three ?| ? Stage three ? + + +- +| ?15-29 ?| ?Stage four ? | ? Stage four ?+ -+ + -+| ?<15 (or dialysis) ? ?| ?Stage five ? | ? Stage five ?+ -+ + -+ *Each stage assumes the associated GFR level has been in effect for at least three months. ?Stages 1 to 5, with or without kidney disease, indicate chronic kidney disease. Notes: Determination of stages one and two (with eGFR >59mL/min/1.73 m2) requires estimation of kidney damage for at least three months as defined by structural or functional abnormalities of the kidney, manifested by either:Pathological abnormalities or Markers of kidney damage (including abnormalities in the composition of the blood or urine or abnormalities in imaging tests). [facility]. METABOLIC PANEL ([id number])2022-08-15 23:38:40 Test Item Value Reference Range Interpretation Comments NA (test code = 136 mmol/L 135-145 7965783434) K (test code = 4.3 mmol/L 3.5-5.0 2165782777) CL (test code = 102 mmol/L 98-108 6836195780) CO2 TOTAL (test code 24 mmol/L 23-31 = 8947086314) AGAP (test code = 10 2-16 [id number]) BUN (test code = 8 mg/dL 7-23 9334898598) GLUCOSE (test code = 103 mg/dL 70-110 8825373710) CREATININE (test code 0.56 mg/dL 0.50-1.04 = 3318300181) TOTAL BILI (test code 0.6 mg/dL 0.1-1.1 = 7600636613) CALCIUM (test code = 9.2 mg/dL 8.6-10.6 8224944964) T PROTEIN (test code 7.7 g/dL 6.3-8.2 = 6496987941) ALBUMIN (test code = 4.3 g/dL 3.5-5.0 6506557603) ALK PHOS (test code = 110 U/L 34-122 6744712811) ALTv (test code = 17 U/L 5-35 1742-6) AST(SGOT) (test code 20 U/L 13-40 = 5829618717) eGFR (test code = 116.0 mL/min/1.73m2 6702716535) KINGA (test code = KINGA) Association of Glomerular Filtration Rate (GFR) and Staging of Kidney Disease* + + +- +| GFR (mL/min/1.73 m2) ?| With Kidney Damage ?| ?Without Kidney Damage+ ------+ ----+ ------+| ?>90 ?| ?Stage one ?| ? Normal ?+ -+ + -+| ?60-89 ?| ?Stage two ?| ? Decreased GFR ? + + +- +| ?30-59 ?| ?Stage three ?| ? Stage three ? + + +- +| ?15-29 ?| ?Stage four ? | ? Stage four ?+ -+ + -+| ?<15 (or dialysis) ? ?| ?Stage five ? | ? Stage five ?+ -+ + -+ *Each stage assumes the associated GFR level has been in effect for at least three months. ?Stages 1 to 5, with or without kidney disease, indicate chronic kidney disease. Notes: Determination of stages one and two (with eGFR >59mL/min/1.73 m2) requires estimation of kidney damage for at least three months as defined by structural or functional abnormalities of the kidney, manifested by either:Pathological abnormalities or Markers of kidney damage (including abnormalities in the composition of the blood or urine or abnormalities in imaging tests). [facility] WITH [id number] 23:25:57 Test Item Value Reference Range Interpretation Comments WBC (test code = 9.36 See_Comment [Automated 6690-2) message] The sy stem which generated this result transmitted reference range : 4.30 - 11.10 10*3/?L. The reference range was not used to interpret this result as normal/abnormal . RBC (test code = 3.80 See_Comment L [Automated 789-8) message] The sy stem which generated this result transmitted reference range : 3.93 - 5.25 10*6/?L. The reference range was not used to interpret this result as normal/abnormal . HGB (test code = 11.1 g/dL 11.6-15.0 L 718-7) HCT (test code = 34.5 % 35.7-45.2 L 4544-3) MCV (test code = 90.8 fL 80.6-95.5 787-2) MCH (test code = 29.2 pg 25.9-32.8 785-6) MCHC (test code = 32.2 g/dL 31.6-35.1 786-4) RDW-SD (test code = 42.3 fL 39.0-49.9 29541-3) RDW-CV (test code = 12.7 % 12.0-15.5 788-0) PLT (test code = 432 See_Comment H [Automated 777-3) message] The sy stem which generated this result transmitted reference range : 166 - 358 10*3/ ?L. The reference r pretty was not used to interpret this result as normal/abnormal . MPV (test code = 9.5 fL 9.5-12.9 72607-0) NRBC/100 WBC (test 0.0 See_Comment [Automat ed code = 8082591619) message] The system which generated this result transmitted reference range : 0.0 - 10.0 /100 WBCs. The refer ence range was not u sed to interpret th is result as normal/abnormal . NRBC x10^3 (test code See_Comment [Auto mated = 2363596222) message] The s ystem which generated this result transmitted reference range : 10*3/?L. The reference range was not used to interpret this result as normal/abnormal . GRAN MAT (NEUT) % 64.3 % (test code = 770-8) IMM GRAN % (test code 0.50 % = 1342097944) LYMPH % (test code = 21.6 % 736-9) MONO % (test code = 11.9 % 5905-5) EOS % (test code = 1.3 % 713-8) BASO % (test code = 0.4 % 706-2) GRAN MAT x10^3(ANC) 6.02 10*3/uL 1.88-7.09 (test code = 8601947586) IMM GRAN x10^3 (test 0.05 10*3/uL 0.00-0.06 code = 3673287028) LYMPH x10^3 (test code 2.02 10*3/uL 1.32-3.29 = 731-0) MONO x10^3 (test code 1.11 10*3/uL 0.33-0.92 H = 742-7) EOS x10^3 (test code = 0.12 10*3/uL 0.03-0.39 711-2) BASO x10^3 (test code 0.04 10*3/uL 0.01-0.07 = 704-7) Lab Interpretation Abnormal (test code = 52933-0) [facility] WITH [id number] 23:25:57 Test Item Value Reference Range Interpretation Comments WBC (test code = 9.36 See_Comment [Automated 8590-2) message] The sy stem which generated this result transmitted reference range : 4.30 - 11.10 10*3/?L. The reference range was not used to interpret this result as normal/abnormal . RBC (test code = 3.80 See_Comment L [Automated 239-8) message] The sy stem which generated this result transmitted reference range : 3.93 - 5.25 10*6/?L. The reference range was not used to interpret this result as normal/abnormal . HGB (test code = 11.1 g/dL 11.6-15.0 L 718-7) HCT (test code = 34.5 % 35.7-45.2 L 4544-3) MCV (test code = 90.8 fL 80.6-95.5 787-2) MCH (test code = 29.2 pg 25.9-32.8 785-6) MCHC (test code = 32.2 g/dL 31.6-35.1 786-4) RDW-SD (test code = 42.3 fL 39.0-49.9 50461-1) RDW-CV (test code = 12.7 % 12.0-15.5 788-0) PLT (test code = 432 See_Comment H [Automated 777-3) message] The sy stem which generated this result transmitted reference range : 166 - 358 10*3/ ?L. The reference r pretty was not used to interpret this result as normal/abnormal . MPV (test code = 9.5 fL 9.5-12.9 63466-4) NRBC/100 WBC (test 0.0 See_Comment [Automat ed code = 6482488852) message] The system which generated this result transmitted reference range : 0.0 - 10.0 /100 WBCs. The refer ence range was not u sed to interpret th is result as normal/abnormal . NRBC x10^3 (test code See_Comment [Auto mated = 2107843506) message] The s ystem which generated this result transmitted reference range : 10*3/?L. The reference range was not used to interpret this result as normal/abnormal . GRAN MAT (NEUT) % 64.3 % (test code = 770-8) IMM GRAN % (test code 0.50 % = 7972414080) LYMPH % (test code = 21.6 % 736-9) MONO % (test code = 11.9 % 5905-5) EOS % (test code = 1.3 % 713-8) BASO % (test code = 0.4 % 706-2) GRAN MAT x10^3(ANC) 6.02 10*3/uL 1.88-7.09 (test code = 0074410973) IMM GRAN x10^3 (test 0.05 10*3/uL 0.00-0.06 code = 7928260917) LYMPH x10^3 (test code 2.02 10*3/uL 1.32-3.29 = 731-0) MONO x10^3 (test code 1.11 10*3/uL 0.33-0.92 H = 742-7) EOS x10^3 (test code = 0.12 10*3/uL 0.03-0.39 711-2) BASO x10^3 (test code 0.04 10*3/uL 0.01-0.07 = 704-7) Lab Interpretation Abnormal (test code = 87129-9) [facility]"
[2022-10-05 21:37] LABS: SARS-CoV-2 Antigen Rapid Res Negative (Negative)
--- NOTE | 2022-10-05 21:44 | RAD REPORT ---
EXAM DESCRIPTION: [place] Pa And Lat (2 Views)10/05/2022 9:35 pm CLINICAL HISTORY: Cough COMPARISON: July 2022 FINDINGS: Mild right basilar opacity. Mild elevation right hemidiaphragm Left lung appears clear. Heart is normal size. A stent overlies the ascending thoracic aorta IMPRESSION: Mild right basilar opacity probably pneumonia
--- NOTE | 2022-10-05 21:54 | ER ---
Nurse's Notes [facility] Name: Judit Cox Age: 47 yrs Sex: Female : 1975 Arrival Date: 10/05/2022 Time: 20:47 Bed 11 Private MD: Diagnosis: Other pneumonia, unspecified organism Presentation: 10/05 21:10 Chief complaint: Patient states: I have been coughing for two days with a fever and ear kd3 pain. I just started immuno therapy on 09/25/22. I also have stage 4 lung cancer. Coronavirus screen: Vaccine status:. Ebola Screen: No symptoms or risks identified at this time. Initial Sepsis Screen: Does the patient meet any 2 criteria? No. Patient's initial sepsis screen is negative. Does the patient have a suspected source of infection? No. Patient's initial sepsis screen is negative. Risk Assessment: Do you want to hurt yourself or someone else? Patient reports no desire to harm self or others. Onset of symptoms was October 05, 2022. 21:10 Method Of Arrival: Ambulatory kd3 21:10 Acuity: SEE 3 kd3 Triage Assessment: 21:12 General: Appears uncomfortable, Behavior is calm, cooperative. Pain: Complains of pain kd3 in right ear, left ear and mouth. Respiratory: Reports shortness of breath Onset: The symptoms/episode began/occurred gradually, the patient has moderate shortness of breath. Historical: - Allergies: 21:11 Coconut; kd3 21:12 Z Pack; kd3 - PSHx: 21:12 Cholecystectomy; Total abdominal hysterectomy; kd3 - Immunization history:: Adult Immunizations up to date. - Social history:: Smoking status: unknown. Screenin:38 [facility] ED Fall Risk Assessment (Adult) History of falling in the last 3 months, kd3 including since admission No falls in past 3 months (0 pts) Confusion or Disorientation No (0 pts) Intoxicated or Sedated No (0 pts) Impaired Gait No (0 pts) Mobility Assist Device Used No (0 pt) Altered Elimination No (0 pt) Score/Fall Risk Level 0 - 2 = Low Risk Maintained a safe environment. Abuse screen: Denies threats or abuse. Denies injuries from another. Nutritional screening: No deficits noted. Tuberculosis screening: No symptoms or risk factors identified. Assessment: 22:39 Cardiovascular: Rhythm is regular. Respiratory: Airway is patent Respiratory effort is kd3 even, unlabored, Breath sounds are clear. Vital Signs: 21:02 BP 132 / 81; Pulse 121; Resp 22; Temp 99.4; Pulse Ox 99% on R/A; Weight 83.01 kg; rv1 Height 5 ft. 9 in. ; 21:02 Body Mass Index 27.02 (83.01 kg, 175.26 cm) rv1 ED Course: 20:49 Patient arrived in ED. jj6 20:56 Judit Reynoso FNP-C is PHCP. snw 20:56 Chang Carter MD is Attending Physician. snw 21:11 Triage completed. kd3 21:12 Arm band placed on. kd3 21:37 XRAY Chest Pa And Lat (2 Views) In Process Unspecified. EDMS 22:04 Jaclyn Gomez, CHELE is Primary Nurse. kd3 22:39 Patient has correct armband on for positive identification. kd3 22:39 No provider procedures requiring assistance completed. Patient did not have IV access kd3 during this emergency room visit. Administered Medications: 22:22 Drug: Rocephin (cefTRIAXone) IM 1 grams Route: IM; Site: left gluteus; kd3 22:40 Follow up: Response: No adverse reaction kd3 22:22 Drug: Tessalon Perle PO 200 mg Route: PO; kd3 22:40 Follow up: Response: No adverse reaction kd3 22:22 Drug: LevOfloxacin PO 500 mg Route: PO; kd3 22:39 Follow up: Response: No adverse reaction kd3 Medication: 22:39 VIS not applicable for this client. kd3 Outcome: 21:54 Discharge ordered by . snw 22:39 Discharged to home ambulatory. kd3 22:39 Condition: stable 22:39 Discharge instructions given to patient, Instructed on discharge instructions, follow up and referral plans. Demonstrated understanding of instructions, follow-up care. 22:40 Patient left the ED. kd3 Signatures: Dispatcher [employer] EDMS Judit Reynoso FNP-C JUDO INSTRUCTOR-Csnw Sammie Lynn jj6 Jaclyn Gomez, RN RN kd3 Lora Andrew rv1
--- NOTE | 2022-10-05 21:54 | EDPHYS ---
Physician Documentation [facility] Name: Judit Cox Age: 47 yrs Sex: Female : 1975 Arrival Date: 10/05/2022 Time: 20:47 Bed 11 Private MD: ED Physician Chang Carter HPI: 10/05 21:34 This 47 yrs old Female presents to ER via Ambulatory with complaints of Fever, Cough, snw Shortness Of Breath. 21:34 The patient reports fever, that was measured at 101 degrees Fahrenheit, with a pattern snw that is constant. Onset: The symptoms/episode began/occurred acutely, 2 day(s) ago, and became persistent. Modifying factors: immune suppression, stage 4 lung cancer (new dx). Associated signs and symptoms: Pertinent positives: cough, earache, sore throat. Severity of symptoms: At their worst the symptoms were moderate. It is unknown whether or not the patient has had similar symptoms in the past. It is unknown whether or not the patient has recently seen a physician. Historical: - Allergies: 21:11 Coconut; kd3 21:12 Z Pack; kd3 - PSHx: 21:12 Cholecystectomy; Total abdominal hysterectomy; kd3 - Immunization history:: Adult Immunizations up to date. - Social history:: Smoking status: unknown. ROS: 21:33 Eyes: Negative for injury, pain, redness, and discharge, ENT: Negative for injury, snw pain, and discharge, Neck: Negative for injury, pain, and swelling, Cardiovascular: Negative for chest pain, palpitations, and edema. 21:33 Abdomen/GI: Negative for abdominal pain, nausea, vomiting, diarrhea, and constipation, Back: Negative for injury and pain, : Negative for injury, bleeding, discharge, and swelling, MS/Extremity: Negative for injury and deformity, Skin: Negative for injury, rash, and discoloration, Neuro: Negative for headache, weakness, numbness, tingling, and seizure, Psych: Negative for depression, anxiety, suicide ideation, homicidal ideation, and hallucinations. 21:33 Constitutional: Positive for body aches, fever, malaise. 21:33 Respiratory: Positive for cough, shortness of breath. Exam: 21:32 Head/Face: Normocephalic, atraumatic. Eyes: Pupils equal round and reactive to light, snw extra-ocular motions intact. Lids and lashes normal. Conjunctiva and sclera are non-icteric and not injected. Cornea within normal limits. Periorbital areas with no swelling, redness, or edema. ENT: Nares patent. No nasal discharge, no septal abnormalities noted. Tympanic membranes are normal and external auditory canals are clear. Oropharynx with no redness, swelling, or masses, exudates, or evidence of obstruction, uvula midline. Mucous membranes moist. Neck: Trachea midline, no thyromegaly or masses palpated, and no cervical lymphadenopathy. Supple, full range of motion without nuchal rigidity, or vertebral point tenderness. No Meningismus. Chest/axilla: Normal chest wall appearance and motion. Nontender with no deformity. No lesions are appreciated. 21:32 Abdomen/GI: Soft, non-tender, with normal bowel sounds. No distension or tympany. No guarding or rebound. No evidence of tenderness throughout. Back: No spinal tenderness. No costovertebral tenderness. Full range of motion. 21:32 Skin: Warm, dry with normal turgor. Normal color with no rashes, no lesions, and no evidence of cellulitis. MS/ Extremity: Pulses equal, no cyanosis. Neurovascular intact. Full, normal range of motion. Neuro: Awake and alert, GCS 15, oriented to person, place, time, and situation. Cranial nerves II-XII grossly intact. Motor strength 5/5 in all extremities. Sensory grossly intact. Cerebellar exam normal. Normal gait. Psych: Awake, alert, with orientation to person, place and time. Behavior, mood, and affect are within normal limits. 21:32 Constitutional: The patient appears alert, awake, febrile, uncomfortable. 21:32 Cardiovascular: Rate: tachycardic, Rhythm: regular, Pulses: no pulse deficits are appreciated, Heart sounds: 21:32 Respiratory: the patient does not display signs of respiratory distress, Respirations: normal, Breath sounds: decreased breath sounds, that are moderate. Vital Signs: 21:02 BP 132 / 81; Pulse 121; Resp 22; Temp 99.4; Pulse Ox 99% on R/A; Weight 83.01 kg; rv1 Height 5 ft. 9 in. ; 21:02 Body Mass Index 27.02 (83.01 kg, 175.26 cm) rv1 MDM: 20:56 Patient medically screened. snw 21:51 Differential diagnosis: viral Infection, bacterial infection, URI, bronchitis, snw pneumonia. Data reviewed: vital signs, nurses notes, lab test result(s), radiologic studies. Management of patient was discussed with the following: Dr. Carter. Historians other than the Patient: Spouse/Significant Other: . Care significantly affected by the following chronic conditions: Stage IV lung ca. Counseling: I had a detailed discussion with the patient and/or guardian regarding: the historical points, exam findings, and any diagnostic results supporting the discharge/admit diagnosis, the presence of at least one elevated blood pressure reading (>120/80) during this emergency department visit, lab results, radiology results, the need for outpatient follow up, for definitive care, MDA, to return to the emergency department if symptoms worsen or persist or if there are any questions or concerns that arise at home. Special discussion: I have referred the patient to see his PCP for further evaluation of high blood pressure. Based on the history and exam findings, there is no indication for further emergent testing or inpatient evaluation. I discussed with the patient/guardian the need to see the institutional aide/oncologist for further evaluation of the symptoms. 21:55 ED course: considered PE however pt states she is on two blood thinners (Plavix and snw Eliquis) and her HR is always elevated.. 10/05 21:07 Order name: Flu; Complete Time: 21:47 rv1 10/05 21:07 Order name: SARS RAPID; Complete Time: 21:47 rv1 10/05 21:07 Order name: Strep; Complete Time: 21:47 rv1 10/05 21:38 Order name: Throat Culture EDMS 10/05 22:27 Order name: Urine W/Microscopic (UAM) snw 10/05 21:07 Order name: XRAY Chest Pa And Lat (2 Views); Complete Time: 21:47 rv1 Administered Medications: 22:22 Drug: Rocephin (cefTRIAXone) IM 1 grams Route: IM; Site: left gluteus; kd3 22:40 Follow up: Response: No adverse reaction kd3 22:22 Drug: Tessalon Perle PO 200 mg Route: PO; kd3 22:40 Follow up: Response: No adverse reaction kd3 22:22 Drug: LevOfloxacin PO 500 mg Route: PO; kd3 22:39 Follow up: Response: No adverse reaction kd3 Disposition Summary: 10/05/22 21:54 Discharge Ordered Location: Home snw Condition: Stable snw Diagnosis - Other pneumonia, unspecified organism snw Followup: snw - With: Emergency Department - When: As needed - Reason: Worsening of condition Followup: snw - With: Private Physician - When: 1 - 2 days - Reason: Recheck today's complaints, Continuance of care, Re-evaluation by your physician Discharge Instructions: - Discharge Summary Sheet snw - Community-Acquired Pneumonia, Adult snw Forms: - Medication Reconciliation Form snw - Thank You Letter snw - Antibiotic Education snw - Prescription Opioid Use snw Prescriptions: - levofloxacin 500 mg Oral Tablet - take 1 tablet by ORAL route once daily for 7 days; 7 tablet; Refills: 0, snw Product Selection Permitted Signatures: Dispatcher [employer] Judit Patel FNP-Octaviano MARKER MACHINE-Jaclyn Plummer RN RN kd3
[2022-10-05] MEDS ORDERED: CEFTRIAXONE 1000 MG/VIAL ONE (22:07)
[2022-10-05] MEDS ORDERED: levoFLOXacin 500 MG TAB ONE (22:07)
[2022-10-05] MEDS ORDERED: BENZONATATE 100 MG CAP PO ONE (22:08)
[2022-10-05] MEDS ORDERED: WATER FOR INJ,STERILE 10 ML ONE (22:08)
[2022-10-05 22:53] VITALS: BP 132/81; TEMP 99.4; O2SAT 99
== END 2022-10-05 22:40 | disposition home or self-care (01) ==
LOC: ER 20:47
DX: J18.8 Other pneumonia, unspecified organism (principal); Z20.822 Contact with and (suspected) exposure to COVID-19; Z88.1 Allergy status to other antibiotic agents; Z91.018 Allergy to other foods
CPT/HCPCS: 87070; 36415; 87081; 87804 ×2; 71046; 87811; J0696